=== PATIENT | male | born 1965 ===

== ENCOUNTER 2017-06-14 11:18 | Emergency (ER) | payer MEDICARE, MEDICAID ==
--- NOTE | 2017-06-14 12:38 | C.PDOC ---
History Of Present Illness 52-YEAR-OLD MALE, REFERRED TO THE EMERGENCY DEPARTMENT BY PODIATRY FOR R LEG SWELL. NO TRAUMA/PAIN. NO PE RISK FACTORS. EXAM R LOWER LEG SWELL. NO EDEMA. REMAINDER NEG Time Seen by Provider: 06/14/17 11:57 Chief Complaint (Nursing): Lower Extremity Problem/Injury Past Medical History Reviewed: Historical Data, Nursing Documentation, Vital Signs Vital Signs: Last Vital Signs Temp 98.4 F 06/14/17 11:33 Pulse 82 06/14/17 11:33 Resp 18 06/14/17 11:33 BP 137/78 06/14/17 11:33 Pulse Ox 98 06/14/17 13:00 - Medical History PMH: Anxiety, HTN Surgical History: Pacemaker Family History: States: No Known Family Hx - Social History Hx Alcohol Use: Yes Hx Substance Use: No Review Of Systems Except As Marked, All Systems Reviewed And Found Negative. Constitutional: Negative for: Fever, Chills Respiratory: Negative for: Shortness of Breath Gastrointestinal: Negative for: Vomiting Musculoskeletal: Positive for: Leg Pain Neurological: Negative for: Weakness, Numbness Physical Exam - Physical Exam Appears: Non-toxic, No Acute Distress Skin: Warm, Dry, No Rash Head: Atraumatic, Normacephalic Eye(s): bilateral: Normal Inspection, PERRL Nose: Normal Oral Mucosa: Moist Lips: Normal Appearing Neck: Normal ROM Cardiovascular: Rhythm Regular, No Murmur Respiratory: Normal Breath Sounds, No Accessory Muscle Use Extremity: Normal ROM, No Tenderness, No Deformity, Swelling (RIGHT LOWER LEG. NO EDEMA) Neurological/Psych: Oriented x3, Normal Speech ED Course And Treatment O2 Sat by Pulse Oximetry: 98 (RA) Pulse Ox Interpretation: Normal - Other Rad DOPPLER X-Ray: Read By Radiologist (NEGATIVE PER SHERIFF'S OFFICER REPORT) Reevaluation Time: 13:20 Reassessment Condition: Unchanged (ADVISED FU PODIATRY, POSSIBLE NEED FOR REPEAT DOPPLER IN 1 WEEK IF PERSIST SX) Disposition Counseled Patient/Family Regarding: Studies Performed, Diagnosis, Need For Followup - Disposition Referrals: YOUR,SENIOR BENEFITS ANALYST [Other] Disposition: HOME/ ROUTINE Disposition Time: 13:21 Condition: GOOD Additional Instructions: FOLLOW UP WITH YOUR SENIOR BENEFITS ANALYST. YOU MAY NEED A REPEAT DOPPLER STUDY IF PERSIST SYMPTOMS. RETURN IF WORSENING SYMPTOMS, CHEST PAIN, DIFFICULTY BREATHING, DIZZINESS. Instructions: Leg Edema (ED) Forms: [facility] (Barbadian) - Clinical Impression Clinical Impression: Leg swelling - Scribe Statement The provider has reviewed the documentation as recorded by the Scribe (Aldo Pratt) All medical record entries made by the Scribe were at my direction and personally dictated by me. I have reviewed the chart and agree that the record accurately reflects my personal performance of the history, physical exam, medical decision making, and the department course for this patient. I have also personally directed, reviewed, and agree with the discharge instructions and disposition.
[2017-06-14 13:48] VITALS: BP 120/76; PULSE 79; RESP 20; TEMP 97.7; O2SAT 97
--- NOTE | 2017-06-15 15:20 | VASCLAB ---
PROCEDURE: Right Lower Extremity Venous Duplex Exam. HISTORY: SWELLING PRIORS: None. TECHNIQUE: Right common femoral, femoral, popliteal and posterior tibial, peroneal and great saphenous veins were evaluated. Flow was assessed with color Doppler, compressibility, assessment of phasic flow and augmentation response. Report prepared by VIC Butts, RVT FINDINGS: RIGHT: 1. Common Femoral Vein: 1.1. Compressibility - Fully compressible: Thrombus - None: Flow - Phasic: Augmentation -Normal: Reflux - None. 2. Femoral Vein: 2.1. Compressibility - Fully compressible: Thrombus - None: Flow - Phasic: Augmentation -Normal: Reflux - None. 3. Popliteal Vein: 3.1. Compressibility - Fully compressible: Thrombus - None: Flow - Phasic: Augmentation -Normal: Reflux - None. 4. Posterior Tibial Vein: 4.1. Compressibility - Fully compressible: Thrombus - None: Flow - Phasic: Augmentation -Normal: Reflux - None. 5. Peroneal Vein: 5.1. Compressibility - Fully compressible: Thrombus - None: Flow - Phasic: Augmentation -Normal: Reflux - None. 6. Great Saphenous Vein: 6.1. Compressibility - Fully compressible: Thrombus -None: Flow - Phasic: Augmentation - Normal: Reflux - None. OTHER FINDINGS: IMPRESSION: No evidence of deep or superficial vein thrombosis of the right lower extremity with excellent venous flow. Normal valve function noted of the right side. Normal venous flow noted in the left common femoral vein.
== END 2017-06-14 13:50 | disposition home or self-care (01) ==
LOC: C.ER 11:18
DX: M79.89 Other specified soft tissue disorders (principal); I10 Essential (primary) hypertension

== ENCOUNTER 2017-09-09 10:51 | Emergency (ER) | payer MEDICARE, MEDICAID ==
[2017-09-09 11:01] VITALS: BMI 45.3
[2017-09-09 11:44] VITALS: BP 130/78; PULSE 68; RESP 20; TEMP 98.2; O2SAT 98
[2017-09-09] MEDS ORDERED: Amoxicillin-Clav 875-125 mg Tab PO STA (11:51)
--- NOTE | 2017-09-09 11:53 | C.PDOC ---
History Of Present Illness 52 yo male come in for evaluation of Right earache gradually developed for past few days. Pt reports, today noted some clear discharges from ear. Otherwise, denies high fever, chills, headache, known trauma or injury, vertigo, dizziness , recent illness, sore throat, neck pain, denies nay other active complaints. Ambulate to ED for evaluation, not in any apparent distress. Time Seen by Provider: 09/09/17 11:06 Chief Complaint (Nursing): ENT Problem History Per: Patient Onset/Duration Of Symptoms: Gradual Past Medical History Reviewed: Historical Data, Nursing Documentation, Vital Signs Vital Signs: Last Vital Signs Temp 98.2 F 09/09/17 11:40 Pulse 68 09/09/17 11:40 Resp 20 09/09/17 11:40 BP 130/78 09/09/17 11:40 Pulse Ox 98 09/09/17 11:56 - Medical History PMH: Anxiety, HTN Surgical History: Pacemaker Family History: States: No Known Family Hx - Social History Hx Alcohol Use: Yes Hx Substance Use: No - Immunization History Hx Tetanus Toxoid Vaccination: No Hx Influenza Vaccination: Yes Hx Pneumococcal Vaccination: No Review Of Systems Except As Marked, All Systems Reviewed And Found Negative. Constitutional: Negative for: Fever, Chills ENT: Positive for: Ear Pain, Ear Discharge. Negative for: Nose Discharge, Nose Congestion, Mouth Swelling, Throat Pain, Throat Swelling Respiratory: Negative for: Cough, Shortness of Breath Musculoskeletal: Negative for: Neck Pain Skin: Negative for: Rash Neurological: Negative for: Altered Mental Status, Headache, Dizziness Physical Exam - Physical Exam Appears: Well, Non-toxic, No Acute Distress Skin: Normal Color, Warm, Dry Head: Normacephalic Eye(s): bilateral: PERRL Ear(s): Left: Normal, Right: TM Erythema, Other (mild ear canal edema with scant greenish discharges. No mastoid tenderness.) Nose: No Flaring, No Discharge Oral Mucosa: Moist, No Drooling Tongue: Normal Appearing Lips: Normal Appearing Throat: No Erythema, No Drooling Neck: Trachea Midline, Supple Lymphatic: No Adenopathy (cervical) Extremity: Normal ROM, No Deformity, No Swelling Neurological/Psych: Oriented x3, Normal Speech ED Course And Treatment O2 Sat by Pulse Oximetry: 98 Pulse Ox Interpretation: Normal Progress Note: On re-evaluation, pt is afebrile, hemodynamicaly stable. Non- toxic. PulseOx 98% RA. ENT: exam c/w acute otitis externa, OM to Right ear. NO mastoid tenderness, edema or erythema. Neck: Supple, (-) meningeal sign. Lungs: CTA B/L, BS equal B/L. Neurologicaly intact. Pt advised on course of ds. REf. to f/u with PMD, ENT in 2 days for re-eval. return to ED if any worsening or new changes. Disposition Counseled Patient/Family Regarding: Diagnosis, Need For Followup, Rx Given - Disposition Referrals: Michoacano Jacome MD [Staff Provider] - Disposition: HOME/ ROUTINE Disposition Time: 11:52 Condition: STABLE Additional Instructions: Keep ear clean, dry Avoid water exposure Follow up with PMD, ENT in2 days for re-evaluation. Return to ED if any worsening or new changes. Prescriptions: Amoxicillin/Clavulanate [Augmentin 875 MG-125 MG] 1 tab PO BID #14 tab Ibuprofen [Motrin Tab] 600 mg PO Q6 #20 tab Neomycin/Polymyxin/Hydrocortis [Cortisporin Otic Susp] 6 drop AD TID #1 bottle Instructions: Ear Infections (Otitis Media), Outer Ear Infection Forms: [facility] (Albanian) Print Language: MEXICAN - Clinical Impression Clinical Impression: Otitis externa, Otitis media
[2017-09-09] MEDS ORDERED: Amoxicillin-Clav 875-125 mg Tab PO ONE (12:25)
== END 2017-09-09 12:26 | disposition home or self-care (01) ==
LOC: C.ER 10:51
DX: H60.91 Unspecified otitis externa, right ear (principal); H66.91 Otitis media, unspecified, right ear

== ENCOUNTER 2018-03-02 10:25 | Emergency (ER) | payer MEDICARE, MEDICAID ==
[2018-03-02 10:25] VITALS: BMI 45.3
[2018-03-02 10:39] VITALS: TEMP 99.5
[2018-03-02] MEDS ORDERED: Albuterol 0.083% Inhal Sol (2.5 mg/3 mL) UD INH STA (11:13)
--- NOTE | 2018-03-02 11:13 | C.PDOC ---
History Of Present Illness 52 y/o male presents to the ED complaining of cough, chest congestion, and pleuritic pain for 2 days. Associated with subjective fever. Denies prior history of asthma or smoking. Otherwise patient denies any SOB, MACHUCA, wheezing, palpitations, dizziness, weakness, or other associated symptoms. Time Seen by Provider: 03/02/18 11:10 Chief Complaint (Nursing): Flu-like Symptoms History Per: Patient History/Exam Limitations: no limitations Onset/Duration Of Symptoms: Days (x2) Current Symptoms Are (Timing): Still Present Past Medical History Reviewed: Historical Data, Nursing Documentation, Vital Signs Vital Signs: Last Vital Signs Temp 99.5 F 03/02/18 10:34 Pulse 99 H 03/02/18 10:34 Resp 21 03/02/18 10:34 BP 150/74 03/02/18 10:34 Pulse Ox 100 03/02/18 10:34 - Medical History PMH: Anxiety, HTN, Hypercholesterolemia Surgical History: Back Surgery (3 screws), Pacemaker Family History: States: No Known Family Hx - Social History Hx Tobacco Use: No (former) Hx Alcohol Use: No Hx Substance Use: No - Immunization History Hx Tetanus Toxoid Vaccination: (unk) Hx Influenza Vaccination: Yes (2018) Hx Pneumococcal Vaccination: (unk) Review Of Systems Except As Marked, All Systems Reviewed And Found Negative. Constitutional: Positive for: Fever (subjective). Negative for: Sweats, Other (bodyaches) Eyes: Negative for: Vision Change Cardiovascular: Positive for: Other (Chest congestion). Negative for: Palpitations, Light Headedness Respiratory: Positive for: Cough, Pleuritic Pain. Negative for: Shortness of Breath, SOB with Excertion, Wheezing Gastrointestinal: Negative for: Vomiting, Diarrhea Neurological: Negative for: Weakness, Numbness, Headache, Dizziness Physical Exam - Physical Exam Appears: Non-toxic, No Acute Distress Skin: Normal Color, Warm, Dry Head: Atraumatic, Normacephalic Eye(s): bilateral: Normal Inspection, PERRL, EOMI Ear(s): Bilateral: Normal Nose: Normal, No Discharge Oral Mucosa: Moist Throat: Normal, No Erythema, No Exudate Neck: Normal ROM Chest: Symmetrical, No Tenderness Cardiovascular: Rhythm Regular, No Murmur Respiratory: No Accessory Muscle Use, No Rhonchi, No Wheezing, Other (Occasional bronchial cough, no retractions) Extremity: Bilateral: Atraumatic, Normal Color And Temperature Pulses: Left Radial: Normal, Right Radial: Normal Neurological/Psych: Oriented x3, Normal Speech ED Course And Treatment O2 Sat by Pulse Oximetry: 100 (RA) Pulse Ox Interpretation: Normal - Radiology CXR: Interpreted by Me CXR Interpretation: Yes: No Acute Disease Progress - Data Reviewed Data Reviewed: Diagnostic imaging, Old records Medical Decision Making Medical Decision Making: Initial Impression: 52 y/o M with cough, chest congestion, and pleuritic pain Initial Plan: --Chest x-ray --Tylenol 975 mg PO --Motrin 600 mg PO --Tessalon perles 200 mg PO --Albuterol nebulizer x1 --Reassess and dispo CXR read by me, and is negative. Informed patient regarding results and discharge plan. Patient reports improvement after ED treatment and is stable for d/c home. Prescriptions provided for tessalon perles, antipyretics, and ventolin inhaler. Disposition Counseled Patient/Family Regarding: Studies Performed, Diagnosis, Need For Followup, Rx Given - Disposition Referrals: YOUR,PMD [Other] Disposition: HOME/ ROUTINE Disposition Time: 11:20 Condition: IMPROVED Prescriptions: Acetaminophen [Tylenol Extra Strength] 2 tab PO Q6 #30 tablet Albuterol HFA [Ventolin HFA 90 mcg/actuation (8 g)] 1 puff IH Q4 #1 inhaler Benzonatate [Tessalon Perles] 200 mg PO TID PRN #15 sgl PRN Reason: Cough Ibuprofen [Motrin] 600 mg PO Q6 #30 tab Instructions: Viral Upper Respiratory Infection, Adult (DC) Forms: [employer] (Gambian), Work Excuse Print Language: CYPRIOT - Clinical Impression Clinical Impression: URI (upper respiratory infection) - Scribe Statement The provider has reviewed the documentation as recorded by the Scribe (Rachael Gross) Provider Attestation: All medical record entries made by the Scribe were at my direction and personally dictated by me. I have reviewed the chart and agree that the record accurately reflects my personal performance of the history, physical exam, medical decision making, and the department course for this patient. I have also personally directed, reviewed, and agree with the discharge instructions and disposition.
[2018-03-02] MEDS ORDERED: Albuterol 0.083% Inhal Sol (2.5 mg/3 mL) UD ONE (11:19)
[2018-03-02 11:47] VITALS: BP 130/70; PULSE 82; RESP 20
[2018-03-02 11:58] VITALS: O2SAT 100
--- NOTE | 2018-03-02 14:24 | RAD ---
Date of service: 03/02/2018 HISTORY: COUGH COMPARISON: No prior. TECHNIQUE: Chest PA and lateral FINDINGS: LUNGS: No active pulmonary disease. PLEURA: No significant pleural effusion identified. No pneumothorax apparent. CARDIOVASCULAR: No radiographic findings to suggest acute or significant cardiovascular disease. Position/ configuration of pacemaker device: Satisfactory. OSSEOUS STRUCTURES: No significant abnormalities. VISUALIZED UPPER ABDOMEN: Normal. OTHER FINDINGS: None. IMPRESSION: No active disease. Concordant results with the preliminary interpretation rendered by the emergency department physician procedure.
== END 2018-03-02 12:01 | disposition home or self-care (01) ==
LOC: C.ER 10:25
DX: J06.9 Acute upper respiratory infection, unspecified (principal)

== ENCOUNTER 2018-03-15 22:17 | Inpatient (IN) | payer MEDICARE, MEDICAID ==
[2018-03-15 22:18] VITALS: BMI 45.3
[2018-03-15] MEDS ORDERED: Aspirin 325 mg EC Tablets PO STA (22:38)
[2018-03-15] MEDS ORDERED: Nitroglycerin 2% Ointment Foilpak UD TOP STA (22:38)
[2018-03-15 22:43] LABS: BASO # 0.1 K/uL (0.0-0.2); BASO % 0.5 % (0.0-2.0); EOS # 0.1 K/uL (0.0-0.7); EOS % 1.4 % (0.0-4.0); HEMOGLOBIN 16.2 g/dL (12.0-18.0); LYMPH # 2.6 K/uL (1.0-4.3); LYMPH % 25.1 % (20.0-40.0); MEAN CELL VOLUME 98.8 fL (80.0-94.0); MEAN CORPUSCULAR HEMOGLOBIN 33.5 pg (27.0-31.0); MEAN CORPUSCULAR HGB CONC 33.9 g/dL (33.0-37.0); MEAN PLATELET VOLUME 10.2 fL (7.2-11.7); MONO # 0.6 K/uL (0.0-0.8); MONO % 6.1 % (0.0-10.0); NEUT # 6.9 K/uL (1.8-7.0); NEUT % 66.9 % (50.0-75.0); RBC 4.85 Mil/uL (4.40-5.90); RED CELL DISTRIBUTION WIDTH 13.7 % (11.5-14.5); WHITE BLOOD COUNT 10.4 K/uL (4.8-10.8)
[2018-03-15] MEDS ORDERED: Aspirin 325 mg EC Tablets PO ONE (22:46)
[2018-03-15] MEDS ORDERED: Nitroglycerin 2% Ointment Foilpak UD TOP ONE (22:46)
[2018-03-15 22:51] LABS: INR 1.3; PROTHROMBIN TIME 14.2 SECONDS (9.7-12.2)
[2018-03-15 22:56] LABS: ALB/GLOB RATIO 1.3 (1.0-2.1); ALBUMIN 4.3 g/dL (3.5-5.0); ALT/SGPT 21 U/L (21-72); AST/SGOT 17 U/L (17-59); BLOOD UREA NITROGEN 11 mg/dL (9-20); CALCIUM 9.4 mg/dl (8.6-10.4); GFR NON-AFRICAN AMERICAN > 60
[2018-03-15 23:07] LABS: B-TYPE NATRIURETIC PEPTIDE 211 pg/mL (0-900)
--- NOTE | 2018-03-15 23:11 | C.PDOC ---
History Of Present Illness 53 year old male brought in by family for a complaint of chest pressure/pain radiating to the left arm that began [employer], associated with anxiety. Patient has a Hx of ID with stent x1 seven years ago and Hx of anxiety. He take carvedilol BID but did not take his dose today, he also takes klonopin PRN but did not take it today. Denies fever, chills, nausea, or vomiting. Patient still smokes a half a pack a day, smells like cigarette smoke. Time Seen by Provider: 03/15/18 22:33 Chief Complaint (Nursing): Chest Pain History Per: Patient History/Exam Limitations: no limitations Onset/Duration Of Symptoms: Hrs Current Symptoms Are (Timing): Still Present Quality: Pressure Associated Symptoms: Other (Anxiety). denies: Nausea, Dyspnea, Diaphoresis, Syncope Modifying Factors: None Exacerbating Factors: None Alleviating Factors: None Recent travel outside of the [place]: No Past Medical History Reviewed: Historical Data, Nursing Documentation, Vital Signs Vital Signs: Last Vital Signs Temp 98.6 F 03/15/18 22:24 Pulse 101 H 03/15/18 22:53 Resp 18 03/15/18 22:53 BP 142/87 03/15/18 22:53 Pulse Ox 96 03/15/18 22:53 - Medical History PMH: Anxiety, HTN, Hypercholesterolemia Surgical History: Back Surgery (3 screws), Pacemaker Family History: States: Unknown Family Hx - Social History Hx Tobacco Use: No (former) Hx Alcohol Use: No Hx Substance Use: No - Immunization History Hx Tetanus Toxoid Vaccination: (unk) Hx Influenza Vaccination: Yes (2018) Hx Pneumococcal Vaccination: (unk) Review Of Systems Constitutional: Negative for: Fever, Chills Cardiovascular: Positive for: Chest Pain Respiratory: Negative for: Cough, Shortness of Breath Gastrointestinal: Negative for: Nausea, Vomiting Neurological: Negative for: Weakness, Numbness Psych: Positive for: Anxiety Physical Exam - Physical Exam Appears: Non-toxic, Other (Obese, anxious) Skin: Warm, Dry Head: Atraumatic, Normacephalic Eye(s): bilateral: Normal Inspection Oral Mucosa: Moist Neck: Normal, Supple Chest: No Tenderness, Other (Left upper chest) Cardiovascular: Rhythm Regular Respiratory: Normal Breath Sounds, No Rales, No Rhonchi, No Wheezing Gastrointestinal/Abdominal: Soft, No Tenderness Extremity: Other (1/4 pitting edema lower extremities) Neurological/Psych: Oriented x3, Normal Speech ED Course And Treatment - Laboratory Results Result Diagrams: 03/15/18 22:38 03/15/18 22:38 O2 Sat by Pulse Oximetry: 96 (Room air) Pulse Ox Interpretation: Normal Progress Note: EKG, blood work, and CXR ordered. Coreg, aspirin, klonopin administered; nitro-bid applied. Disposition - Disposition Referrals: Brielle Roque MD [Primary Care Provider] - Forms: [employer] (Uzbek) - Scribe Statement The provider has reviewed the documentation as recorded by the Scribe Kalyan Cavanaugh All medical record entries made by the Scribe were at my direction and personally dictated by me. I have reviewed the chart and agree that the record accurately reflects my personal performance of the history, physical exam, medical decision making, and the department course for this patient. I have also personally directed, reviewed, and agree with the discharge instructions and disposition.
[2018-03-15 23:34] VITALS: O2SAT 94
[2018-03-16] MEDS ORDERED: Albuterol HFA 90 mcg/actuation (8 g) IH SCH
[2018-03-16 00:09] LABS: CK-MB 2.3 ng/mL (0.0-3.38); TROPONIN I 0.013 ng/mL (0.00-0.120)
[2018-03-16 07:57] VITALS: RESP 20; TEMP 97.5
--- NOTE | 2018-03-16 08:00 | RAD ---
Date of service: 03/15/2018 PROCEDURE: CHEST RADIOGRAPH, 1 VIEW HISTORY: SOB COMPARISON: 03/02/2018 FINDINGS: LUNGS: No consolidation. Slightly decreased lung volumes PLEURA: No pneumothorax. CARDIOVASCULAR: Cardiomegaly Position/ configuration of pacemaker Satisfactory.-similar Interval increased pulmonary venous congestion-now mild There is absence of aortic atherosclerotic calcification on x-ray. OSSEOUS STRUCTURES: No significant abnormalities. VISUALIZED UPPER ABDOMEN: Normal. OTHER FINDINGS: None. IMPRESSION: Cardiomegaly Position/ configuration of pacemaker Satisfactory.-similar Interval increased pulmonary venous congestion-now mild
[2018-03-16 09:11] VITALS: BP 116/79; PULSE 83
[2018-03-16] MEDS ORDERED: Enoxaparin 40 mg Syringe SC SCH (10:00)
[2018-03-16] MEDS ORDERED: guaiFENesin DM 100 mg-10 mg/5 ml UD PO PRN (10:01)
[2018-03-16 12:09] LABS: BASO % 0.5 % (0.0-2.0); EOS # 0.2 K/uL (0.0-0.7); EOS % 2.4 % (0.0-4.0); HEMOGLOBIN 15.6 g/dL (12.0-18.0); LYMPH # 2.7 K/uL (1.0-4.3); LYMPH % 32.3 % (20.0-40.0); MEAN CELL VOLUME 99.3 fL (80.0-94.0); MEAN CORPUSCULAR HEMOGLOBIN 33.6 pg (27.0-31.0); MEAN CORPUSCULAR HGB CONC 33.9 g/dL (33.0-37.0); MEAN PLATELET VOLUME 10.6 fL (7.2-11.7); MONO # 0.7 K/uL (0.0-0.8); MONO % 7.7 % (0.0-10.0); NEUT # 4.8 K/uL (1.8-7.0); NEUT % 57.1 % (50.0-75.0); RBC 4.64 Mil/uL (4.40-5.90); RED CELL DISTRIBUTION WIDTH 13.5 % (11.5-14.5); WHITE BLOOD COUNT 8.5 K/uL (4.8-10.8)
--- NOTE | 2018-03-16 12:27 | CP.PCM.CON ---
History of Present Illness - History of Present Illness History of Present Illness: I was asked to evaluate patient by Dr Perez. Patient seen 03/16/18 at 12:20 pm Patient is a 53 year old male with ischemic cardiomyopathy (occluded RCA) s/p AICD HTn, hypercholesterolemia who presents with chest pain. The patient describes left arm pain which began while sitting. He states the pain radiated to his shoulder and then his chest. He presented to [facility] for further management. he denies current chest pain. Of noted stress perfomred in the office last month was negative for ischemia. Review of Systems - Constitutional Constitutional: absent: As Per HPI, Anorexia, Chills, Daytime Sleepiness, Excessive Sweating, Fatigue, Fever, Frequent Falls, Headache, Increased Appetite, Lethargy, Malaise, Night Sweats, Snoring, Sleep Apnea, Weight Gain, Weight Loss, Weakness, Other - EENT Eyes: absent: As Per HPI, Blind Spots, Blurred Vision, Change in Vision, Decreased Night Vision, Diplopia, Discharge, Dry Eye, Exophthalmos, Floaters, Irritation, Itchy Eyes, Loss of Peripheral Vision, Pain, Photophobia, Requires Corrective Lenses, Sees Flashes, Spots in Vision, Tunnel Vision, Other Visual Disturbances, Loss of Vision, Other Ears: absent: As Per HPI, Decreased Hearing, Ear Discharge, Ear Pain, Tinnitus, Abnormal Hearing, Disequilibrium, Dizziness, Other Nose/Mouth/Throat: absent: As Per HPI, Epistaxis, Nasal Congestion, Nasal Discharge, Nasal Obstruction, Nasal Trauma, Nose Pain, Post Nasal Drip, Sinus Pain, Sinus Pressure, Bleeding Gums, Change in Voice, Dental Pain, Dry Mouth, Dysphagia, Halitosis, Hoarsness, Lip Swelling, Mouth Lesions, Mouth Pain, Odynophagia, Sore Throat, Throat Swelling, Tongue Swelling, Facial Pain, Neck Pain, Neck Mass, Other - Cardiovascular Cardiovascular: Chest Pain - Respiratory Respiratory: absent: As Per HPI, Cough, Dyspnea, Hemoptysis, Dyspnea on Exertion, Wheezing, Snoring, Stridor, Pain on Inspiration, Chest Congestion, Excessive Mucous Production, Change in Mucous Color, Pain with Coughing, Other - Gastrointestinal Gastrointestinal: absent: As Per HPI, Abdominal Pain, Belching, Bloating, Change in Bowel Habits, Change in Stool Character, Coffee Ground Emesis, Constipation, Cramping, Diarrhea, Dyspepsia, Dysphagia, Early Satiety, Excessive Flatus, Fecal Incontinence, Heartburn, Hematemesis, Hematochezia, Loose Stools, Melena, Nausea, Odynophagia, Temesmus, Vomiting, Other - Genitourinary Genitourinary: absent: As Per HPI, Change in Urinary Stream, Difficulty Urinating, Dysuria, Flank Pain, Hematuria, Pyuria, Nocturia, Urinary Inco ntinence, Urinary Frequency, Urinary Hesitance, Urinary Urgency, Voiding Freq/Small Amts, Freq UTI, Hx Renal/Bladder Calculi, Hx /Renal Surgery, Bladder Distension, Other - Musculoskeletal Musculoskeletal: absent: As Per HPI, Abnormal Gait, Arthralgias, Atrophy, Back Pain, Deformity, Joint Swelling, Limited Range of Motion, Loss of Height, Muscle Cramps, Muscle Weakness, Myalgias, Neck Pain, Numbness, Radiating Pain into Limb, Stiffness, Tingling, Other - Integumentary Integumentary: absent: As Per HPI, Acne, Alopecia, Bleeding Lesions, Change in Hair, Change in Nails, Change in Pigmentation, Changing Lesions, Dry Skin, Erythema, Furuncle, Hirsutism, Lesions, New Lesions, Non-Healing Lesions, Photosensitivity, Pruritus, Rash, Skin Pain, Skin Ulcer, Sores, Striae, Swelling, Unusual Bruising, Wounds, Jaundice, Other - Neurological Neurological: absent: As Per HPI, Abnormal Gait, Abnormal Hearing, Abnormal Movements, Abnormal Speech, Behavioral Changes, Burning Sensations, Confusion, Convulsions, Disequilibrium, Dizziness, Numbness, Focal Weakness, Frequent Falls, Headaches, Lack of Coordination, Loss of Vision, Memory Loss, Paresthesias, Radicular Pain, Restless Legs, Sensory Deficit, Syncope, Tingling, Tremor, Vertigo, Weakness, Other Visual Disturbances, Other - Psychiatric Psychiatric: absent: As Per HPI, Abnormal Sleep Pattern, Anhedonia, Anxiety, Auditory Hallucinations, Behavioral Changes, Change in Appetite, Change in Libido, Confusion, Depression, Difficulty Concentrating, Hallucinations, Homicidal Ideation, Hopelessness, Irritability, Memory Loss, Mood Swings, Panic Attacks, Paranoia, Suicidal Ideation, Visual Hallucinations, Tactile Hallucinations, Other - Endocrine Endocrine: absent: As Per HPI, Change in Body Appearance, Change in Libido, Cold Intolorance, Deepening of Voice, Excessive Sweating, Fatigue, Flushing, Heat Intolorance, Increase in Ring/Shoe/Hat Size, Palpitations, Polydipsia, Polyphagia, Polyuria, Other - Hematologic/Lymphatic Hematologic: absent: As Per HPI, Easy Bleeding, Easy Bruising, Lymphadenopathy, Other Past Patient History - Infectious Disease Hx of Infectious Diseases: None - Past Social History Smoking Status: Light Smoker < 10 Cigarettes Daily - CARDIAC Hx Hypercholesterolemia: Yes Hx Hypertension: Yes Hx Pacemaker: Yes - PULMONARY Hx Respiratory Disorders: No - NEUROLOGICAL Hx Neurological Disorder: No - HEENT Hx HEENT Problems: No - RENAL Hx Chronic Kidney Disease: No - ENDOCRINE/METABOLIC Hx Endocrine Disorders: No - HEMATOLOGICAL/ONCOLOGICAL Hx Blood Disorders: No - INTEGUMENTARY Hx Dermatological Problems: No - MUSCULOSKELETAL/RHEUMATOLOGICAL Hx Musculoskeletal Disorders: No Hx Falls: No - GASTROINTESTINAL Hx Gastrointestinal Disorders: No - GENITOURINARY/GYNECOLOGICAL Hx Genitourinary Disorders: No - PSYCHIATRIC Hx Anxiety: Yes Hx Substance Use: No - SURGICAL HISTORY Hx Surgeries: Yes Hx Coronary Stent: Yes Other/Comment: Pacemaker insertion - ANESTHESIA Hx Anesthesia: Yes Hx Anesthesia Reactions: No Hx Malignant Hyperthermia: No Meds Allergies/Adverse Reactions: Allergies Allergy/AdvReac Type Severity Reaction Status Date / Time No Known Allergies Allergy Verified 03/15/18 22:19 - Medications Medications: Current Medications Albuterol (Ventolin Hfa 90 Mcg/Actuation (8 G)) 1 puff IH RQ4 [facility] Last Admin: 03/16/18 07:47 Dose: Not Given Aspirin (Ecotrin) 81 mg PO DAILY [facility] Last Admin: 03/16/18 09:47 Dose: 81 mg Carvedilol (Coreg) 12.5 mg PO BID [facility] Last Admin: 03/16/18 09:11 Dose: 12.5 mg Clonazepam (Klonopin) 0.5 mg PO DAILY [facility] Last Admin: 03/16/18 09:11 Dose: 0.5 mg Enoxaparin Sodium (Lovenox) 40 mg SC DAILY [facility] Last Admin: 03/16/18 09:12 Dose: 40 mg Fluoxetine HCl (Prozac) 20 mg PO DAILY [facility] Last Admin: 03/16/18 09:12 Dose: 20 mg Guaifenesin/Dextromethorphan (Robitussin Dm) 5 ml PO Q4H PRN PRN Reason: Cough Last Admin: 03/16/18 11:20 Dose: 5 ml Home Med (Acetaminophen [Tylenol Extra Strength]) 2 tab PO Q6 [facility] Rosuvastatin Calcium (Crestor) 20 mg PO HS [facility] Physical Exam - Constitutional Appears: Non-toxic - Head Exam Head Exam: NORMAL INSPECTION - Eye Exam Eye Exam: Normal appearance - ENT Exam ENT Exam: Mucous Membranes Moist - Neck Exam Neck exam: Positive for: Full Rom - Respiratory Exam Respiratory Exam: NORMAL BREATHING PATTERN - Cardiovascular Exam Cardiovascular Exam: REGULAR RHYTHM - GI/Abdominal Exam GI & Abdominal Exam: Normal Bowel Sounds - Rectal Exam Rectal Exam: Deferred - Extremities Exam Extremities exam: Negative for: pedal edema - Back Exam Back exam: NORMAL INSPECTION - Neurological Exam Neurological exam: Alert, Oriented x3 - Psychiatric Exam Psychiatric exam: Normal Affect - Skin Skin Exam: Normal Color Results - Vital Signs Recent Vital Signs: Last Vital Signs Temp 97.5 F L 03/16/18 07:56 Pulse 83 03/16/18 09:10 Resp 20 03/16/18 07:56 BP 116/79 03/16/18 09:11 Pulse Ox 94 L 03/16/18 07:56 - Labs Result Diagrams: 03/16/18 11:59 03/15/18 22:38 Labs: Laboratory Results - last 24 hr 03/15/18 03/15/18 03/15/18 22:38 22:38 22:38 WBC 10.4 RBC 4.85 Hgb 16.2 Hct 47.9 MCV 98.8 H MCH 33.5 H MCHC 33.9 RDW 13.7 Plt Count 152 MPV 10.2 Neut % (Auto) 66.9 Lymph % (Auto) 25.1 [place] % (Auto) 6.1 Eos % (Auto) 1.4 Baso % (Auto) 0.5 Neut # (Auto) 6.9 Lymph # (Auto) 2.6 [place] # (Auto) 0.6 Eos # (Auto) 0.1 Baso # (Auto) 0.1 PT 14.2 H INR 1.3 APTT 38 H Sodium 142 Potassium 3.9 Chloride 103 Carbon Dioxide 28 Anion Gap 15 BUN 11 Creatinine 1.1 Est GFR ( Amer) > 60 Est GFR (Non-Af Amer) > 60 POC Glucose (mg/dL) Random Glucose 146 H Calcium 9.4 Total Bilirubin 0.9 AST 17 ALT 21 Alkaline Phosphatase 72 Total Creatine Kinase CK-MB (Mass) Troponin I 0.0160 NT-Pro-B Natriuret Pep 211 Total Protein 7.5 Albumin 4.3 Globulin 3.2 Albumin/Globulin Ratio 1.3 Triglycerides Cholesterol LDL Cholesterol Direct HDL Cholesterol 03/15/18 03/16/18 03/16/18 23:48 06:11 11:59 WBC 8.5 RBC 4.64 Hgb 15.6 Hct 46.1 MCV 99.3 H MCH 33.6 H MCHC 33.9 RDW 13.5 Plt Count 137 MPV 10.6 Neut % (Auto) 57.1 Lymph % (Auto) 32.3 [place] % (Auto) 7.7 Eos % (Auto) 2.4 Baso % (Auto) 0.5 Neut # (Auto) 4.8 Lymph # (Auto) 2.7 [place] # (Auto) 0.7 Eos # (Auto) 0.2 Baso # (Auto) 0.0 PT INR APTT Sodium Potassium Chloride Carbon Dioxide Anion Gap BUN Creatinine Est GFR ( Amer) Est GFR (Non-Af Amer) POC Glucose (mg/dL) 101 Random Glucose Calcium Total Bilirubin AST ALT Alkaline Phosphatase Total Creatine Kinase 193 H CK-MB (Mass) 2.30 Troponin I 0.0130 NT-Pro-B Natriuret Pep Total Protein Albumin Globulin Albumin/Globulin Ratio Triglycerides 182 H Cholesterol 229 H LDL Cholesterol Direct 171 H HDL Cholesterol 37 - EKG Data EKG Interpreted by: Myself EKG shows normal: Sinus rhythm Assessment & Plan (1) CAD (coronary artery disease) Assessment and Plan: patient has known occluded RCA stent. He has no current chest pain. will opt for medical therapy. continue antiplatelet therapy.. can add Ranexa for relief of angina. outpatient follow up Status: Acute (2) Ischemic cardiomyopathy Assessment and Plan: s/p AICD Status: Acute (3) HTN (hypertension) Assessment and Plan: blood pressure control Status: Acute (4) Hypercholesteremia Assessment and Plan: DLD ismarkedly elevated. He is on maximum tolerated statin therapy. Recommend Repatha. discussed with patient. outpatient follow up Status: Acute
[2018-03-16 12:34] LABS: CK-MB 1.92 ng/mL (0.0-3.38)
[2018-03-16 12:37] LABS: ALB/GLOB RATIO 1.2 (1.0-2.1); ALBUMIN 3.8 g/dL (3.5-5.0); ALT/SGPT 21 U/L (21-72); AST/SGOT 16 U/L (17-59); BLOOD UREA NITROGEN 16 mg/dL (9-20); CALCIUM 9.3 mg/dl (8.6-10.4); GFR NON-AFRICAN AMERICAN > 60
--- NOTE | 2018-03-16 14:49 | CP.PCM.PN ---
Subjective - Date & Time of Evaluation Date of Evaluation: 03/16/18 Time of Evaluation: 14:49 - Subjective Subjective: PATIENT SEEN AND EXAMINED AT THE BEDSIDE Objective - Vital Signs/Intake and Output Vital Signs (last 24 hours): Temp Pulse Resp BP Pulse Ox 97.5 F L 83 20 116/79 94 L 03/16/18 07:56 03/16/18 09:10 03/16/18 07:56 03/16/18 09:11 03/16/18 07:56 Intake and Output: 03/16/18 03/16/18 06:59 18:59 Intake Total 400 Balance 400 - Medications Medications: Current Medications Acetaminophen (Tylenol 325mg Tab) 650 mg PO Q6H PRN PRN Reason: Pain, Mild to Moderate (1-7) Albuterol (Ventolin Hfa 90 Mcg/Actuation (8 G)) 1 puff IH RQ4 [facility] Last Admin: 03/16/18 07:47 Dose: Not Given Aspirin (Ecotrin) 81 mg PO DAILY [facility] Last Admin: 03/16/18 09:47 Dose: 81 mg Carvedilol (Coreg) 12.5 mg PO BID [facility] Last Admin: 03/16/18 09:11 Dose: 12.5 mg Clonazepam (Klonopin) 0.5 mg PO DAILY [facility] Last Admin: 03/16/18 09:11 Dose: 0.5 mg Enoxaparin Sodium (Lovenox) 40 mg SC DAILY [facility] Last Admin: 03/16/18 09:12 Dose: 40 mg Fluoxetine HCl (Prozac) 20 mg PO DAILY [facility] Last Admin: 03/16/18 09:12 Dose: 20 mg Guaifenesin/Dextromethorphan (Robitussin Dm) 5 ml PO Q4H PRN PRN Reason: Cough Last Admin: 03/16/18 11:20 Dose: 5 ml Rosuvastatin Calcium (Crestor) 20 mg PO HS [facility] - Labs Labs: 03/16/18 11:59 03/16/18 11:59 PT 14.2 SECONDS (9.7-12.2) H 03/15/18 22:38 INR 1.3 03/15/18 22:38 APTT 38 SECONDS (21-34) H 03/15/18 22:38 Assessment and Plan - Assessment and Plan (Free Text) Assessment: FOLLOW UP WITH DR TORIBIO IN HIS OFFICE ---CALL FOR APPOINTMENT FOLLOW UP WITH DR CAMPOS IN HIS OFFICE ---CALL FOR APPOINTMENT CONTINUE HOME MEDICATION NEW PRESCRIPTION GIVEN PRAVACHOL 80 MG PO DAILY [facility] CALL DR TORIBIO OR GO TO THE EMERGENCY ROOM IF SYMPTOMS RETURN OR WORSENING
--- NOTE | 2018-03-16 15:05 | CARD ---
APPROVED REPORT Date of service: 03/16/2018 EXAM: Two-dimensional and M-mode echocardiogram with Doppler and color Doppler. Other Information Quality : GoodRhythm : INDICATION Chest Pain 2D DIMENSIONS IVSd1.3 (0.7-1.1cm)LVDd4.8 (3.9-5.9cm) PWd1.4 (0.7-1.1cm)LA [id number] (18-58mL) LVDs3.8 (2.5-4.0cm)FS (%) 20.7 % LVEF (%)45.0 (>50%)LVEF (Aviles's)30.46 % M-Mode DIMENSIONS Left Atrium (MM)3.89 (2.5-4.0cm)IVSd1.05 (0.7-1.1cm) Aortic Root3.24 (2.2-3.7cm)LVDd5.67 (4.0-5.6cm) Aortic Cusp Exc.2.34 (1.5-2.0cm)PWd1.05 (0.7-1.1cm) FS (%) 27 %LVDs4.11 (2.0-3.8cm) LVEF (%)53 (>50%) Mitral Valve MV E Unqjsina83.0cm/sMV A Cgcvrnbn22.3cm/sE/A ratio0.7 TDI Lateral E' Peak V4.09cm/sMedial E' Peak V5.25cm/sE/Lateral E'15.9 E/Medial E'12.4 Tricuspid Valve TR Peak [id number]/sTR Peak [id number] LEFT VENTRICLE The left ventricle is normal size. There is mild concentric left ventricular hypertrophy. The systolic function is mildly impaired. The Ejection Fraction is 40-45%. There is global hypokinesis of the left ventricle.. Transmitral Doppler flow pattern is Grade I-abnormal relaxation pattern..LV filling pressures are mildly elevated No left ventricle thrombus noted on this study. There is no ventricular septal defect visualized. There is no left ventricular aneurysm. There is no mass noted in the left ventricle. RIGHT VENTRICLE The right ventricle is normal size. There is normal right ventricular wall thickness. The right ventricular systolic function is normal. ATRIA The left atrium size is normal. The right atrium size is normal. The interatrial septum is intact with no evidence for an atrial septal defect. AORTIC VALVE The aortic valve is normal in structure and function. No aortic regurgitation is present. There is no aortic valvular stenosis. There is no aortic valvular vegetation. MITRAL VALVE The mitral valve is normal in structure and function. There is no evidence of mitral valve prolapse. There is no mitral valve stenosis. There is no mitral valve regurgitation noted. TRICUSPID VALVE The tricuspid valve is normal in structure and function. There is mild tricuspid regurgitation. Right ventricular systolic pressure is estimated at less than 30 mmHg. There is no tricuspid valve prolapse or vegetation. There is no tricuspid valve stenosis. PULMONIC VALVE The pulmonary valve is normal in structure and function. There is no pulmonic valvular regurgitation. There is no pulmonic valvular stenosis. GREAT VESSELS The aortic root is normal in size. The ascending aorta is normal in size. The pulmonary artery is normal. The IVC is normal in size and collapses >50% with inspiration. PERICARDIAL EFFUSION The pericardium appears normal. There is no pleural effusion. <Conclusion> The systolic function is mildly impaired. The Ejection Fraction is 40-45%. There is global hypokinesis of the left ventricle.. Transmitral Doppler flow pattern is Grade I-abnormal relaxation pattern..LV filling pressures are mildly elevated
[2018-03-16] MEDS ORDERED: Rosuvastatin Calcium 2.5 mg Tab PO SCH (22:00)
--- NOTE | 2018-03-16 22:36 | CP.PCM.HP ---
Past Patient History - Infectious Disease Hx of Infectious Diseases: None - Past Social History Smoking Status: Light Smoker < 10 Cigarettes Daily - CARDIAC Hx Hypercholesterolemia: Yes Hx Hypertension: Yes Hx Pacemaker: Yes - PULMONARY Hx Respiratory Disorders: No - NEUROLOGICAL Hx Neurological Disorder: No - HEENT Hx HEENT Problems: No - RENAL Hx Chronic Kidney Disease: No - ENDOCRINE/METABOLIC Hx Endocrine Disorders: No - HEMATOLOGICAL/ONCOLOGICAL Hx Blood Disorders: No - INTEGUMENTARY Hx Dermatological Problems: No - MUSCULOSKELETAL/RHEUMATOLOGICAL Hx Musculoskeletal Disorders: No Hx Falls: No - GASTROINTESTINAL Hx Gastrointestinal Disorders: No - GENITOURINARY/GYNECOLOGICAL Hx Genitourinary Disorders: No - PSYCHIATRIC Hx Anxiety: Yes Hx Substance Use: No - SURGICAL HISTORY Hx Surgeries: Yes Hx Coronary Stent: Yes Other/Comment: Pacemaker insertion - ANESTHESIA Hx Anesthesia: Yes Hx Anesthesia Reactions: No Hx Malignant Hyperthermia: No Meds Home Medications: Home Medication List Medication Instructions Recorded Confirmed Type Pravastatin Sodium [Pravachol] 80 mg PO DAILY 30 Days tab 03/16/18 Rx Allergies/Adverse Reactions: Allergies Allergy/AdvReac Type Severity Reaction Status Date / Time No Known Allergies Allergy Verified 03/15/18 22:19 Results - Vital Signs Recent Vital Signs: Last Vital Signs Temp 97.5 F L 03/16/18 07:56 Pulse 83 03/16/18 09:10 Resp 20 03/16/18 07:56 BP 116/79 03/16/18 09:11 Pulse Ox 94 L 03/16/18 07:56 - Labs Result Diagrams: 03/16/18 11:59 03/16/18 11:59 Labs: Laboratory Results - last 24 hr 03/15/18 03/15/18 03/15/18 22:38 22:38 22:38 WBC 10.4 RBC 4.85 Hgb 16.2 Hct 47.9 MCV 98.8 H MCH 33.5 H MCHC 33.9 RDW 13.7 Plt Count 152 MPV 10.2 Neut % (Auto) 66.9 Lymph % (Auto) 25.1 [place] % (Auto) 6.1 Eos % (Auto) 1.4 Baso % (Auto) 0.5 Neut # (Auto) 6.9 Lymph # (Auto) 2.6 [place] # (Auto) 0.6 Eos # (Auto) 0.1 Baso # (Auto) 0.1 PT 14.2 H INR 1.3 APTT 38 H Sodium 142 Potassium 3.9 Chloride 103 Carbon Dioxide 28 Anion Gap 15 BUN 11 Creatinine 1.1 Est GFR ( Amer) > 60 Est GFR (Non-Af Amer) > 60 POC Glucose (mg/dL) Random Glucose 146 H Calcium 9.4 Total Bilirubin 0.9 AST 17 ALT 21 Alkaline Phosphatase 72 Total Creatine Kinase CK-MB (Mass) Troponin I 0.0160 NT-Pro-B Natriuret Pep 211 Total Protein 7.5 Albumin 4.3 Globulin 3.2 Albumin/Globulin Ratio 1.3 Triglycerides Cholesterol LDL Cholesterol Direct HDL Cholesterol 03/15/18 03/16/18 03/16/18 23:48 06:11 11:59 WBC RBC Hgb Hct MCV MCH MCHC RDW Plt Count MPV Neut % (Auto) Lymph % (Auto) [place] % (Auto) Eos % (Auto) Baso % (Auto) Neut # (Auto) Lymph # (Auto) [place] # (Auto) Eos # (Auto) Baso # (Auto) PT INR APTT Sodium 141 Potassium 3.6 Chloride 101 Carbon Dioxide 29 Anion Gap 14 BUN 16 Creatinine 1.1 Est GFR ( Amer) > 60 Est GFR (Non-Af Amer) > 60 POC Glucose (mg/dL) 101 Random Glucose 132 H Calcium 9.3 Total Bilirubin 0.6 AST 16 L ALT 21 Alkaline Phosphatase 54 Total Creatine Kinase 193 H 174 H CK-MB (Mass) 2.30 1.92 Troponin I 0.0130 < 0.0120 NT-Pro-B Natriuret Pep Total Protein 6.9 Albumin 3.8 Globulin 3.1 Albumin/Globulin Ratio 1.2 Triglycerides 182 H Cholesterol 229 H LDL Cholesterol Direct 171 H HDL Cholesterol 37 03/16/18 11:59 WBC 8.5 RBC 4.64 Hgb 15.6 Hct 46.1 MCV 99.3 H MCH 33.6 H MCHC 33.9 RDW 13.5 Plt Count 137 MPV 10.6 Neut % (Auto) 57.1 Lymph % (Auto) 32.3 [place] % (Auto) 7.7 Eos % (Auto) 2.4 Baso % (Auto) 0.5 Neut # (Auto) 4.8 Lymph # (Auto) 2.7 [place] # (Auto) 0.7 Eos # (Auto) 0.2 Baso # (Auto) 0.0 PT INR APTT Sodium Potassium Chloride Carbon Dioxide Anion Gap BUN Creatinine Est GFR ( Amer) Est GFR (Non-Af Amer) POC Glucose (mg/dL) Random Glucose Calcium Total Bilirubin AST ALT Alkaline Phosphatase Total Creatine Kinase CK-MB (Mass) Troponin I NT-Pro-B Natriuret Pep Total Protein Albumin Globulin Albumin/Globulin Ratio Triglycerides Cholesterol LDL Cholesterol Direct HDL Cholesterol
--- NOTE | 2018-03-17 08:18 | HP ---
CHIEF COMPLAINT: Chest pain. HISTORY OF PRESENT ILLNESS: This is a 53-year-old male with history of morbid obesity, ischemic cardiomyopathy, occluded right coronary artery disease, status post AICD, hypertension, hyperlipidemia, came in because of left-sided chest pain radiating to the left arm in the form of tingling. According to the patient, it first radiated from the arm to his shoulder and then to his chest. He came to the emergency room. By the time, he came to the emergency room, he stopped having chest pain. He denies any fevers, chills, rigors. He denies any cough, sore throat, runny nose. He denies any nausea or vomiting. He has decreased appetite . He has night sweats, and he snores heavily. The patient has weight gain. The patient feels sleepy during daytime. The patient denies any sneezing, itchy eyes, itchy nose. He denies any dyspepsia. He denies any history of hemostasis, melena, or hematochezia. He denies any abdominal pain, belching, bloating, change in the bowel habits, change in stool character or coffee ground emesis, constipation, cramping, diarrhea, dyspepsia, dysphagia, early satiety. He denies any history of change in urinary stream, difficulty urinating, dysuria, frequency. He denies any joint pain, hip pain. He denies any history of hirsutism. He denied any skin disease. He denied any seizures, disequilibrium. PAST MEDICAL HISTORY: Coronary artery disease, hypertension, hyperlipidemia. SOCIAL HISTORY: He smokes less than 10 cigarettes a day. He drinks social alcohol. CURRENT MEDICATIONS: At home are albuterol HFA, Tylenol, Prozac, clonazepam, Coreg, Toprol XL, Pravachol. Past medical history as above. PHYSICAL EXAMINATION: GENERAL: Middle-aged male, in no acute distress. Denies chest pain. VITAL SIGNS: Blood pressure 128/83, pulse 77, respiratory rate 20, temperature 97.5. SKIN: The patient has tattoos. No rashes. No bruits. No purpura. No petechiae. HEENT: Atraumatic, normocephalic. Negative pallor. Negative jaundice. Extraocular movements are intact. NECK: Supple. No JVD. No lymph node. No thyromegaly. No carotid bruits. CHEST WALL: Bilateral symmetrical expansion. LUNGS: Bilaterally clear. No rales. No rhonchi. CARDIOVASCULAR SYSTEM: PMI not localized. S1 and S2, regular. No heave. No thrill. ABDOMEN: Soft, nontender. Bowel sounds are positive. RECTAL: No masses. No bleed. EXTREMITIES: No clubbing, cyanosis, or edema. CENTRAL NERVOUS SYSTEM: Awake, alert, and oriented x3. ASSESSMENT: 1. Chest pain, rule out myocardial infarction. 2. Hypertension. 3. Coronary artery disease with ischemic cardiomyopathy. PLAN: Cardiac enzymes x2 negative. As per Dr. Roque, the patient had a recent stress test which is negative, and the patient is cleared for discharged. The patient is being discharged for outpatient followup. Rosas Perez MD
--- NOTE | 2018-03-17 11:31 | CARD ---
APPROVED REPORT Date of service: 03/15/2018 EKG Measurement Heart [id number] <Conclusion> Atrial-sensed ventricular-paced rhythm Abnormal ECG
--- NOTE | 2018-03-17 11:31 | CARD ---
APPROVED REPORT Date of service: 03/16/2018 EKG Measurement Heart [id number] <Conclusion> Atrial-sensed ventricular-paced rhythm Abnormal ECG
== END 2018-03-16 15:53 | disposition home or self-care (01) | DRG 303 ==
LOC: SUPCPDRO 22:17 → C.ER 22:17 → C.5S 23:21
PROVIDERS: ADMIT Internal Medicine; ATTEND Internal Medicine
DX: I25.119 Atherosclerotic heart disease of native coronary artery with unspecified angina pectoris (principal); I25.5 Ischemic cardiomyopathy; F41.9 Anxiety disorder, unspecified; I10 Essential (primary) hypertension; E78.5 Hyperlipidemia, unspecified; E78.00 Pure hypercholesterolemia, unspecified; F17.210 Nicotine dependence, cigarettes, uncomplicated; E66.01 Morbid (severe) obesity due to excess calories; Z68.42 Body mass index [BMI] 45.0-49.9, adult; Z95.810 Presence of automatic (implantable) cardiac defibrillator; Z95.5 Presence of coronary angioplasty implant and graft; I25.2 Old myocardial infarction

== ENCOUNTER 2018-05-21 13:14 | Emergency (ER) | payer MEDICARE, MEDICAID ==
[2018-05-21 13:24] VITALS: BMI 44.2
[2018-05-21] MEDS ORDERED: Sodium Chloride 0.9% 1,000 ML IV ONE (13:49)
[2018-05-21 14:12] LABS: BASO # 0.1 K/uL (0.0-0.2); BASO % 0.9 % (0.0-2.0); EOS # 0.1 K/uL (0.0-0.7); EOS % 1.1 % (0.0-4.0); HEMOGLOBIN 15.2 g/dL (12.0-18.0); LYMPH # 0.7 K/uL (1.0-4.3); LYMPH % 11.2 % (20.0-40.0); MEAN CELL VOLUME 100.5 fL (80.0-94.0); MEAN CORPUSCULAR HEMOGLOBIN 34.9 pg (27.0-31.0); MEAN CORPUSCULAR HGB CONC 34.8 g/dL (33.0-37.0); MEAN PLATELET VOLUME 9.8 fL (7.2-11.7); MONO # 0.8 K/uL (0.0-0.8); MONO % 12.9 % (0.0-10.0); NEUT # 4.7 K/uL (1.8-7.0); NEUT % 73.9 % (50.0-75.0); RBC 4.35 Mil/uL (4.40-5.90); RED CELL DISTRIBUTION WIDTH 14.7 % (11.5-14.5); WHITE BLOOD COUNT 6.4 K/uL (4.8-10.8)
[2018-05-21 14:19] LABS: INR 1.2; PROTHROMBIN TIME 12.9 SECONDS (9.7-12.2)
--- NOTE | 2018-05-21 14:22 | C.PDOC ---
History Of Present Illness 53 y/o male presents to the ED complaining of fever, bodyaches, chest pain, headache, and cough since this morning. No SOB. Patient states (+) sick contacts, his at home has similar symptoms. He denies any nausea, vomiting, diaphoresis, diarrhea, abdominal pain, or dark or bloody stool. Time Seen by Provider: 05/21/18 13:40 Chief Complaint (Nursing): Chest Pain History Per: Patient History/Exam Limitations: no limitations Onset/Duration Of Symptoms: Hrs Current Symptoms Are (Timing): Still Present Past Medical History Reviewed: Historical Data, Nursing Documentation, Vital Signs Vital Signs: Last Vital Signs Temp 101 F H 05/21/18 13:32 Pulse 104 H 05/21/18 13:32 Resp 24 05/21/18 13:32 BP 135/78 05/21/18 13:32 Pulse Ox 95 05/21/18 13:32 - Medical History PMH: Anxiety, HTN, Hypercholesterolemia Denies: Chronic Kidney Disease Surgical History: Back Surgery (3 screws), Coronary Stent, Pacemaker Family History: States: Unknown Family Hx - Social History Hx Tobacco Use: No (former) Hx Alcohol Use: No Hx Substance Use: No - Immunization History Hx Tetanus Toxoid Vaccination: (unk) Hx Influenza Vaccination: Yes (2018) Hx Pneumococcal Vaccination: (unk) Review Of Systems Constitutional: Positive for: Fever, Other (Bodyaches). Negative for: Sweats Cardiovascular: Positive for: Chest Pain. Negative for: Palpitations Respiratory: Positive for: Cough. Negative for: Shortness of Breath, SOB with Excertion Gastrointestinal: Negative for: Nausea, Vomiting, Abdominal Pain, Diarrhea, Melena, Hematochezia Neurological: Positive for: Headache. Negative for: Weakness, Numbness, Incoordination, Dizziness Physical Exam - Physical Exam Appears: Non-toxic, In Acute Distress (painful distress, clutching his right diaphragm, complaining of muscle cramp) Skin: Warm, Dry Head: Atraumatic, Normacephalic Eye(s): bilateral: Normal Inspection, PERRL, EOMI Oral Mucosa: Moist Neck: Normal ROM Chest: Symmetrical, No Tenderness (no chest wall tenderness) Cardiovascular: Rhythm Regular (but tachycardic) Respiratory: No Rales, No Rhonchi, No Wheezing, Other (Lungs clear to ausc ultation) Gastrointestinal/Abdominal: Soft, Tenderness (Mild diffuse abdominal tenderness), No Distention, No Guarding Back: No CVA Tenderness, No Vertebral Tenderness Extremity: Bilateral: Atraumatic, Normal Color And Temperature Pulses: Left Dorsalis Pedis: Normal, Right Dorsalis Pedis: Normal Neurological/Psych: Oriented x3 ED Course And Treatment - Laboratory Results Result Diagrams: 05/21/18 14:07 05/21/18 14:07 O2 Sat by Pulse Oximetry: 95 (RA) Pulse Ox Interpretation: Normal - Other Rad CXR X-Ray: Read By Radiologist Interpretation: Accession No. : [id number]. Patient Name / ID : KELLY ELI / [id number]. Exam Date : 05/21/2018 14:00:24 ( Approved ). Study Comment : Sex / Age : M / 53Y. Creator : Radha Castillo MD. Dictator : Radha Castillo MD. Puff Ironer : Supervisor Claims : Radha Castillo MD. Approver2 : Report Date : 05/21/2018 14:30:03. My Comment : . Date of service: 05/21/2018. HISTORY: Sepsis Patient. COMPARISON: 03/15/2018. FINDINGS: LUNGS: The lungs are well inflated and clear. PLEURA: No pleural effusions or pneumothorax. CARDIOVASCULAR: There is mild cardiomegaly. There is stable position of left-sided permanent pacing device with no aortic atherosclerotic calcification present. OSSEOUS STRUCTURES: Within normal limits for the patient's age. VISUALIZED UPPER ABDOMEN: Normal. OTHER FINDINGS: None. IMPRESSION: No active pulmonary disease. Medical Decision Making Medical Decision Making: Impression: Flu-like symptoms, Chest pain, r/o ACS Plan: --VBG --EKG --Blood work with cardiac enzymes --Chest x-ray --Flu swab --Blood cultures --Urine cultures --Urinalysis --IV fluids --60 mg IM Toradol --Reeval 13:22 EKG: atrial sense ventricular-paced rhythm, at 107 bpm, normal intervals, no ectopy, no ST elevation Labs reviewed, flu negative. Trop negative. 1653- Patient re-evaluated s/p 2L NS bolus, toradol, tylenol. Temp now 98.9, HR 86. Patient appears comfortable, reports pain has improved. Results discussed. Flu swab negative however will prescribe tamiflu as patient has flu like symptoms that developed less than 24hrs ago. Disposition - Disposition Disposition: HOME/ ROUTINE Disposition Time: 16:54 Condition: STABLE Additional Instructions: SREEDHAR MENDOZA, thank you for letting us take care of you today. Your provider was Delilah Gomez MD and you were treated for CHEST PAIN/SOB. The emergency medical care you received today was directed at your acute symptoms. If you were prescribed any medication, please fill it and take as directed. It may take several days for your symptoms to resolve. Return to the Emergency Department if your symptoms worsen, do not improve, or if you have any other problems. Please contact your doctor or call one of the physicians/clinics you have been referred to that are listed on the Patient Visit Information form that is included in your discharge packet. Bring any paperwork you were given at discharge with you along with any medications you are taking to your follow up visit. Our treatment cannot replace ongoing medical care by a primary care provider outside of the emergency department. Thank you for allowing the [facility] team to be part of your care today. If you had an X-Ray or CT scan: A Radiologist will review the ED reading if any change in treatment is needed we will contact you. If you had a blood, urine, or wound culture: It will take several days for the results, if any change in treatment is needed we will contact you. If you had an STI test: It will take 48 hours for the results. Please call after 1 week if you have not heard back. Prescriptions: Oseltamivir Phosphate [Tamiflu] 75 mg PO BID 5 Days capsule Instructions: Viral Syndrome (DC) Forms: [employer] (Liberian) - Clinical Impression Clinical Impression: Influenza-like illness - Scribe Statement The provider has reviewed the documentation as recorded by the Jose Gross Provider Attestation: All medical record entries made by the Jose were at my direction and pers onally dictated by me. I have reviewed the chart and agree that the record accurately reflects my personal performance of the history, physical exam, medical decision making, and the department course for this patient. I have also personally directed, reviewed, and agree with the discharge instructions and disposition.
[2018-05-21 14:24] LABS: ALB/GLOB RATIO 1.4 (1.0-2.1); ALBUMIN 4.1 g/dL (3.5-5.0); ALT/SGPT 38 U/L (21-72); AST/SGOT 29 U/L (17-59); BLOOD UREA NITROGEN 11 mg/dL (9-20); CALCIUM 8.6 mg/dl (8.6-10.4); GFR NON-AFRICAN AMERICAN > 60
[2018-05-21 14:24] LABS: VENOUS BLOOD GAS BASE EXCESS 2.5 mmol/L (0.0-2.0); VENOUS BLOOD GAS PCO2 48 mmHg (40-60); VENOUS BLOOD GAS PO2 28 mm/Hg (30-55); VENOUS BLOOD PH 7.38 (7.32-7.43)
--- NOTE | 2018-05-21 14:33 | RAD ---
Date of service: 05/21/2018 HISTORY: Sepsis Patient COMPARISON: 03/15/2018. FINDINGS: LUNGS: The lungs are well inflated and clear. PLEURA: No pleural effusions or pneumothorax. CARDIOVASCULAR: There is mild cardiomegaly. There is stable position of left-sided permanent pacing device with no aortic atherosclerotic calcification present. OSSEOUS STRUCTURES: Within normal limits for the patient's age. VISUALIZED UPPER ABDOMEN: Normal. OTHER FINDINGS: None. IMPRESSION: No active pulmonary disease.
[2018-05-21 15:26] VITALS: PULSE 96
[2018-05-21 16:18] VITALS: O2SAT 95
[2018-05-21 17:36] VITALS: BP 154/93; RESP 16; TEMP 98.2
--- NOTE | 2018-05-24 13:05 | CARD ---
APPROVED REPORT Date of service: 05/21/2018 EKG Measurement Heart [id number] <Conclusion> Sinus tachycardia Atrial-sensed ventricular-paced rhythm Abnormal ECG
== END 2018-05-21 17:36 | disposition home or self-care (01) ==
LOC: C.ER 13:14
DX: J11.1 Influenza due to unidentified influenza virus with other respiratory manifestations (principal); E78.00 Pure hypercholesterolemia, unspecified; I10 Essential (primary) hypertension
CPT/HCPCS: 71045; 80053; 82803; 83735; 84100; 84484; 85025; 85610; 85730; 87040; 87804; 93005; 96372; 99285; J1885; J7030

== ENCOUNTER 2018-07-21 22:02 | Emergency (ER) | payer MEDICARE, MEDICAID ==
[2018-07-21 22:02] VITALS: BMI 44.2
--- NOTE | 2018-07-21 22:38 | C.PDOC ---
History Of Present Illness 53 year old male with Hx of pace maker and hyperlipidemia presents with chest pain, SOB, and subjective fever since last night associated with dry cough and rash around neck and left shoulder. reports sharp pain to left chest, worse with coughing Denies other complaints at this time. Patient is a poor historian. Time Seen by Provider: 07/21/18 22:22 Chief Complaint (Nursing): Chest Pain History Per: Patient History/Exam Limitations: no limitations Onset/Duration Of Symptoms: Days Current Symptoms Are (Timing): Still Present Associated Symptoms: Other (SOB, subjective fever, dry cough, rash) Modifying Factors: None Exacerbating Factors: None Alleviating Factors: None Recent travel outside of the [place]: No Past Medical History Reviewed: Historical Data, Nursing Documentation, Vital Signs Vital Signs: Last Vital Signs Temp 100.2 F H 07/21/18 22:15 Pulse 113 H 07/21/18 22:15 Resp 14 07/21/18 22:35 BP 152/101 H 07/21/18 22:15 Pulse Ox 96 07/21/18 22:35 - Medical History PMH: Anxiety, Depression, HTN, Hypercholesterolemia Denies: Chronic Kidney Disease Surgical History: Back Surgery (3 screws), Coronary Stent, Pacemaker Family History: States: Unknown Family Hx - Social History Hx Tobacco Use: No (former) Hx Alcohol Use: No Hx Substance Use: No - Immunization History Hx Tetanus Toxoid Vaccination: (unk) Hx Influenza Vaccination: Yes (2018) Hx Pneumococcal Vaccination: (unk) Review Of Systems Constitutional: Positive for: Fever (Subjective). Negative for: Chills Cardiovascular: Positive for: Chest Pain Respiratory: Positive for: Cough, Shortness of Breath Gastrointestinal: Negative for: Nausea, Vomiting, Diarrhea Skin: Positive for: Rash Neurological: Negative for: Weakness, Numbness Physical Exam - Physical Exam Appears: Non-toxic Skin: Warm, Dry, Rash (vesicular to left neck) Head: Atraumatic, Normacephalic Eye(s): bilateral: Normal Inspection Oral Mucosa: Moist Neck: Normal, Supple Chest: Tenderness ((+)left sided point ttp) Cardiovascular: Rhythm Regular Respiratory: Normal Breath Sounds, No Rales, No Rhonchi, No Wheezing Gastrointestinal/Abdominal: Soft, No Tenderness Neurological/Psych: Oriented x3, Normal Speech ED Course And Treatment - Laboratory Results Result Diagrams: 07/21/18 22:47 07/21/18 22:47 ECG: Interpreted By Me, Viewed By Me ECG Rhythm: V Paced ECG Interpretation: No Acute Changes Rate From EC O2 Sat by Pulse Oximetry: 96 (Room air) Pulse Ox Interpretation: Normal Medical Decision Making Medical Decision Making: atypical cp ro acs- also with shingles exam consistent with specific msk pain. as he has point ttp with reproduces exact pain he describes. also with shinglges. recnet neg sttress test. troponin neg. EKG, blood work, CXR, flu swab, and urinalysis ordered. Tylenol and acyclovir administered. Disposition - Disposition Referrals: Leonard Roque MD [Staff Provider] - [facility] [Outside] [facility] [Outside] Disposition: HOME/ ROUTINE Disposition Time: 23:24 Condition: STABLE Additional Instructions: return to er with worsening symptoms or concerns. please see your doctor/clinic. Prescriptions: Acyclovir [Zovirax] 800 mg PO 5XD #35 tab Instructions: Shingles, Chest Pain Forms: [employer] (Singaporean) - Clinical Impression Clinical Impression: Chest pain, Shingles, Viral syndrome - Scribe Statement The provider has reviewed the documentation as recorded by the Scribe Kalyan Cavanaugh All medical record entries made by the Scribe were at my direction and personally dictated by me. I have reviewed the chart and agree that the record accurately reflects my personal performance of the history, physical exam, medical decision making, and the department course for this patient. I have also personally directed, reviewed, and agree with the discharge instructions and di sposition.
[2018-07-21 22:51] LABS: BASO % 0.7 % (0.0-2.0); EOS % 0.2 % (0.0-4.0); HEMOGLOBIN 16.6 g/dL (12.0-18.0); LYMPH # 0.9 K/uL (1.0-4.3); LYMPH % 14.6 % (20.0-40.0); MEAN CELL VOLUME 101.2 fL (80.0-94.0); MEAN CORPUSCULAR HGB CONC 33.6 g/dL (33.0-37.0); MEAN PLATELET VOLUME 9.7 fL (7.2-11.7); MONO # 0.6 K/uL (0.0-0.8); MONO % 9.5 % (0.0-10.0); NEUT # 4.6 K/uL (1.8-7.0); NRBC % 0.1 % (0.0-2.0); RBC 4.87 Mil/uL (4.40-5.90); RED CELL DISTRIBUTION WIDTH 14.4 % (11.5-14.5); WHITE BLOOD COUNT 6.2 K/uL (4.8-10.8)
[2018-07-21 23:02] LABS: ALB/GLOB RATIO 1.5 (1.0-2.1); ALBUMIN 4.5 g/dL (3.5-5.0); ALT/SGPT 41 U/L (21-72); AST/SGOT 28 U/L (17-59); BLOOD UREA NITROGEN 13 mg/dL (9-20); CALCIUM 8.8 mg/dl (8.6-10.4); GFR NON-AFRICAN AMERICAN 58; INR 1.3; PROTHROMBIN TIME 14.6 SECONDS (9.7-12.2)
[2018-07-21 23:15] LABS: B-TYPE NATRIURETIC PEPTIDE 933 pg/mL (0-900)
[2018-07-21 23:19] LABS: URINE BACTERIA RARE (<OCC); URINE BILIRUBIN NEGATIVE (NEGATIVE); URINE BLOOD 2+ (NEGATIVE); URINE CLARITY Clear (Clear); URINE COLOR Amber (YELLOW); URINE GLUCOSE (UA) NORMAL (Normal); URINE LEUKOCYTE ESTERASE NEG Leu/uL (Negative); URINE PROTEIN 1+ mg/dL (NEGATIVE)
[2018-07-22 01:29] VITALS: BP 115/73; PULSE 91; RESP 16; TEMP 98.4
[2018-07-22 02:02] VITALS: O2SAT 96
--- NOTE | 2018-07-22 07:02 | RAD ---
Date of service: 07/21/2018 PROCEDURE: CHEST RADIOGRAPH, 1 VIEW HISTORY: chest pain COMPARISON: 05/21/2017 FINDINGS: LUNGS: Clear. PLEURA: No pneumothorax or pleural fluid seen. CARDIOVASCULAR: No aortic atherosclerotic calcification present. Heart size probably top-normal. Pacemaker AICD device in place-as before. Position satisfactory; gross integrity apparent OSSEOUS STRUCTURES: No significant abnormalities. VISUALIZED UPPER ABDOMEN: Normal. OTHER FINDINGS: None. IMPRESSION: No active disease.No interval pathology noted.
== END 2018-07-22 01:30 | disposition home or self-care (01) ==
LOC: C.ER 22:02
DX: R07.9 Chest pain, unspecified (principal); B02.9 Zoster without complications; B34.9 Viral infection, unspecified
CPT/HCPCS: 71045; 80053; 81001; 83880; 84484; 85025; 85610; 85730; 87804; 96374; 99285; J1885

== ENCOUNTER 2018-09-11 15:02 | Inpatient (IN) | payer MEDICARE, MEDICAID ==
[2018-09-11 15:03] VITALS: BMI 44.2
[2018-09-11 15:50] LABS: BASO % 0.3 % (0.0-2.0); EOS % 0.7 % (0.0-4.0); HEMOGLOBIN 15.9 g/dL (12.0-18.0); LYMPH # 0.9 K/uL (1.0-4.3); LYMPH % 15.3 % (20.0-40.0); MEAN CELL VOLUME 101.3 fL (80.0-94.0); MEAN CORPUSCULAR HEMOGLOBIN 34.5 pg (27.0-31.0); MEAN CORPUSCULAR HGB CONC 34.1 g/dL (33.0-37.0); MEAN PLATELET VOLUME 10.4 fL (7.2-11.7); MONO # 0.4 K/uL (0.0-0.8); NEUT # 4.4 K/uL (1.8-7.0); NEUT % 76.7 % (50.0-75.0); NRBC % 0.1 % (0.0-2.0); RBC 4.59 Mil/uL (4.40-5.90); RED CELL DISTRIBUTION WIDTH 14.5 % (11.5-14.5); WHITE BLOOD COUNT 5.8 K/uL (4.8-10.8)
--- NOTE | 2018-09-11 15:57 | RAD ---
Date of service: 09/11/2018 HISTORY: sob COMPARISON: 07/21/2018 TECHNIQUE: 1 view obtained. FINDINGS: LUNGS: Extensive right basilar opacity. Suspicious for pneumonia. This represents interval change from the prior examination. PLEURA: No significant pleural effusion identified, no pneumothorax apparent. CARDIOVASCULAR: No aortic atherosclerotic calcification present. Mild cardiomegaly. AICD.. No pulmonary vascular congestion. OSSEOUS STRUCTURES: No significant abnormalities. VISUALIZED UPPER ABDOMEN: Normal. OTHER FINDINGS: None. IMPRESSION: Right basilar opacity. Suspicious for pneumonia.
[2018-09-11 16:03] LABS: ALB/GLOB RATIO 1.2 (1.0-2.1); ALBUMIN 3.8 g/dL (3.5-5.0); ALT/SGPT 63 U/L (21-72); AST/SGOT 131 U/L (17-59); BLOOD UREA NITROGEN 19 mg/dL (9-20); CALCIUM 8.6 mg/dl (8.6-10.4); GFR NON-AFRICAN AMERICAN > 60
[2018-09-11] MEDS ORDERED: Sodium Chloride 0.9% 1,000 ML IV STA (16:12)
[2018-09-11 16:14] LABS: CK-MB 2.54 ng/mL (0.0-3.38)
--- NOTE | 2018-09-11 16:16 | C.PDOC ---
History Of Present Illness 53 y/o M p/w fever and cough x 4 days. Taking azithromycin for 3 days without improvement. Feeling sweaty, with chest pain when coughing. Denies recent travel. No relieving or exacerbating symptoms. PMD [place] Time Seen by Provider: 09/11/18 16:08 Chief Complaint (Nursing): Flu-like Symptoms History Per: Patient History/Exam Limitations: no limitations Onset/Duration Of Symptoms: Days (x4) Current Symptoms Are (Timing): Still Present Recent travel outside of the [place]: No Past Medical History Vital Signs: Last Vital Signs Temp 100.8 F H 09/11/18 16:09 Pulse 100 H 09/11/18 15:07 Resp 22 09/11/18 15:07 BP 100/63 09/11/18 15:07 Pulse Ox 92 L 09/11/18 15:07 - Medical History PMH: Anxiety, Depression, HTN, Hypercholesterolemia Denies: Chronic Kidney Disease Surgical History: Back Surgery (3 screws), Coronary Stent, Pacemaker Family History: States: Unknown Family Hx - Social History Hx Tobacco Use: No (former) Hx Alcohol Use: No Hx Substance Use: No - Immunization History Hx Tetanus Toxoid Vaccination: (unk) Hx Influenza Vaccination: Yes (2018) Hx Pneumococcal Vaccination: (unk) Review Of Systems Except As Marked, All Systems Reviewed And Found Negative. Gastrointestinal: Negative for: Vomiting Genitourinary: Negative for: Dysuria Physical Exam - Physical Exam Additional Physical Exam Comments: gen coughing intermittent head nc/at eyes perrl ent mmm neck supple cv borderline tachycardic lungs cta b/l abd soft, nt back no cva tenderness skin no rash extremities no edema neuro alert ED Course And Treatment - Laboratory Results Result Diagrams: 09/11/18 15:45 09/11/18 15:45 Lab Results: Total Bilirubin 0.7 mg/dL (0.2-1.3) 09/11/18 15:45 AST 131 U/L (17-59) H D 09/11/18 15:45 ALT 63 U/L (21-72) 09/11/18 15:45 Alkaline Phosphatase 54 U/L (38-126) 09/11/18 15:45 Total Protein 7.0 g/dL (6.3-8.3) 09/11/18 15:45 Albumin 3.8 g/dL (3.5-5.0) 09/11/18 15:45 Globulin 3.1 gm/dL (2.2-3.9) 09/11/18 15:45 Albumin/Globulin Ratio 1.2 (1.0-2.1) 09/11/18 15:45 O2 Sat by Pulse Oximetry: 92 Pulse Ox Interpretation: Abnormal Medical Decision Making Medical Decision Making: Initial plan: -Blood sent. -CXR -Rocephin -Toradol -Tylenol -Blood culture Results: LUNGS: Extensive right basilar opacity. Suspicious for pneumonia. This represents interval change from the prior examination. PLEURA: No significant pleural effusion identified, no pneumothorax apparent. CARDIOVASCULAR: No aortic atherosclerotic calcification present. Mild cardiomegaly. AICD.. No pulmonary vascular congestion. OSSEOUS STRUCTURES: No significant abnormalities. VISUALIZED UPPER ABDOMEN: Normal. OTHER FINDINGS: None. IMPRESSION: Right basilar opacity. Suspicious for pneumonia. Failed outpatient therapy. Requires inpatient IV antibiotics. Also with CK 2000, requires IVF, risk of acute kidney failure. Disposition - Disposition Disposition: HOSPITALIZED Disposition Time: 16:47 Condition: GUARDED Forms: [employer] (Kazakh) - POA Core Measure Indicators: Pneumonia - Clinical Impression Clinical Impression: Pneumonia, Rhabdomyolysis, Failure of outpatient treatment
[2018-09-11 16:27] LABS: VENOUS BLOOD GAS BASE EXCESS 2.9 mmol/L (0.0-2.0); VENOUS BLOOD GAS PCO2 43 mmHg (40-60); VENOUS BLOOD GAS PO2 26 mm/Hg (30-55); VENOUS BLOOD PH 7.42 (7.32-7.43)
[2018-09-11] MEDS ORDERED: Sodium Chloride 0.9% 1,000 ML ONE (16:36)
[2018-09-11] MEDS ORDERED: Sodium Chloride 0.9% 1,000 ML IV ONE (16:58)
[2018-09-11 17:37] VITALS: RESP 20
[2018-09-11] MEDS: Sodium Chloride 0.9% 1,000 ML IV SCH (18:30)
--- NOTE | 2018-09-11 20:20 | CP.PCM.HP ---
History of Present Illness - History of Present Illness History of Present Illness: 53-year-old male with a history of anxiety depression hypertension hypercholesterolemia came in because of shortness of breath and cough did not get better Patient is been having a cough and feeling sweaty and chest pain with the yello wish phlegm for last 4 to 5 days although patient took azithromycin as an outpatient so patient decided to come to the emergency room patient's received and IV fluid IV antibiotic in the emergency room patient had a chest x-ray revealed right-sided basilar opacity suggestive of pneumonia Temperature in the emergency room was 100.8 respiratory was 22 blood pressure was 100/63 eventually decided to admit the patient's patient denies nausea vomiting denies diarrhea denies any abdominal discomfort patient claims that he was not hospitalized in the past for the pneumonia PMH: Anxiety, Depression, HTN, Hypercholesterolemia Denies: Chronic Kidney Disease Surgical History: Back Surgery (3 screws), Coronary Stent, Pacemaker Family History: States: Unknown Family Hx - Social History Hx Tobacco Use: No (former) Hx Alcohol Use: No Hx Substance Use: No - Immunization History Hx Tetanus Toxoid Vaccination: (unk) Hx Influenza Vaccination: Yes (2018) Hx Pneumococcal Vaccination: (unk) Review Of Systems Except As Marked, All Systems Reviewed And Found Negative. Gastrointestinal: Negative for: Vomiting Genitourinary: Negative for: Dysuria Present on Admission - Present on Admission Any Indicators Present on Admission: No Past Patient History - Infectious Disease Hx of Infectious Diseases: None - Past Social History Smoking Status: Heavy Smoker > 10 Cigarettes Daily - CARDIAC Hx Hypercholesterolemia: Yes Hx Hypertension: Yes Hx Pacemaker: Yes - PULMONARY Hx Respiratory Disorders: No - NEUROLOGICAL Hx Neurological Disorder: No - HEENT Hx HEENT Problems: No - RENAL Hx Chronic Kidney Disease: No - ENDOCRINE/METABOLIC Hx Endocrine Disorders: No - HEMATOLOGICAL/ONCOLOGICAL Hx Blood Disorders: No - INTEGUMENTARY Hx Dermatological Problems: No - MUSCULOSKELETAL/RHEUMATOLOGICAL Hx Musculoskeletal Disorders: No Hx Falls: No - GASTROINTESTINAL Hx Gastrointestinal Disorders: No - GENITOURINARY/GYNECOLOGICAL Hx Genitourinary Disorders: No - PSYCHIATRIC Hx Anxiety: Yes Hx Depression: Yes Hx Substance Use: No - SURGICAL HISTORY Hx Coronary Stent: Yes - ANESTHESIA Hx Anesthesia: Yes Hx Anesthesia Reactions: No Hx Malignant Hyperthermia: No Meds Allergies/Adverse Reactions: Allergies Allergy/AdvReac Type Severity Reaction Status Date / Time No Known Allergies Allergy Verified 09/11/18 15:11 Physical Exam - Constitutional Appears: Well - Head Exam Head Exam: ATRAUMATIC, NORMAL INSPECTION, NORMOCEPHALIC - Eye Exam Eye Exam: EOMI, Normal appearance, PERRL Pupil Exam: NORMAL ACCOMODATION, PERRL - ENT Exam ENT Exam: Mucous Membranes Moist, Normal Exam - Neck Exam Neck exam: Positive for: Normal Inspection - Respiratory Exam Respiratory Exam: Decreased Breath Sounds, Rales - Cardiovascular Exam Cardiovascular Exam: REGULAR RHYTHM, +S1, +S2 - GI/Abdominal Exam GI & Abdominal Exam: Diminished Bowel Sounds, Soft - Rectal Exam Rectal Exam: Deferred - Neurological Exam Neurological exam: Oriented x3 Results - Vital Signs Recent Vital Signs: Last Vital Signs Temp 99.4 F 09/11/18 17:36 Pulse 84 09/11/18 17:36 Resp 20 09/11/18 17:36 BP 105/58 L 09/11/18 17:36 Pulse Ox 97 09/11/18 17:36 - Labs Result Diagrams: 09/12/18 07:35 09/12/18 07:35 Labs: Laboratory Results - last 24 hr 09/11/18 09/11/18 09/11/18 15:45 15:45 16:23 WBC 5.8 RBC 4.59 Hgb 15.9 Hct 46.5 MCV 101.3 H MCH 34.5 H MCHC 34.1 RDW 14.5 Plt Count 121 L MPV 10.4 Neut % (Auto) 76.7 H Lymph % (Auto) 15.3 L [place] % (Auto) 7.0 Eos % (Auto) 0.7 Baso % (Auto) 0.3 Neut # (Auto) 4.4 Lymph # (Auto) 0.9 L [place] # (Auto) 0.4 Eos # (Auto) 0.0 Baso # (Auto) 0.0 pO2 26 L VBG pH 7.42 VBG pCO2 43 VBG HCO3 25.9 VBG Total CO2 29.2 H VBG O2 Sat (Calc) 53.9 VBG Base Excess 2.9 H VBG Potassium 3.7 Glucose 92 Lactate 1.3 Sodium 132 131.0 L Potassium 4.1 Chloride 95 L 98.0 Carbon Dioxide 29 Anion Gap 12 BUN 19 Creatinine 1.2 Est GFR ( Amer) > 60 Est GFR (Non-Af Amer) > 60 Random Glucose 98 Calcium 8.6 Total Bilirubin 0.7 AST 131 H D ALT 63 Alkaline Phosphatase 54 Total Creatine Kinase 2220 H CK-MB (Mass) 2.54 Troponin I 0.0270 Total Protein 7.0 Albumin 3.8 Globulin 3.1 Albumin/Globulin Ratio 1.2 Venous Blood Potassium 3.7 Assessment & Plan (1) COPD exacerbation Status: Acute (2) Failure of outpatient treatment Status: Acute (3) HERI (obstructive sleep apnea) Status: Acute (4) Pneumonia Status: Acute (5) Rhabdomyolysis Status: Acute (6) CAD (coronary artery disease) Status: Acute (7) Chest discomfort Status: Acute (8) Chest pain Status: Acute (9) HTN (hypertension) Status: Acute (10) Hypercholesteremia Status: Acute (11) Influenza-like illness Status: Acute (12) Ischemic cardiomyopathy Status: Acute (13) Leg swelling Status: Acute (14) Otitis externa Status: Acute (15) Otitis media Status: Acute (16) Shingles Status: Acute (17) URI (upper respiratory infection) Status: Acute (18) Viral syndrome Status: Acute - Assessment and Plan (Free Text) Plan: Plan CBC CMP Pulse ox 92% IV Rocephin IV Zithromax Toradol as needed Septic work-up Sputum for Gram stain Pulmonary consult Patient CPK was 10 to be high so started on IV fluid patient CPK to be repeated tomorrow along with the CBC CMP CPK was 2000 WBC was 5.8 hemoglobin hematocrit 15 and 46 Platelets 06/18/2020 Chloride 95 Potassium 4.1 Sodium 132 Patient to be seen by pulmonary tomorrow Continue same
[2018-09-11] MEDS ORDERED: guaiFENesin DM 200 mg-20 mg/10 ml UD PO PRN (21:58)
[2018-09-11] MEDS ORDERED: guaiFENesin DM 200 mg-20 mg/10 ml UD PO STA (22:03)
[2018-09-12] MEDS: Sodium Chloride 0.9% 1,000 ML IV SCH ×2 (04:28→08:01)
[2018-09-12 08:08] LABS: ALB/GLOB RATIO 1.1 (1.0-2.1); ALBUMIN 3.1 g/dL (3.5-5.0); ALT/SGPT 79 U/L (21-72); AST/SGOT 134 U/L (17-59); BLOOD UREA NITROGEN 22 mg/dL (9-20); CALCIUM 8.1 mg/dl (8.6-10.4); GFR NON-AFRICAN AMERICAN > 60
[2018-09-12 08:10] LABS: BASO % 0.3 % (0.0-2.0); EOS # 0.1 K/uL (0.0-0.7); HEMOGLOBIN 14.6 g/dL (12.0-18.0); LYMPH # 0.9 K/uL (1.0-4.3); LYMPH % 17.9 % (20.0-40.0); MEAN CELL VOLUME 101.6 fL (80.0-94.0); MEAN CORPUSCULAR HEMOGLOBIN 34.8 pg (27.0-31.0); MEAN CORPUSCULAR HGB CONC 34.3 g/dL (33.0-37.0); MEAN PLATELET VOLUME 10.5 fL (7.2-11.7); MONO # 0.4 K/uL (0.0-0.8); MONO % 8.6 % (0.0-10.0); NEUT # 3.4 K/uL (1.8-7.0); NEUT % 70.2 % (50.0-75.0); NRBC % 0.1 % (0.0-2.0); RBC 4.19 Mil/uL (4.40-5.90); RED CELL DISTRIBUTION WIDTH 14.4 % (11.5-14.5); WHITE BLOOD COUNT 4.8 K/uL (4.8-10.8)
[2018-09-12] MEDS: Azithromycin 500 MG in Sodium Chloride 0.9% 250 ML IVPB SCH (09:30)
[2018-09-12] MEDS: Pantoprazole 40 mg EC Tab PO SCH (09:30)
[2018-09-12] MEDS: Enoxaparin 40 mg Syringe SC SCH (09:30)
[2018-09-12] MEDS ORDERED: guaiFENesin DM 200 mg-20 mg/10 ml UD PO SCH (10:00)
--- NOTE | 2018-09-12 11:34 | CP.PCM.CON ---
History of Present Illness - History of Present Illness History of Present Illness: CHART REVIEWED, PT SEEN AND EXAMINED 53 YO HISP MALE WITH A HX CAD, S/P ID +PPM, HTN, HYPERLIPIDEMIA, OBESITY, HERI, ADM WITH INCREASING MOD SOB WITH MIN EXERTION X 1WK +COUGH +BROWN SPUTUM., NO HEMOPTYSIS, +FEVER +CHILLS, NO N/V NO DIARRHEA. NO CP, OCC LEG EDEMA. NO INHALERS, NO HOME NEB ., NO HX PNA. STILL SMOKING. DOES NOT HAVE CPAP. Review of Systems - Review of Systems All systems: reviewed and no additional remarkable complaints except - Constitutional Constitutional: Chills, Fever - EENT Eyes: absent: Change in Vision Nose/Mouth/Throat: absent: Nasal Congestion - Cardiovascular Cardiovascular: absent: Chest Pain - Respiratory Respiratory: Cough, Dyspnea on Exertion, Wheezing, Excessive Mucous Production, Change in Mucous Color. absent: Hemoptysis - Gastrointestinal Gastrointestinal: absent: Nausea, Vomiting - Genitourinary Genitourinary: absent: Dysuria - Musculoskeletal Musculoskeletal: Back Pain - Integumentary Integumentary: absent: Rash - Neurological Neurological: absent: Confusion, Focal Weakness, Syncope - Psychiatric Psychiatric: absent: Confusion - Endocrine Endocrine: absent: Change in Body Appearance - Hematologic/Lymphatic Hematologic: absent: Lymphadenopathy Past Patient History - Infectious Disease Hx of Infectious Diseases: None - Past Medical History & Family History Past Medical History?: Yes Pertinent Family History: +HTN - Past Social History Smoking Status: Heavy Smoker > 10 Cigarettes Daily - CARDIAC Hx Hypercholesterolemia: Yes Hx Hypertension: Yes Hx Pacemaker: Yes - PULMONARY Hx Respiratory Disorders: Yes Hx Sleep Apnea: Yes - NEUROLOGICAL Hx Neurological Disorder: No - HEENT Hx HEENT Problems: No - RENAL Hx Chronic Kidney Disease: No - ENDOCRINE/METABOLIC Hx Endocrine Disorders: No - HEMATOLOGICAL/ONCOLOGICAL Hx Blood Disorders: No - INTEGUMENTARY Hx Dermatological Problems: No - MUSCULOSKELETAL/RHEUMATOLOGICAL Hx Musculoskeletal Disorders: No Hx Back Pain: Yes Hx Falls: No - GASTROINTESTINAL Hx Gastrointestinal Disorders: No - GENITOURINARY/GYNECOLOGICAL Hx Genitourinary Disorders: No - PSYCHIATRIC Hx Anxiety: Yes Hx Depression: Yes Hx Substance Use: No - SURGICAL HISTORY Hx Surgeries: Yes Hx Coronary Stent: Yes Hx Orthopedic Surgery: Yes (LUMBAR) - ANESTHESIA Hx Anesthesia: Yes Hx Anesthesia Reactions: No Hx Malignant Hyperthermia: No Meds Allergies/Adverse Reactions: Allergies Allergy/AdvReac Type Severity Reaction Status Date / Time No Known Allergies Allergy Verified 09/11/18 15:11 - Medications Medications: Current Medications Enoxaparin Sodium (Lovenox) 40 mg SC DAILY [facility] Last Admin: 09/12/18 09:30 Dose: 40 mg Guaifenesin/Dextromethorphan (Robitussin Dm) 10 ml PO TID PRN PRN Reason: Cough and congestion Last Admin: 09/12/18 04:27 Dose: 10 ml Azithromycin 500 mg/ Sodium (Chloride) 250 mls @ 250 mls/hr IVPB DAILY [facility]; Protocol Last Admin: 09/12/18 09:30 Dose: 250 mls/hr Ceftriaxone Sodium 1 gm/ (Sodium Chloride) 100 mls @ 100 mls/hr IVPB DAILY [facility]; Protocol Last Admin: 09/12/18 09:30 Dose: 100 mls/hr Sodium Chloride (Sodium Chloride 0.9%) 1,000 mls @ 75 mls/hr IV .[id number] [facility] Last Admin: 09/12/18 08:01 Dose: Not Given Pantoprazole Sodium (Protonix Ec Tab) 40 mg PO DAILY [facility] Last Admin: 09/12/18 09:30 Dose: 40 mg Physical Exam - Constitutional Appears: No Acute Distress - Head Exam Head Exam: ATRAUMATIC, NORMOCEPHALIC - Eye Exam Eye Exam: EOMI, Normal appearance - ENT Exam ENT Exam: Mucous Membranes Moist - Neck Exam Neck exam: Positive for: Normal Inspection - Respiratory Exam Respiratory Exam: Decreased Breath Sounds, Prolonged Expiratory Phase, Rhonchi. absent: Accessory Muscle Use, Wheezes - Cardiovascular Exam Cardiovascular Exam: RRR, +S1, +S2 - GI/Abdominal Exam GI & Abdominal Exam: Soft. absent: Tenderness Additional comments: OBESE - Rectal Exam Rectal Exam: Deferred - Extremities Exam Extremities exam: Positive for: pedal edema. Negative for: calf tenderness - Back Exam Back exam: absent: CVA tenderness (L), CVA tenderness (R) - Neurological Exam Neurological exam: Alert, Oriented x3 - Psychiatric Exam Psychiatric exam: Normal Mood Results - Vital Signs Recent Vital Signs: Last Vital Signs Temp 98.5 F 09/12/18 08:00 Pulse 85 09/12/18 08:00 Resp 20 09/12/18 08:00 BP 129/90 09/12/18 08:00 Pulse Ox 94 L 09/12/18 08:00 - Labs Result Diagrams: 09/12/18 07:35 09/12/18 07:35 Labs: Laboratory Results - last 24 hr 09/11/18 09/11/18 09/11/18 15:45 15:45 16:23 WBC 5.8 RBC 4.59 Hgb 15.9 Hct 46.5 MCV 101.3 H MCH 34.5 H MCHC 34.1 RDW 14.5 Plt Count 121 L MPV 10.4 Neut % (Auto) 76.7 H Lymph % (Auto) 15.3 L Morrill % (Auto) 7.0 Eos % (Auto) 0.7 Baso % (Auto) 0.3 Neut # (Auto) 4.4 Lymph # (Auto) 0.9 L Morrill # (Auto) 0.4 Eos # (Auto) 0.0 Baso # (Auto) 0.0 pO2 26 L VBG pH 7.42 VBG pCO2 43 VBG HCO3 25.9 VBG Total CO2 29.2 H VBG O2 Sat (Calc) 53.9 VBG Base Excess 2.9 H VBG Potassium 3.7 Glucose 92 Lactate 1.3 Sodium 132 131.0 L Potassium 4.1 Chloride 95 L 98.0 Carbon Dioxide 29 Anion Gap 12 BUN 19 Creatinine 1.2 Est GFR ( Amer) > 60 Est GFR (Non-Af Amer) > 60 Random Glucose 98 Calcium 8.6 Total Bilirubin 0.7 AST 131 H D ALT 63 Alkaline Phosphatase 54 Total Creatine Kinase 2220 H CK-MB (Mass) 2.54 Troponin I 0.0270 Total Protein 7.0 Albumin 3.8 Globulin 3.1 Albumin/Globulin Ratio 1.2 Venous Blood Potassium 3.7 09/12/18 09/12/18 07:35 07:35 WBC 4.8 RBC 4.19 L Hgb 14.6 Hct 42.5 MCV 101.6 H MCH 34.8 H MCHC 34.3 RDW 14.4 Plt Count 116 L MPV 10.5 Neut % (Auto) 70.2 Lymph % (Auto) 17.9 L Morrill % (Auto) 8.6 Eos % (Auto) 3.0 Baso % (Auto) 0.3 Neut # (Auto) 3.4 Lymph # (Auto) 0.9 L Morrill # (Auto) 0.4 Eos # (Auto) 0.1 Baso # (Auto) 0.0 pO2 VBG pH VBG pCO2 VBG HCO3 VBG Total CO2 VBG O2 Sat (Calc) VBG Base Excess VBG Potassium Glucose Lactate Sodium 138 Potassium 4.1 Chloride 104 Carbon Dioxide 27 Anion Gap 12 BUN 22 H Creatinine 1.0 Est GFR ( Amer) > 60 Est GFR (Non-Af Amer) > 60 Random Glucose 101 Calcium 8.1 L Total Bilirubin 0.4 AST 134 H ALT 79 H D Alkaline Phosphatase 49 Total Creatine Kinase 1206 H CK-MB (Mass) Troponin I Total Protein 5.8 L Albumin 3.1 L Globulin 2.8 Albumin/Globulin Ratio 1.1 Venous Blood Potassium Assessment & Plan (1) COPD exacerbation Status: Acute (2) HERI (obstructive sleep apnea) Status: Acute (3) Pneumonia Status: Acute (4) Rhabdomyolysis Status: Acute (5) CAD (coronary artery disease) Status: Acute (6) HTN (hypertension) Status: Acute (7) Hypercholesteremia Status: Acute - Assessment and Plan (Free Text) Assessment: 53 YO MALE WITH A HX MULT MED PROBS ADM WITH RLL PNA, PROB COPD EXAC, CONT EMPIRIC AB PENDING CULT. CONT NEB BD. MONITOR O2 SAT. CXR REVIEWED. PFT'S WHEN STABLE. SMOKING CESSATION., DVT PROPHYLAXIS. CPAP QHS. PSG OUTPT. DISCUSSED WITH STAFF AT LENGTH.
[2018-09-12] MEDS: Promethazine/Cod 6.25mg-10mg/5ml Syr UD PO PRN (18:18)
--- NOTE | 2018-09-12 19:29 | CP.PCM.PN ---
Subjective - Date & Time of Evaluation Date of Evaluation: 09/12/18 Time of Evaluation: 09:25 - Subjective Subjective: No nausea no vomiting No fever Blood pressure is 112/72 Watching TV sitting in the bed Objective - Vital Signs/Intake and Output Vital Signs (last 24 hours): Temp Pulse Resp BP Pulse Ox 98.8 F 94 H 20 112/72 94 L 09/12/18 16:00 09/12/18 16:00 09/12/18 16:00 09/12/18 16:00 09/12/18 16:00 - Medications Medications: Current Medications Albuterol/Ipratropium (Duoneb 3 Mg/0.5 Mg (3 Ml) Ud) 3 ml INH RQ6 [facility] Aripiprazole (Abilify) 20 mg PO DAILY [facility] Aspirin (Ecotrin) 81 mg PO DAILY [facility] Carvedilol (Coreg) 12.5 mg PO DAILY [facility] Clonazepam (Klonopin) 0.5 mg PO DAILY PRN PRN Reason: depression Enoxaparin Sodium (Lovenox) 40 mg SC DAILY [facility] Last Admin: 09/12/18 09:30 Dose: 40 mg Fluoxetine HCl (Prozac) 20 mg PO DAILY [facility] Azithromycin 500 mg/ Sodium (Chloride) 250 mls @ 250 mls/hr IVPB DAILY [facility]; Protocol Last Admin: 09/12/18 09:30 Dose: 250 mls/hr Ceftriaxone Sodium 1 gm/ (Sodium Chloride) 100 mls @ 100 mls/hr IVPB DAILY [facility]; Protocol Last Admin: 09/12/18 09:30 Dose: 100 mls/hr Sodium Chloride (Sodium Chloride 0.9%) 1,000 mls @ 75 mls/hr IV .[id number] [facility] Last Admin: 09/12/18 08:01 Dose: Not Given Losartan Potassium (Cozaar) 25 mg PO DAILY [facility] Pantoprazole Sodium (Protonix Ec Tab) 40 mg PO DAILY [facility] Last Admin: 09/12/18 09:30 Dose: 40 mg Promethazine HCl/Codeine (Phenergan/Codeine Oral Syrup) 10 ml PO Q8 PRN PRN Reason: Cough Last Admin: 09/12/18 18:18 Dose: 10 ml Rosuvastatin Calcium (Crestor) 10 mg PO HS [facility] Zolpidem Tartrate (Ambien) 5 mg PO HS PRN PRN Reason: Insomnia - Labs Labs: 04/28/19 07:35 09/12/18 07:35 - Constitutional Appears: Well - Head Exam Head Exam: ATRAUMATIC, NORMAL INSPECTION, NORMOCEPHALIC - Eye Exam Eye Exam: EOMI, Normal appearance, PERRL Pupil Exam: NORMAL ACCOMODATION, PERRL - ENT Exam ENT Exam: Mucous Membranes Moist, Normal Exam - Neck Exam Neck Exam: Full ROM, Normal Inspection. absent: Lymphadenopathy - Respiratory Exam Respiratory Exam: Decreased Breath Sounds - Cardiovascular Exam Cardiovascular Exam: REGULAR RHYTHM, +S1, +S2 - GI/Abdominal Exam GI & Abdominal Exam: Soft, Diminished Bowel Sounds - Rectal Exam Rectal Exam: Deferred - Neurological Exam Neurological Exam: Oriented x3 Assessment and Plan (1) COPD exacerbation Status: Acute (2) Failure of outpatient treatment Status: Acute (3) HERI (obstructive sleep apnea) Status: Acute (4) Pneumonia Status: Acute (5) Rhabdomyolysis Status: Acute (6) CAD (coronary artery disease) Status: Acute (7) Chest discomfort Status: Acute (8) Chest pain Status: Acute (9) HTN (hypertension) Status: Acute (10) Hypercholesteremia Status: Acute (11) Influenza-like illness Status: Acute (12) Ischemic cardiomyopathy Status: Acute (13) Leg swelling Status: Acute (14) Otitis externa Status: Acute (15) Otitis media Status: Acute (16) Shingles Status: Acute (17) URI (upper respiratory infection) Status: Acute (18) Viral syndrome Status: Acute - Assessment and Plan (Free Text) Plan: abilif ambien azithromycin ceftriaxone sodium coreg cozaar crestorduoneb ecotrin klonopin lovenox phengergan/codeine oral syruo protonix ec tab prozac sodium chloride moderate complexity of care plan discussed with patient Status post pulmonary consult Seen by Dr. Villalobos Continue IV antibiotic Sputum for Gram stain Blood cultures so far negative Status post pulmonary Continue IV antibiotic Smoking seizures and advised CPAP nightly Pulmonary toilet Mom monitor oxygen saturations Chest x-ray reviewed
[2018-09-12] MEDS: Albuterol-Ipratrop 3 mg / 0.5 (3 ml) UD INH SCH (19:50)
[2018-09-13] MEDS: Albuterol-Ipratrop 3 mg / 0.5 (3 ml) UD INH SCH ×4 (02:11→19:53)
[2018-09-13] MEDS: Promethazine/Cod 6.25mg-10mg/5ml Syr UD PO PRN ×2 (02:19→12:16)
[2018-09-13] MEDS: Pantoprazole 40 mg EC Tab PO SCH (10:14)
[2018-09-13] MEDS: Enoxaparin 40 mg Syringe SC SCH (10:16)
[2018-09-13] MEDS: Sodium Chloride 0.9% 1,000 ML IV SCH ×2 (10:43→23:20)
[2018-09-13] MEDS: Azithromycin 500 MG in Sodium Chloride 0.9% 250 ML IVPB SCH (10:47)
[2018-09-13 13:24] LABS: CK-MB 3.57 ng/mL (0.0-3.38)
[2018-09-13] MEDS ORDERED: Aluminum Hydroxide/Magnesium Hydroxide Susp (30 mL) PO ONE (14:00)
--- NOTE | 2018-09-13 18:43 | CP.PCM.PN ---
Subjective - Date & Time of Evaluation Date of Evaluation: 09/13/18 - Subjective Subjective: patient examined today coough present mild sob not mfeeling much ebtter no nausea no vomiting no diarrhea no dizziness no fever no sob Objective - Vital Signs/Intake and Output Vital Signs (last 24 hours): Temp Pulse Resp BP Pulse Ox 98.1 F 87 20 110/77 100 09/13/18 16:36 09/13/18 16:36 09/13/18 16:36 09/13/18 16:36 09/13/18 16:36 Intake and Output: 09/13/18 09/13/18 06:59 18:59 Intake Total 1740 Output Total 400 Balance 1340 - Medications Medications: Current Medications Albuterol/Ipratropium (Duoneb 3 Mg/0.5 Mg (3 Ml) Ud) 3 ml INH RQ6 [facility] Last Admin: 09/13/18 14:48 Dose: Not Given Aripiprazole (Abilify) 20 mg PO DAILY [facility] Last Admin: 09/13/18 10:53 Dose: 20 mg Aspirin (Ecotrin) 81 mg PO DAILY [facility] Last Admin: 09/13/18 10:14 Dose: 81 mg Carvedilol (Coreg) 12.5 mg PO DAILY [facility] Last Admin: 09/13/18 10:42 Dose: 12.5 mg Clonazepam (Klonopin) 0.5 mg PO DAILY PRN PRN Reason: depression Last Admin: 09/13/18 13:04 Dose: 0.5 mg Enoxaparin Sodium (Lovenox) 40 mg SC DAILY [facility] Last Admin: 09/13/18 10:16 Dose: 40 mg Fluoxetine HCl (Prozac) 20 mg PO DAILY [facility] Last Admin: 09/13/18 10:53 Dose: 20 mg Azithromycin 500 mg/ Sodium (Chloride) 250 mls @ 250 mls/hr IVPB DAILY [facility]; Protocol Last Admin: 09/13/18 10:47 Dose: 250 mls/hr Ceftriaxone Sodium 1 gm/ (Sodium Chloride) 100 mls @ 100 mls/hr IVPB DAILY [facility]; Protocol Last Admin: 09/13/18 10:16 Dose: 100 mls/hr Sodium Chloride (Sodium Chloride 0.9%) 1,000 mls @ 75 mls/hr IV .[id number] [facility] Last Admin: 09/13/18 10:43 Dose: 75 mls/hr Losartan Potassium (Cozaar) 25 mg PO DAILY [facility] Last Admin: 09/13/18 10:16 Dose: 25 mg Pantoprazole Sodium (Protonix Ec Tab) 40 mg PO DAILY [facility] Last Admin: 09/13/18 10:14 Dose: 40 mg Promethazine HCl/Codeine (Phenergan/Codeine Oral Syrup) 10 ml PO Q8 PRN PRN Reason: Cough Last Admin: 09/13/18 12:16 Dose: 10 ml Rosuvastatin Calcium (Crestor) 10 mg PO HS [facility] Last Admin: 09/12/18 22:17 Dose: 10 mg Zolpidem Tartrate (Ambien) 5 mg PO HS PRN PRN Reason: Insomnia Last Admin: 09/13/18 02:19 Dose: 5 mg - Labs Labs: 09/12/18 07:35 09/12/18 07:35 - Constitutional Appears: Well - Head Exam Head Exam: ATRAUMATIC, NORMAL INSPECTION, NORMOCEPHALIC - Eye Exam Eye Exam: EOMI, Normal appearance, PERRL Pupil Exam: NORMAL ACCOMODATION, PERRL - ENT Exam ENT Exam: Mucous Membranes Moist, Normal Exam - Neck Exam Neck Exam: Full ROM, Normal Inspection. absent: Lymphadenopathy - Respiratory Exam Respiratory Exam: Decreased Breath Sounds - Cardiovascular Exam Cardiovascular Exam: REGULAR RHYTHM, +S1, +S2 - GI/Abdominal Exam GI & Abdominal Exam: Soft, Diminished Bowel Sounds - Rectal Exam Rectal Exam: Deferred - Neurological Exam Neurological Exam: Oriented x3 Assessment and Plan (1) COPD exacerbation Status: Acute (2) Failure of outpatient treatment Status: Acute (3) HERI (obstructive sleep apnea) Status: Acute (4) Pneumonia Status: Acute (5) Rhabdomyolysis Status: Acute (6) CAD (coronary artery disease) Status: Acute (7) Chest discomfort Status: Acute (8) Chest pain Status: Acute (9) HTN (hypertension) Status: Acute (10) Hypercholesteremia Status: Acute (11) Influenza-like illness Status: Acute (12) Ischemic cardiomyopathy Status: Acute (13) Leg swelling Status: Acute (14) Otitis externa Status: Acute (15) Otitis media Status: Acute (16) Shingles Status: Acute (17) URI (upper respiratory infection) Status: Acute (18) Viral syndrome Status: Acute
--- NOTE | 2018-09-13 20:09 | CP.PCM.PN ---
Subjective - Date & Time of Evaluation Date of Evaluation: 09/13/18 Time of Evaluation: 20:06 - Subjective Subjective: PT ALERT, +COUGH., +CP THIS AM, BETTER NOW. ROS; OTHERWISE NEG Objective - Vital Signs/Intake and Output Vital Signs (last 24 hours): Temp Pulse Resp BP Pulse Ox 98.1 F 87 20 110/77 100 09/13/18 16:36 09/13/18 16:36 09/13/18 16:36 09/13/18 16:36 09/13/18 16:36 - Medications Medications: Current Medications Albuterol/Ipratropium (Duoneb 3 Mg/0.5 Mg (3 Ml) Ud) 3 ml INH RQ6 [facility] Last Admin: 09/13/18 19:53 Dose: 3 ml Aripiprazole (Abilify) 20 mg PO DAILY [facility] Last Admin: 09/13/18 10:53 Dose: 20 mg Aspirin (Ecotrin) 81 mg PO DAILY [facility] Last Admin: 09/13/18 10:14 Dose: 81 mg Carvedilol (Coreg) 12.5 mg PO DAILY [facility] Last Admin: 09/13/18 10:42 Dose: 12.5 mg Clonazepam (Klonopin) 0.5 mg PO DAILY PRN PRN Reason: depression Last Admin: 09/13/18 13:04 Dose: 0.5 mg Enoxaparin Sodium (Lovenox) 40 mg SC DAILY [facility] Last Admin: 09/13/18 10:16 Dose: 40 mg Fluoxetine HCl (Prozac) 20 mg PO DAILY [facility] Last Admin: 09/13/18 10:53 Dose: 20 mg Azithromycin 500 mg/ Sodium (Chloride) 250 mls @ 250 mls/hr IVPB DAILY [facility]; Protocol Last Admin: 09/13/18 10:47 Dose: 250 mls/hr Ceftriaxone Sodium 1 gm/ (Sodium Chloride) 100 mls @ 100 mls/hr IVPB DAILY [facility]; Protocol Last Admin: 09/13/18 10:16 Dose: 100 mls/hr Sodium Chloride (Sodium Chloride 0.9%) 1,000 mls @ 75 mls/hr IV .[id number] [facility] Last Admin: 09/13/18 10:43 Dose: 75 mls/hr Losartan Potassium (Cozaar) 25 mg PO DAILY [facility] Last Admin: 09/13/18 10:16 Dose: 25 mg Pantoprazole Sodium (Protonix Ec Tab) 40 mg PO DAILY [facility] Last Admin: 09/13/18 10:14 Dose: 40 mg Promethazine HCl/Codeine (Phenergan/Codeine Oral Syrup) 10 ml PO Q8 PRN PRN Reason: Cough Last Admin: 09/13/18 12:16 Dose: 10 ml Rosuvastatin Calcium (Crestor) 10 mg PO HS [facility] Last Admin: 09/12/18 22:17 Dose: 10 mg Zolpidem Tartrate (Ambien) 5 mg PO HS PRN PRN Reason: Insomnia Last Admin: 09/13/18 02:19 Dose: 5 mg - Labs Labs: 09/12/18 07:35 09/12/18 07:35 - Constitutional Appears: No Acute Distress - Head Exam Head Exam: ATRAUMATIC, NORMOCEPHALIC - Eye Exam Eye Exam: EOMI, Normal appearance - ENT Exam ENT Exam: Mucous Membranes Moist - Respiratory Exam Respiratory Exam: Decreased Breath Sounds, Prolonged Expiratory Phase, Rhonchi. absent: Accessory Muscle Use, Respiratory Distress - Cardiovascular Exam Cardiovascular Exam: RRR, +S1, +S2 - GI/Abdominal Exam GI & Abdominal Exam: Soft. absent: Tenderness Additional comments: OBESE - Rectal Exam Rectal Exam: Deferred - Extremities Exam Extremities Exam: absent: Calf Tenderness, Pedal Edema - Back Exam Back Exam: absent: CVA tenderness (L), CVA tenderness (R) - Neurological Exam Neurological Exam: Alert, Awake, CN II-XII Intact, Oriented x3 - Psychiatric Exam Psychiatric exam: Normal Mood - Skin Skin Exam: absent: Rash Assessment and Plan (1) COPD exacerbation Status: Acute (2) HERI (obstructive sleep apnea) Status: Acute (3) Pneumonia Status: Acute (4) Rhabdomyolysis Status: Acute (5) CAD (coronary artery disease) Status: Acute (6) HTN (hypertension) Status: Acute (7) Hypercholesteremia Status: Acute - Assessment and Plan (Free Text) Assessment: RESP STATUS NO SIG CHANGE. CONT NEB BD., MONITOR O2 SAT. AFEBRILE ON AB. CXR REVIEWED . CARDIO EVAL IN PROGRESS. CONT CPAP QHS. DISCUSSED WITH STAFF AND RT AT LENGTH.
[2018-09-14] MEDS: Promethazine/Cod 6.25mg-10mg/5ml Syr UD PO PRN ×3 (01:50→22:32)
[2018-09-14] MEDS: Albuterol-Ipratrop 3 mg / 0.5 (3 ml) UD INH SCH ×3 (02:45→20:06)
[2018-09-14] MEDS: Sodium Chloride 0.9% 1,000 ML IV SCH ×2 (03:00→12:55)
--- NOTE | 2018-09-14 08:01 | CP.PCM.CON ---
History of Present Illness - History of Present Illness History of Present Illness: I was asked to see patient by Dr Christofer Mohan Patient seen 09/14/18 7:30 am Patient is a 53 year old male with HTn, hypercholesterolemia, CAD cardiomyopathy s/p AICD who presents with pneumonia. He has had cough for the last few days, and is now on antibiotic therapy. He developed chest pain yesterday. Review of Systems - Constitutional Constitutional: absent: As Per HPI, Anorexia, Chills, Daytime Sleepiness, Excessive Sweating, Fatigue, Fever, Frequent Falls, Headache, Increased Appetite, Lethargy, Malaise, Night Sweats, Snoring, Sleep Apnea, Weight Gain, Weight Loss, Weakness, Other - EENT Eyes: absent: As Per HPI, Blind Spots, Blurred Vision, Change in Vision, Decreased Night Vision, Diplopia, Discharge, Dry Eye, Exophthalmos, Floaters, Irritation, Itchy Eyes, Loss of Peripheral Vision, Pain, Photophobia, Requires Corrective Lenses, Sees Flashes, Spots in Vision, Tunnel Vision, Other Visual Disturbances, Loss of Vision, Other Ears: absent: As Per HPI, Decreased Hearing, Ear Discharge, Ear Pain, Tinnitus, Abnormal Hearing, Disequilibrium, Dizziness, Other - Cardiovascular Cardiovascular: Chest Pain - Respiratory Respiratory: absent: As Per HPI, Cough, Dyspnea, Hemoptysis, Dyspnea on Exertion, Wheezing, Snoring, Stridor, Pain on Inspiration, Chest Congestion, Excessive Mucous Production, Change in Mucous Color, Pain with Coughing, Other - Gastrointestinal Gastrointestinal: absent: As Per HPI, Abdominal Pain, Belching, Bloating, Change in Bowel Habits, Change in Stool Character, Coffee Ground Emesis, Constipation, Cramping, Diarrhea, Dyspepsia, Dysphagia, Early Satiety, Excessive Flatus, Fecal Incontinence, Heartburn, Hematemesis, Hematochezia, Loose Stools, Melena, Nausea, Odynophagia, Temesmus, Vomiting, Other - Genitourinary Genitourinary: absent: As Per HPI, Change in Urinary Stream, Difficulty Urinating, Dysuria, Flank Pain, Hematuria, Pyuria, Nocturia, Urinary Incontinence, Urinary Frequency, Urinary Hesitance, Urinary Urgency, Voiding Freq/Small Amts, Freq UTI, Hx Renal/Bladder Calculi, Hx /Renal Surgery, B ladder Distension, Other - Musculoskeletal Musculoskeletal: absent: As Per HPI, Abnormal Gait, Arthralgias, Atrophy, Back Pain, Deformity, Joint Swelling, Limited Range of Motion, Loss of Height, Muscle Cramps, Muscle Weakness, Myalgias, Neck Pain, Numbness, Radiating Pain into Limb, Stiffness, Tingling, Other - Integumentary Integumentary: absent: As Per HPI, Acne, Alopecia, Bleeding Lesions, Change in Hair, Change in Nails, Change in Pigmentation, Changing Lesions, Dry Skin, Erythema, Furuncle, Hirsutism, Lesions, New Lesions, Non-Healing Lesions, Photosensitivity, Pruritus, Rash, Skin Pain, Skin Ulcer, Sores, Striae, Swelling, Unusual Bruising, Wounds, Jaundice, Other - Neurological Neurological: absent: As Per HPI, Abnormal Gait, Abnormal Hearing, Abnormal Movements, Abnormal Speech, Behavioral Changes, Burning Sensations, Confusion, Convulsions, Disequilibrium, Dizziness, Numbness, Focal Weakness, Frequent Falls, Headaches, Lack of Coordination, Loss of Vision, Memory Loss, Paresthesias, Radicular Pain, Restless Legs, Sensory Deficit, Syncope, Tingling, Tremor, Vertigo, Weakness, Other Visual Disturbances, Other - Psychiatric Psychiatric: absent: As Per HPI, Abnormal Sleep Pattern, Anhedonia, Anxiety, Auditory Hallucinations, Behavioral Changes, Change in Appetite, Change in Libido, Confusion, Depression, Difficulty Concentrating, Hallucinations, Homicidal Ideation, Hopelessness, Irritability, Memory Loss, Mood Swings, Panic Attacks, Paranoia, Suicidal Ideation, Visual Hallucinations, Tactile Hallucinations, Other - Endocrine Endocrine: absent: As Per HPI, Change in Body Appearance, Change in Libido, Cold Intolorance, Deepening of Voice, Excessive Sweating, Fatigue, Flushing, Heat Intolorance, Increase in Ring/Shoe/Hat Size, Palpitations, Polydipsia, Polyphagia, Polyuria, Other - Hematologic/Lymphatic Hematologic: absent: As Per HPI, Easy Bleeding, Easy Bruising, Lymphadenopathy, Other Past Patient History - Infectious Disease Hx of Infectious Diseases: None - Past Medical History & Family History Past Medical History?: Yes - Past Social History Smoking Status: Heavy Smoker > 10 Cigarettes Daily - CARDIAC Hx Hypercholesterolemia: Yes Hx Hypertension: Yes Hx Pacemaker: Yes - PULMONARY Hx Respiratory Disorders: No - NEUROLOGICAL Hx Neurological Disorder: No - HEENT Hx HEENT Problems: No - RENAL Hx Chronic Kidney Disease: No - ENDOCRINE/METABOLIC Hx Endocrine Disorders: No - HEMATOLOGICAL/ONCOLOGICAL Hx Blood Disorders: No - INTEGUMENTARY Hx Dermatological Problems: No - MUSCULOSKELETAL/RHEUMATOLOGICAL Hx Musculoskeletal Disorders: No Hx Falls: No - GASTROINTESTINAL Hx Gastrointestinal Disorders: No - GENITOURINARY/GYNECOLOGICAL Hx Genitourinary Disorders: No - PSYCHIATRIC Hx Anxiety: Yes Hx Depression: Yes Hx Substance Use: No - SURGICAL HISTORY Hx Coronary Stent: Yes - ANESTHESIA Hx Anesthesia: Yes Hx Anesthesia Reactions: No Hx Malignant Hyperthermia: No Meds Allergies/Adverse Reactions: Allergies Allergy/AdvReac Type Severity Reaction Status Date / Time No Known Allergies Allergy Verified 09/11/18 15:11 - Medications Medications: Current Medications Albuterol/Ipratropium (Duoneb 3 Mg/0.5 Mg (3 Ml) Ud) 3 ml INH RQ6 [facility] Last Admin: 09/14/18 07:36 Dose: 3 ml Aripiprazole (Abilify) 20 mg PO DAILY [facility] Last Admin: 09/13/18 10:53 Dose: 20 mg Aspirin (Ecotrin) 81 mg PO DAILY [facility] Last Admin: 09/13/18 10:14 Dose: 81 mg Carvedilol (Coreg) 12.5 mg PO DAILY [facility] Last Admin: 09/13/18 10:42 Dose: 12.5 mg Clonazepam (Klonopin) 0.5 mg PO DAILY PRN PRN Reason: depression Last Admin: 09/13/18 13:04 Dose: 0.5 mg Enoxaparin Sodium (Lovenox) 40 mg SC DAILY [facility] Last Admin: 09/13/18 10:16 Dose: 40 mg Fluoxetine HCl (Prozac) 20 mg PO DAILY [facility] Last Admin: 09/13/18 10:53 Dose: 20 mg Azithromycin 500 mg/ Sodium (Chloride) 250 mls @ 250 mls/hr IVPB DAILY [facility]; Protocol Last Admin: 09/13/18 10:47 Dose: 250 mls/hr Ceftriaxone Sodium 1 gm/ (Sodium Chloride) 100 mls @ 100 mls/hr IVPB DAILY [facility]; Protocol Last Admin: 09/13/18 10:16 Dose: 100 mls/hr Sodium Chloride (Sodium Chloride 0.9%) 1,000 mls @ 75 mls/hr IV .[id number] [facility] Last Admin: 09/14/18 03:00 Dose: 75 mls/hr Losartan Potassium (Cozaar) 25 mg PO DAILY [facility] Last Admin: 09/13/18 10:16 Dose: 25 mg Pantoprazole Sodium (Protonix Ec Tab) 40 mg PO DAILY [facility] Last Admin: 09/13/18 10:14 Dose: 40 mg Promethazine HCl/Codeine (Phenergan/Codeine Oral Syrup) 10 ml PO Q8 PRN PRN Reason: Cough Last Admin: 09/14/18 01:50 Dose: 10 ml Rosuvastatin Calcium (Crestor) 10 mg PO HS [facility] Last Admin: 09/12/18 22:17 Dose: 10 mg Zolpidem Tartrate (Ambien) 5 mg PO HS PRN PRN Reason: Insomnia Last Admin: 09/13/18 02:19 Dose: 5 mg Physical Exam - Constitutional Appears: Non-toxic - Head Exam Head Exam: NORMAL INSPECTION - Eye Exam Eye Exam: Normal appearance - ENT Exam ENT Exam: Mucous Membranes Moist - Neck Exam Neck exam: Positive for: Full Rom - Respiratory Exam Respiratory Exam: NORMAL BREATHING PATTERN - Cardiovascular Exam Cardiovascular Exam: REGULAR RHYTHM - GI/Abdominal Exam GI & Abdominal Exam: Normal Bowel Sounds - Rectal Exam Rectal Exam: Deferred - Extremities Exam Extremities exam: Negative for: pedal edema - Back Exam Back exam: NORMAL INSPECTION - Neurological Exam Neurological exam: Alert, Oriented x3 - Psychiatric Exam Psychiatric exam: Normal Affect - Skin Skin Exam: Normal Color Results - Vital Signs Recent Vital Signs: Last Vital Signs Temp 97.9 F 09/14/18 00:00 Pulse 94 H 09/14/18 06:00 Resp 20 09/14/18 06:00 BP 142/88 09/14/18 06:00 Pulse Ox 97 09/14/18 06:00 - Labs Result Diagrams: 09/12/18 07:35 09/12/18 07:35 Labs: Laboratory Results - last 24 hr 09/13/18 09/13/18 12:42 12:56 POC Glucose (mg/dL) 120 H Total Creatine Kinase 756 H CK-MB (Mass) 3.57 H Troponin I < 0.0120 - EKG Data EKG Interpreted by: Myself EKG shows normal: Sinus rhythm Assessment & Plan (1) CAD (coronary artery disease) Assessment and Plan: patient has history of coronary stenting. Symptoms seem atypical for angina. recommend continued medical therapy, antiplatelet therapy Status: Acute (2) Ischemic cardiomyopathy Assessment and Plan: s/p AICD. no evidence of heart failure Status: Acute (3) HTN (hypertension) Assessment and Plan: blood pressure control Status: Acute (4) Hypercholesteremia Assessment and Plan: statin therapy, goal LDL<70 Status: Acute (5) Pneumonia Assessment and Plan: antibiotic therapy Status: Acute
[2018-09-14 08:06] LABS: ALB/GLOB RATIO 1.2 (1.0-2.1); ALBUMIN 3.4 g/dL (3.5-5.0); ALT/SGPT 121 U/L (21-72); AST/SGOT 113 U/L (17-59); BLOOD UREA NITROGEN 13 mg/dL (9-20); CALCIUM 8.3 mg/dl (8.6-10.4); GFR NON-AFRICAN AMERICAN > 60
--- NOTE | 2018-09-14 09:34 | CP.PCM.PN ---
Subjective - Date & Time of Evaluation Date of Evaluation: 09/14/18 Time of Evaluation: 09:29 - Subjective Subjective: PT ALERT, +MILD HEMOPTYSIS THIS AM., +CP LAST NIGHT AND SOB. ROS; OTHERWISE NEG. Objective - Vital Signs/Intake and Output Vital Signs (last 24 hours): Temp Pulse Resp BP Pulse Ox 97.9 F 96 H 20 156/90 H 96 09/14/18 08:18 09/14/18 08:18 09/14/18 08:18 09/14/18 08:43 09/14/18 08:18 Intake and Output: 09/14/18 09/14/18 06:59 18:59 Intake Total 1750 Balance 1750 - Medications Medications: Current Medications Albuterol/Ipratropium (Duoneb 3 Mg/0.5 Mg (3 Ml) Ud) 3 ml INH RQ6 [facility] Last Admin: 09/14/18 07:36 Dose: 3 ml Aripiprazole (Abilify) 20 mg PO DAILY [facility] Last Admin: 09/13/18 10:53 Dose: 20 mg Aspirin (Ecotrin) 81 mg PO DAILY [facility] Last Admin: 09/14/18 08:43 Dose: 81 mg Carvedilol (Coreg) 12.5 mg PO DAILY [facility] Last Admin: 09/14/18 08:43 Dose: 12.5 mg Clonazepam (Klonopin) 0.5 mg PO DAILY PRN PRN Reason: depression Last Admin: 09/13/18 13:04 Dose: 0.5 mg Enoxaparin Sodium (Lovenox) 40 mg SC DAILY [facility] Last Admin: 09/13/18 10:16 Dose: 40 mg Fluoxetine HCl (Prozac) 20 mg PO DAILY [facility] Last Admin: 09/13/18 10:53 Dose: 20 mg Azithromycin 500 mg/ Sodium (Chloride) 250 mls @ 250 mls/hr IVPB DAILY [facility]; Protocol Last Admin: 09/13/18 10:47 Dose: 250 mls/hr Ceftriaxone Sodium 1 gm/ (Sodium Chloride) 100 mls @ 100 mls/hr IVPB DAILY [facility]; Protocol Last Admin: 09/13/18 10:16 Dose: 100 mls/hr Sodium Chloride (Sodium Chloride 0.9%) 1,000 mls @ 75 mls/hr IV .[id number] [facility] Last Admin: 09/14/18 03:00 Dose: 75 mls/hr Losartan Potassium (Cozaar) 25 mg PO DAILY [facility] Last Admin: 09/14/18 08:43 Dose: 25 mg Pantoprazole Sodium (Protonix Ec Tab) 40 mg PO DAILY [facility] Last Admin: 09/13/18 10:14 Dose: 40 mg Promethazine HCl/Codeine (Phenergan/Codeine Oral Syrup) 10 ml PO Q8 PRN PRN Reason: Cough Last Admin: 09/14/18 01:50 Dose: 10 ml Rosuvastatin Calcium (Crestor) 10 mg PO HS [facility] Last Admin: 09/12/18 22:17 Dose: 10 mg Zolpidem Tartrate (Ambien) 5 mg PO HS PRN PRN Reason: Insomnia Last Admin: 09/13/18 02:19 Dose: 5 mg - Labs Labs: 09/12/18 07:35 09/14/18 07:45 - Constitutional Appears: No Acute Distress - Head Exam Head Exam: ATRAUMATIC, NORMOCEPHALIC - Eye Exam Eye Exam: EOMI, Normal appearance - ENT Exam ENT Exam: Mucous Membranes Moist - Neck Exam Neck Exam: Normal Inspection. absent: Tenderness - Respiratory Exam Respiratory Exam: Decreased Breath Sounds, Rhonchi - Cardiovascular Exam Cardiovascular Exam: RRR, +S1, +S2 - GI/Abdominal Exam GI & Abdominal Exam: Soft. absent: Tenderness Additional comments: OBESE - Rectal Exam Rectal Exam: Deferred - Extremities Exam Extremities Exam: absent: Calf Tenderness, Pedal Edema - Back Exam Back Exam: absent: CVA tenderness (L), CVA tenderness (R) - Neurological Exam Neurological Exam: Alert, Awake, CN II-XII Intact, Oriented x3 - Psychiatric Exam Psychiatric exam: Normal Mood - Skin Skin Exam: absent: Rash Assessment and Plan (1) COPD exacerbation Status: Acute (2) HERI (obstructive sleep apnea) Status: Acute (3) Pneumonia Status: Acute (4) Rhabdomyolysis Status: Acute (5) CAD (coronary artery disease) Status: Acute (6) HTN (hypertension) Status: Acute (7) Hypercholesteremia Status: Acute - Assessment and Plan (Free Text) Assessment: RESP STATUS NO SIG CHANGE., MILD HEMOPTYSIS TODAY WITH CP LAST NIGHT AND SOB., CHECK CTA, R/O PE. CARDIO EVAL NOTED. CONT EMPIRIC AB. CXR REVIEWED. MONITOR O2 SAT. NEB BD., PULM TOILET. DISCUSSED WITH STAFF AT LENGTH.
[2018-09-14] MEDS: Pantoprazole 40 mg EC Tab PO SCH (09:36)
[2018-09-14] MEDS: Enoxaparin 40 mg Syringe SC SCH (09:36)
--- NOTE | 2018-09-14 10:15 | CP.PCM.PN ---
Subjective - Date & Time of Evaluation Date of Evaluation: 09/14/18 - Subjective Subjective: patient examined today no nausea+MILD HEMOPTYSIS THIS AM., +CP LAST NIGHT AND SOB. no vomitting no fever copough present Objective - Vital Signs/Intake and Output Vital Signs (last 24 hours): Temp Pulse Resp BP Pulse Ox 97.9 F 96 H 20 156/90 H 96 09/14/18 08:18 09/14/18 08:18 09/14/18 08:18 09/14/18 08:43 09/14/18 08:18 Intake and Output: 09/14/18 09/14/18 06:59 18:59 Intake Total 1750 Balance 1750 - Medications Medications: Current Medications Albuterol/Ipratropium (Duoneb 3 Mg/0.5 Mg (3 Ml) Ud) 3 ml INH RQ6 [facility] Last Admin: 09/14/18 07:36 Dose: 3 ml Aripiprazole (Abilify) 20 mg PO DAILY [facility] Last Admin: 09/14/18 09:36 Dose: 20 mg Aspirin (Ecotrin) 81 mg PO DAILY [facility] Last Admin: 09/14/18 09:38 Dose: Not Given Carvedilol (Coreg) 12.5 mg PO DAILY [facility] Last Admin: 09/14/18 08:43 Dose: 12.5 mg Clonazepam (Klonopin) 0.5 mg PO DAILY PRN PRN Reason: depression Last Admin: 09/13/18 13:04 Dose: 0.5 mg Enoxaparin Sodium (Lovenox) 40 mg SC DAILY [facility] Last Admin: 09/14/18 09:36 Dose: 40 mg Fluoxetine HCl (Prozac) 20 mg PO DAILY [facility] Last Admin: 09/14/18 09:36 Dose: 20 mg Azithromycin 500 mg/ Sodium (Chloride) 250 mls @ 250 mls/hr IVPB DAILY [facility]; Protocol Last Admin: 09/13/18 10:47 Dose: 250 mls/hr Ceftriaxone Sodium 1 gm/ (Sodium Chloride) 100 mls @ 100 mls/hr IVPB DAILY [facility]; Protocol Last Admin: 09/14/18 09:38 Dose: 100 mls/hr Sodium Chloride (Sodium Chloride 0.9%) 1,000 mls @ 75 mls/hr IV .[id number] [facility] Last Admin: 09/14/18 03:00 Dose: 75 mls/hr Losartan Potassium (Cozaar) 25 mg PO DAILY [facility] Last Admin: 09/14/18 09:38 Dose: Not Given Pantoprazole Sodium (Protonix Ec Tab) 40 mg PO DAILY [facility] Last Admin: 09/14/18 09:36 Dose: 40 mg Promethazine HCl/Codeine (Phenergan/Codeine Oral Syrup) 10 ml PO Q8 PRN PRN Reason: Cough Last Admin: 09/14/18 09:42 Dose: 10 ml Rosuvastatin Calcium (Crestor) 10 mg PO HS [facility] Last Admin: 09/12/18 22:17 Dose: 10 mg Zolpidem Tartrate (Ambien) 5 mg PO HS PRN PRN Reason: Insomnia Last Admin: 09/13/18 02:19 Dose: 5 mg - Labs Labs: 09/12/18 07:35 09/14/18 07:45 - Constitutional Appears: Well - Head Exam Head Exam: ATRAUMATIC, NORMAL INSPECTION, NORMOCEPHALIC - Eye Exam Eye Exam: EOMI, Normal appearance, PERRL Pupil Exam: NORMAL ACCOMODATION, PERRL - ENT Exam ENT Exam: Mucous Membranes Moist, Normal Exam - Neck Exam Neck Exam: Full ROM, Normal Inspection. absent: Lymphadenopathy - Respiratory Exam Respiratory Exam: Decreased Breath Sounds - Cardiovascular Exam Cardiovascular Exam: REGULAR RHYTHM, +S1, +S2 - GI/Abdominal Exam GI & Abdominal Exam: Soft, Diminished Bowel Sounds - Rectal Exam Rectal Exam: Deferred - Neurological Exam Neurological Exam: Oriented x3 Assessment and Plan (1) COPD exacerbation Status: Acute (2) Failure of outpatient treatment Status: Acute (3) EHRI (obstructive sleep apnea) Status: Acute (4) Pneumonia Status: Acute (5) Rhabdomyolysis Status: Acute (6) CAD (coronary artery disease) Status: Acute (7) Chest discomfort Status: Acute (8) Chest pain Status: Acute (9) HTN (hypertension) Status: Acute (10) Hypercholesteremia Status: Acute (11) Influenza-like illness Status: Acute (12) Ischemic cardiomyopathy Status: Acute (13) Leg swelling Status: Acute (14) Otitis externa Status: Acute (15) Otitis media Status: Acute (16) Shingles Status: Acute (17) URI (upper respiratory infection) Status: Acute (18) Viral syndrome Status: Acute - Assessment and Plan (Free Text) Plan: abilif ambien azithromycin ceftriaxone sodium coreg cozaar crestorduoneb ecotrin klonopin lovenox phengergan/codeine oral syrup protonix ec tab prozac sodium chloride moderate complexity of care plan discussed with patient
[2018-09-14] MEDS: Azithromycin 500 MG in Sodium Chloride 0.9% 250 ML IVPB SCH (10:17)
[2018-09-14] MEDS ORDERED: Iodixanol 320 MG/ML 100 ML BOTTLE IV ONE (10:40)
--- NOTE | 2018-09-14 11:12 | CT ---
Date of service: 09/14/2018 CTA chest PE protocol Indication: Technique: Contiguous axial images were obtained through the chest with intravenous contrast enhancement. Sagittal and coronal reconstructions were generated and reviewed. This CT exam was performed using 1 or more of the following dose reduction techniques: Automated exposure control, adjustment of the MAA and/or kV according to patient size, and/or use of iterative reconstruction technique. IV contrast: Radiation dose (DLP): 672.34 MGy-cm. Comparison: Chest x-ray performed 09/11/18 Findings: Visualized portions of the inferior thyroid gland appear unremarkable. The mediastinal and hilar vascular structures appear within normal limits. Left-sided AICD. Cardiomegaly with reflux of contrast identified into the hepatic veins may be seen in the setting of elevated right heart pressures. Prevascular and mediastinal adenopathy measuring up to approximately 1.8 cm in short axis (right paratracheal). Dense coronary artery calcifications. No large central or segmental pulmonary embolus evident. Patchy, nodular, and ground-glass airspace opacities throughout the right hemithorax with mid to lower lobe predominance. No pleural effusion. No pneumothorax. Limited visualized portions of the upper abdomen appear grossly unremarkable. No acute osseous abnormality is detected. Impression: Left-sided AICD. Cardiomegaly with reflux of contrast identified into the hepatic veins may be seen in the setting of elevated right heart pressures. Prevascular and mediastinal adenopathy measuring up to approximately 1.8 cm in short axis (right paratracheal). Dense coronary artery calcifications. No large central or segmental pulmonary embolus evident. Patchy, nodular, and ground-glass airspace opacities throughout the right hemithorax with mid to lower lobe predominance. Appearance consistent with pneumonia. Correlate clinically. Recommend chest CT follow-up upon completion of therapy to demonstrate resolution of nodular pattern.
--- NOTE | 2018-09-14 12:41 | CARD ---
APPROVED REPORT Date of service: 09/13/2018 EKG Measurement Heart [id number] QT0T0 QTc0 <Conclusion> No QRS complexes found, no ECG analysis possible
[2018-09-14] MEDS ORDERED: Aluminum Hydroxide/Magnesium Hydroxide Susp (30 mL) PO ONE (20:05)
[2018-09-15] MEDS: Albuterol-Ipratrop 3 mg / 0.5 (3 ml) UD INH SCH ×5 (01:37→20:40)
[2018-09-15] MEDS: Sodium Chloride 0.9% 1,000 ML IV SCH ×2 (02:00→05:48)
[2018-09-15] MEDS: Promethazine/Cod 6.25mg-10mg/5ml Syr UD PO PRN (06:08)
[2018-09-15 07:44] LABS: BASO # 0.1 K/uL (0.0-0.2); BASO % 0.8 % (0.0-2.0); EOS # 0.2 K/uL (0.0-0.7); EOS % 2.4 % (0.0-4.0); HEMOGLOBIN 14.5 g/dL (12.0-18.0); LYMPH # 1.5 K/uL (1.0-4.3); LYMPH % 23.9 % (20.0-40.0); MEAN CORPUSCULAR HEMOGLOBIN 35.1 pg (27.0-31.0); MEAN CORPUSCULAR HGB CONC 34.4 g/dL (33.0-37.0); MEAN PLATELET VOLUME 10.9 fL (7.2-11.7); MONO # 0.7 K/uL (0.0-0.8); MONO % 11.2 % (0.0-10.0); NEUT # 3.9 K/uL (1.8-7.0); NEUT % 61.7 % (50.0-75.0); NRBC % 0.1 % (0.0-2.0); RBC 4.13 Mil/uL (4.40-5.90); RED CELL DISTRIBUTION WIDTH 14.2 % (11.5-14.5); WHITE BLOOD COUNT 6.4 K/uL (4.8-10.8)
[2018-09-15 08:13] LABS: ALB/GLOB RATIO 1.1 (1.0-2.1); ALBUMIN 3.3 g/dL (3.5-5.0); ALT/SGPT 180 U/L (21-72); AST/SGOT 139 U/L (17-59); BLOOD UREA NITROGEN 11 mg/dL (9-20); CALCIUM 8.5 mg/dl (8.6-10.4); GFR NON-AFRICAN AMERICAN > 60
--- NOTE | 2018-09-15 09:27 | CP.PCM.CON ---
<Elyse Joaquin - Last Filed: 09/15/18 09:41> History of Present Illness - History of Present Illness History of Present Illness: GI Fellow PGY 5 Consult Note This is a 53yM with pmhx of ischemic cardiomyopathy (occluded RCA) s/p AICD HTN, hypercholesterolemia presenting with complaints of fevers and cough on azithromycin po with no benefit. Pt was admitted and found to have PNA and started on Abx IV Rocephin and Azithromycin. Pt was also being seeing by cardiology who do not believe pt is in CHF and has atypical chest pain likely from PNA. Pt started complaining of epigastric abdominal pain, associated with GERD and reports that this comes and goes and worses by certain food intake. He reports chronic heart burn but not on any mediations. Reports diffuse abdominal discomfort and bloating and constipation. Also reports taking NSAIDs at home for pain 2-3 times a week. No prior EGD or Colonoscopy. Denies any liver disease, known dx of HCV, IVDA, jaundice, cirrhosis. Pt had a CT AP without any contrast which negtaive for any acute GI pathology. ROS: A 12pt ROS was negative except as above PmHx: As stated above PsHx: Denies FHx: Denies malignancy SH: Denies etoh, drugs, tobacco Past Patient History - Infectious Disease Hx of Infectious Diseases: None - Past Medical History & Family History Past Medical History?: Yes - Past Social History Smoking Status: Heavy Smoker > 10 Cigarettes Daily - CARDIAC Hx Hypercholesterolemia: Yes Hx Hypertension: Yes Hx Pacemaker: Yes - PULMONARY Hx Respiratory Disorders: No - NEUROLOGICAL Hx Neurological Disorder: No - HEENT Hx HEENT Problems: No - RENAL Hx Chronic Kidney Disease: No - ENDOCRINE/METABOLIC Hx Endocrine Disorders: No - HEMATOLOGICAL/ONCOLOGICAL Hx Blood Disorders: No - INTEGUMENTARY Hx Dermatological Problems: No - MUSCULOSKELETAL/RHEUMATOLOGICAL Hx Musculoskeletal Disorders: No Hx Falls: No - GASTROINTESTINAL Hx Gastrointestinal Disorders: No - GENITOURINARY/GYNECOLOGICAL Hx Genitourinary Disorders: No - PSYCHIATRIC Hx Anxiety: Yes Hx Depression: Yes Hx Substance Use: No - SURGICAL HISTORY Hx Coronary Stent: Yes - ANESTHESIA Hx Anesthesia: Yes Hx Anesthesia Reactions: No Hx Malignant Hyperthermia: No Meds Allergies/Adverse Reactions: Allergies Allergy/AdvReac Type Severity Reaction Status Date / Time No Known Allergies Allergy Verified 09/11/18 15:11 - Medications Medications: Current Medications Al Hydrox/Mg Hydrox/Simethicone (Maalox 30 Ml) 30 ml PO Q6 PRN PRN Reason: Indigestion / Heartburn Albuterol/Ipratropium (Duoneb 3 Mg/0.5 Mg (3 Ml) Ud) 3 ml INH RQ6 [facility] Last Admin: 09/15/18 08:16 Dose: 3 ml Aripiprazole (Abilify) 20 mg PO DAILY [facility] Last Admin: 09/14/18 09:36 Dose: 20 mg Aspirin (Ecotrin) 81 mg PO DAILY [facility] Last Admin: 09/14/18 09:38 Dose: Not Given Carvedilol (Coreg) 12.5 mg PO DAILY [facility] Last Admin: 09/14/18 10:17 Dose: Not Given Clonazepam (Klonopin) 0.5 mg PO DAILY PRN PRN Reason: depression Last Admin: 09/14/18 16:07 Dose: 0.5 mg Enoxaparin Sodium (Lovenox) 40 mg SC DAILY [facility] Last Admin: 09/14/18 09:36 Dose: 40 mg Famotidine (Pepcid) 20 mg PO BID [facility] Fluoxetine HCl (Prozac) 20 mg PO DAILY [facility] Last Admin: 09/14/18 09:36 Dose: 20 mg Azithromycin 500 mg/ Sodium (Chloride) 250 mls @ 250 mls/hr IVPB DAILY [facility]; Protocol Last Admin: 09/14/18 10:17 Dose: 250 mls/hr Ceftriaxone Sodium 1 gm/ (Sodium Chloride) 100 mls @ 100 mls/hr IVPB DAILY [facility]; Protocol Last Admin: 09/14/18 09:38 Dose: 100 mls/hr Sodium Chloride (Sodium Chloride 0.9%) 1,000 mls @ 75 mls/hr IV .[id number] [facility] Last Admin: 09/15/18 05:48 Dose: 75 mls/hr Losartan Potassium (Cozaar) 25 mg PO DAILY [facility] Last Admin: 09/14/18 09:38 Dose: Not Given Pantoprazole Sodium (Protonix Ec Tab) 40 mg PO DAILY [facility] Last Admin: 09/14/18 09:36 Dose: 40 mg Polyethylene Glycol (Miralax) 17 gm PO DAILY [facility] Promethazine HCl/Codeine (Phenergan/Codeine Oral Syrup) 10 ml PO Q8 PRN PRN Reason: Cough Last Admin: 09/15/18 06:08 Dose: 10 ml Rosuvastatin Calcium (Crestor) 10 mg PO HS [facility] Last Admin: 09/12/18 22:17 Dose: 10 mg Zolpidem Tartrate (Ambien) 5 mg PO HS PRN PRN Reason: Insomnia Last Admin: 09/15/18 00:37 Dose: 5 mg Physical Exam - Constitutional Appears: Non-toxic, No Acute Distress - Head Exam Head Exam: ATRAUMATIC, NORMAL INSPECTION, NORMOCEPHALIC - Eye Exam Eye Exam: EOMI, Normal appearance, PERRL - ENT Exam ENT Exam: Mucous Membranes Moist, Normal Exam - Neck Exam Neck exam: Positive for: Normal Inspection - Respiratory Exam Respiratory Exam: Rhonchi, NORMAL BREATHING PATTERN - Cardiovascular Exam Cardiovascular Exam: REGULAR RHYTHM, RRR, +S1, +S2 - GI/Abdominal Exam GI & Abdominal Exam: Distended, Firm, Normal Bowel Sounds. absent: Guarding, Organomegaly, Tenderness - Rectal Exam Rectal Exam: Deferred - Extremities Exam Extremities exam: Positive for: full ROM, normal inspection - Back Exam Back exam: NORMAL INSPECTION - Neurological Exam Neurological exam: Alert, Oriented x3 - Psychiatric Exam Psychiatric exam: Normal Affect, Normal Mood - Skin Skin Exam: Dry, Intact, Normal Color, Warm Results - Vital Signs Recent Vital Signs: Last Vital Signs Temp 98.0 F 09/15/18 08:21 Pulse 100 H 09/15/18 08:21 Resp 20 09/15/18 08:21 BP 139/94 H 09/15/18 08:21 Pulse Ox 95 09/15/18 08:21 - Labs Result Diagrams: 09/15/18 07:26 09/15/18 07:23 Labs: Laboratory Results - last 24 hr 09/15/18 09/15/18 07:23 07:26 WBC 6.4 RBC 4.13 L Hgb 14.5 Hct 42.1 MCV 102.0 H MCH 35.1 H MCHC 34.4 RDW 14.2 Plt Count 201 MPV 10.9 Neut % (Auto) 61.7 Lymph % (Auto) 23.9 [place] % (Auto) 11.2 H Eos % (Auto) 2.4 Baso % (Auto) 0.8 Neut # (Auto) 3.9 Lymph # (Auto) 1.5 [place] # (Auto) 0.7 Eos # (Auto) 0.2 Baso # (Auto) 0.1 Sodium 139 Potassium 4.3 Chloride 104 Carbon Dioxide 26 Anion Gap 14 BUN 11 Creatinine 0.9 Est GFR ( Amer) > 60 Est GFR (Non-Af Amer) > 60 Random Glucose 100 Calcium 8.5 L Total Bilirubin 0.7 AST 139 H D ALT 180 H D Alkaline Phosphatase 95 Total Protein 6.4 Albumin 3.3 L Globulin 3.0 Albumin/Globulin Ratio 1.1 Assessment & Plan - Assessment and Plan (Free Text) Assessment: 1. Abdominal pain 2. GERD 3. Hx of NASID use 4. Constipaiton 5. Elevated LFTs 6. CAP Plan: -Pt with GERD and NSAID use ddx PUD, gastritis, esophagitis -Recommend PPI daily and H2 santos -Avoid NSAIDs -Pt will benefit from EGD as an outpatient once CAP improved -Mirax daily for constipation -Pt with elevated LFTs from this admission, CK elevated possible rhabdo vs medication induced with azithromycin, need to r/o hepatitis panel, order abd US to r/o PV thrombus, cirrhosis, mass lesion, order autoimmune -Avoid hepatotoxic agents -Will continue to follow closely <Emmett Stanford - Last Filed: 09/15/18 18:21> Meds - Medications Medications: Current Medications Al Hydrox/Mg Hydrox/Simethicone (Maalox 30 Ml) 30 ml PO Q6 PRN PRN Reason: Indigestion / Heartburn Last Admin: 09/15/18 11:27 Dose: 30 ml Albuterol/Ipratropium (Duoneb 3 Mg/0.5 Mg (3 Ml) Ud) 3 ml INH RQ6 [facility] Last Admin: 09/15/18 08:16 Dose: 3 ml Aripiprazole (Abilify) 20 mg PO DAILY [facility] Last Admin: 09/15/18 09:40 Dose: 20 mg Aspirin (Ecotrin) 81 mg PO DAILY [facility] Last Admin: 09/15/18 09:40 Dose: 81 mg Carvedilol (Coreg) 12.5 mg PO DAILY [facility] Last Admin: 09/15/18 09:40 Dose: 12.5 mg Clonazepam (Klonopin) 0.5 mg PO DAILY PRN PRN Reason: depression Last Admin: 09/15/18 11:26 Dose: 0.5 mg Enoxaparin Sodium (Lovenox) 40 mg SC DAILY [facility] Last Admin: 09/15/18 09:40 Dose: 40 mg Famotidine (Pepcid) 20 mg PO BID [facility] Last Admin: 09/15/18 17:50 Dose: 20 mg Fluoxetine HCl (Prozac) 20 mg PO DAILY [facility] Last Admin: 09/15/18 09:40 Dose: 20 mg Azithromycin 500 mg/ Sodium (Chloride) 250 mls @ 250 mls/hr IVPB DAILY [facility]; Protocol Last Admin: 09/15/18 11:00 Dose: 250 mls/hr Ceftriaxone Sodium 1 gm/ (Sodium Chloride) 100 mls @ 100 mls/hr IVPB DAILY [facility]; Protocol Last Admin: 09/15/18 10:00 Dose: 100 mls/hr Sodium Chloride (Sodium Chloride 0.9%) 1,000 mls @ 75 mls/hr IV .[id number] [facility] Last Admin: 09/15/18 05:48 Dose: 75 mls/hr Losartan Potassium (Cozaar) 25 mg PO DAILY [facility] Last Admin: 09/15/18 09:40 Dose: 25 mg Pantoprazole Sodium (Protonix Ec Tab) 40 mg PO DAILY [facility] Last Admin: 09/15/18 09:39 Dose: 40 mg Polyethylene Glycol (Miralax) 17 gm PO DAILY [facility] Last Admin: 09/15/18 09:41 Dose: 17 gm Promethazine HCl/Codeine (Phenergan/Codeine Oral Syrup) 10 ml PO Q8 PRN PRN Reason: Cough Last Admin: 09/15/18 06:08 Dose: 10 ml Rosuvastatin Calcium (Crestor) 10 mg PO HS [facility] Last Admin: 09/12/18 22:17 Dose: 10 mg Zolpidem Tartrate (Ambien) 5 mg PO HS PRN PRN Reason: Insomnia Last Admin: 09/15/18 00:37 Dose: 5 mg Results - Vital Signs Recent Vital Signs: Last Vital Signs Temp 98.1 F 09/15/18 15:00 Pulse 86 09/15/18 15:00 Resp 20 09/15/18 15:00 BP 132/93 H 09/15/18 15:00 Pulse Ox 95 09/15/18 15:00 - Labs Result Diagrams: 09/15/18 07:26 09/15/18 07:23 Labs: Laboratory Results - last 24 hr 09/15/18 09/15/1819 07:23 07:26 09:57 WBC 6.4 RBC 4.13 L Hgb 14.5 Hct 42.1 MCV 102.0 H MCH 35.1 H MCHC 34.4 RDW 14.2 Plt Count 201 MPV 10.9 Neut % (Auto) 61.7 Lymph % (Auto) 23.9 [place] % (Auto) 11.2 H Eos % (Auto) 2.4 Baso % (Auto) 0.8 Neut # (Auto) 3.9 Lymph # (Auto) 1.5 [place] # (Auto) 0.7 Eos # (Auto) 0.2 Baso # (Auto) 0.1 Sodium 139 Potassium 4.3 Chloride 104 Carbon Dioxide 26 Anion Gap 14 BUN 11 Creatinine 0.9 Est GFR ( Amer) > 60 Est GFR (Non-Af Amer) > 60 Random Glucose 100 Calcium 8.5 L Total Bilirubin 0.7 AST 139 H D ALT 180 H D Alkaline Phosphatase 95 Total Protein 6.4 Albumin 3.3 L Globulin 3.0 Albumin/Globulin Ratio 1.1 Urine Opiates Screen Urine Methadone Screen Ur Barbiturates Screen Ur Phencyclidine Scrn Ur Amphetamines Screen U Benzodiazepines Scrn U Oth Cocaine Metabols U Cannabinoids Screen Hepatitis A IgM Ab Negative Hep Bs Antigen Negative Hep B Core IgM Ab Negative Hepatitis C Antibody Negative 09/15/18 13:36 WBC RBC Hgb Hct MCV MCH MCHC RDW Plt Count MPV Neut % (Auto) Lymph % (Auto) [place] % (Auto) Eos % (Auto) Baso % (Auto) Neut # (Auto) Lymph # (Auto) [place] # (Auto) Eos # (Auto) Baso # (Auto) Sodium Potassium Chloride Carbon Dioxide Anion Gap BUN Creatinine Est GFR ( Amer) Est GFR (Non-Af Amer) Random Glucose Calcium Total Bilirubin AST ALT Alkaline Phosphatase Total Protein Albumin Globulin Albumin/Globulin Ratio Urine Opiates Screen Positive H Urine Methadone Screen Negative Ur Barbiturates Screen Negative Ur Phencyclidine Scrn Negative Ur Amphetamines Screen Negative U Benzodiazepines Scrn Negative U Oth Cocaine Metabols Negative U Cannabinoids Screen Negative Hepatitis A IgM Ab Hep Bs Antigen Hep B Core IgM Ab Hepatitis C Antibody Attending/Attestation - Attestation I have personally seen and examined this patient.: Yes I have fully participated in the care of the patient.: Yes I have reviewed all pertinent clinical information: Yes Notes (Text): 09/15/18 18:15 I have seen and examined patient with GI fellow. Agree with above documentation with the following additions. In brief, this is a 53 year old male with history of cardiomyopathy s/p ICD, HTN, hyperlipidemia who presents to hospital with complaint of progressive cough and fever for the past one week. He was initially started on oral antibiotic therapy as outpatient without significant improvement and came to hospital for further treatment. GI called for evaluation of abdominal discomfort and heartburn. He endorses chronic substernal burning along with associated epigastric pain that is worse after meal consumption. He denies nausea, vomiting, fever/chills, weight loss, rectal bleeding, or change in bowel habits. He does admit to regular NSAID use at home for relief of joint pain. He has not tried any medication to alleviate symptoms, no prior endoscopic evaluation. Obesity (BMI 44) Cardiomyopathy s/p ICD HTN Hyperlipidemia Cough, fever - pneumonia Abdominal pain Transaminitis - Diet as tolerated - Continue with antibiotic therapy as per medical team - Continue with PPI therapy - Continue to monitor LFTs, avoid hepatotoxic therapies - Obtain viral hepatitis and autoimmune panels - Patient would benefit from elective outpatient EGD/colonoscopy for chronic heartburn evaluation and age appropriate screening colonoscopy following resolution of acute respiratory infection - Will continue to monitor patient clinical course
[2018-09-15] MEDS: Pantoprazole 40 mg EC Tab PO SCH (09:39)
[2018-09-15] MEDS: Enoxaparin 40 mg Syringe SC SCH (09:40)
[2018-09-15] MEDS: POLYETHYLENE GLYCOL 3350 17 GM/Dose PACKET PO SCH (09:41)
[2018-09-15] MEDS: Azithromycin 500 MG in Sodium Chloride 0.9% 250 ML IVPB SCH (11:00)
[2018-09-15 11:09] LABS: HEPATITIS B SURFACE AG Negative (NEGATIVE)
[2018-09-15 11:14] LABS: HEPATITIS A IGM NEGATIVE (NEGATIVE); HEPATITIS B CORE AB NEGATIVE (NEGATIVE)
[2018-09-15 11:26] LABS: HEPATITIS C ANTIBODY NEGATIVE (NEGATIVE)
[2018-09-15] MEDS: Aluminum Hydroxide/Magnesium Hydroxide Susp (30 mL) PO PRN ×2 (11:27→19:57)
--- NOTE | 2018-09-15 12:25 | CP.PCM.PN ---
Subjective - Date & Time of Evaluation Date of Evaluation: 09/15/18 Time of Evaluation: 12:23 - Subjective Subjective: see dictated notes small iliac artery aneurysms 1.8.-2.2 no intervention required at this time need for careful follow up also discussed contact info given Objective - Vital Signs/Intake and Output Vital Signs (last 24 hours): Temp Pulse Resp BP Pulse Ox 98.0 F 100 H 20 139/94 H 95 09/15/18 08:21 09/15/18 08:21 09/15/18 08:21 09/15/18 09:40 09/15/18 08:21 Intake and Output: 09/15/18 09/15/18 06:59 18:59 Intake Total 950 840 Balance 950 840 - Medications Medications: Current Medications Al Hydrox/Mg Hydrox/Simethicone (Maalox 30 Ml) 30 ml PO Q6 PRN PRN Reason: Indigestion / Heartburn Last Admin: 09/15/18 11:27 Dose: 30 ml Albuterol/Ipratropium (Duoneb 3 Mg/0.5 Mg (3 Ml) Ud) 3 ml INH RQ6 [facility] Last Admin: 09/15/18 08:16 Dose: 3 ml Aripiprazole (Abilify) 20 mg PO DAILY [facility] Last Admin: 09/15/18 09:40 Dose: 20 mg Aspirin (Ecotrin) 81 mg PO DAILY [facility] Last Admin: 09/15/18 09:40 Dose: 81 mg Carvedilol (Coreg) 12.5 mg PO DAILY [facility] Last Admin: 09/15/18 09:40 Dose: 12.5 mg Clonazepam (Klonopin) 0.5 mg PO DAILY PRN PRN Reason: depression Last Admin: 09/15/18 11:26 Dose: 0.5 mg Enoxaparin Sodium (Lovenox) 40 mg SC DAILY [facility] Last Admin: 09/15/18 09:40 Dose: 40 mg Famotidine (Pepcid) 20 mg PO BID [facility] Last Admin: 09/15/18 09:39 Dose: 20 mg Fluoxetine HCl (Prozac) 20 mg PO DAILY [facility] Last Admin: 09/15/18 09:40 Dose: 20 mg Azithromycin 500 mg/ Sodium (Chloride) 250 mls @ 250 mls/hr IVPB DAILY [facility]; Protocol Last Admin: 09/15/18 11:00 Dose: 250 mls/hr Ceftriaxone Sodium 1 gm/ (Sodium Chloride) 100 mls @ 100 mls/hr IVPB DAILY [facility]; Protocol Last Admin: 09/15/18 10:00 Dose: 100 mls/hr Sodium Chloride (Sodium Chloride 0.9%) 1,000 mls @ 75 mls/hr IV .[id number] [facility] Last Admin: 09/15/18 05:48 Dose: 75 mls/hr Losartan Potassium (Cozaar) 25 mg PO DAILY [facility] Last Admin: 09/15/18 09:40 Dose: 25 mg Pantoprazole Sodium (Protonix Ec Tab) 40 mg PO DAILY [facility] Last Admin: 09/15/18 09:39 Dose: 40 mg Polyethylene Glycol (Miralax) 17 gm PO DAILY [facility] Last Admin: 09/15/18 09:41 Dose: 17 gm Promethazine HCl/Codeine (Phenergan/Codeine Oral Syrup) 10 ml PO Q8 PRN PRN Reason: Cough Last Admin: 09/15/18 06:08 Dose: 10 ml Rosuvastatin Calcium (Crestor) 10 mg PO HS [facility] Last Admin: 09/12/18 22:17 Dose: 10 mg Zolpidem Tartrate (Ambien) 5 mg PO HS PRN PRN Reason: Insomnia Last Admin: 09/15/18 00:37 Dose: 5 mg - Labs Labs: 09/15/18 07:26 09/15/18 07:23
--- NOTE | 2018-09-15 13:50 | CP.PCM.CON ---
History of Present Illness - History of Present Illness History of Present Illness: Vascular surgery consult note for Dr. Min De Los Santos, PGY-2 Pt seen/examined at bedside with surgical team 53M w/PMH sig for CAD as below consulted for b/l iliiac dilitation. Pt reports B/l groin pain, severe, non radiating, constant. No alleviating or aggravating factors. Pt reports ability to walk 2 blocks without pain onset. Admits to numbness and weakness b/l in LE, chills, urinary hestiancy. Denies N & V, F, bleeding. PMH: anxiety, depression, HLD, HTN, hx CA (2004) due to RCA occlusion, BPH PSH: Pacemaker, Back surgery (3 screws) All: NKDA SH: hx of tobacco use, denies ETOH use or illicit drug use FH: Non contributory Review of Systems - Review of Systems All systems: reviewed and no additional remarkable complaints except - Constitutional Constitutional: absent: Chills, Fever - EENT Ears: absent: Dizziness Nose/Mouth/Throat: absent: Sore Throat - Cardiovascular Cardiovascular: absent: Chest Pain - Gastrointestinal Gastrointestinal: absent: Abdominal Pain, Nausea, Vomiting - Genitourinary Genitourinary: Urinary Hesitance - Musculoskeletal Musculoskeletal: absent: Back Pain - Integumentary Integumentary: absent: Rash - Neurological Neurological: Numbness (le), Tingling (le), Weakness - Endocrine Endocrine: absent: Fatigue Past Patient History - Infectious Disease Hx of Infectious Diseases: None - Past Medical History & Family History Past Medical History?: Yes - Past Social History Smoking Status: Heavy Smoker > 10 Cigarettes Daily - CARDIAC Hx Hypercholesterolemia: Yes Hx Hypertension: Yes Hx Pacemaker: Yes - PULMONARY Hx Respiratory Disorders: No - NEUROLOGICAL Hx Neurological Disorder: No - HEENT Hx HEENT Problems: No - RENAL Hx Chronic Kidney Disease: No - ENDOCRINE/METABOLIC Hx Endocrine Disorders: No - HEMATOLOGICAL/ONCOLOGICAL Hx Blood Disorders: No - INTEGUMENTARY Hx Dermatological Problems: No - MUSCULOSKELETAL/RHEUMATOLOGICAL Hx Musculoskeletal Disorders: No Hx Falls: No - GASTROINTESTINAL Hx Gastrointestinal Disorders: No - GENITOURINARY/GYNECOLOGICAL Hx Genitourinary Disorders: No - PSYCHIATRIC Hx Anxiety: Yes Hx Depression: Yes Hx Substance Use: No - SURGICAL HISTORY Hx Coronary Stent: Yes - ANESTHESIA Hx Anesthesia: Yes Hx Anesthesia Reactions: No Hx Malignant Hyperthermia: No Meds Allergies/Adverse Reactions: Allergies Allergy/AdvReac Type Severity Reaction Status Date / Time No Known Allergies Allergy Verified 09/11/18 15:11 - Medications Medications: Current Medications Al Hydrox/Mg Hydrox/Simethicone (Maalox 30 Ml) 30 ml PO Q6 PRN PRN Reason: Indigestion / Heartburn Last Admin: 09/15/18 11:27 Dose: 30 ml Albuterol/Ipratropium (Duoneb 3 Mg/0.5 Mg (3 Ml) Ud) 3 ml INH RQ6 [facility] Last Admin: 09/15/18 08:16 Dose: 3 ml Aripiprazole (Abilify) 20 mg PO DAILY [facility] Last Admin: 09/15/18 09:40 Dose: 20 mg Aspirin (Ecotrin) 81 mg PO DAILY [facility] Last Admin: 09/15/18 09:40 Dose: 81 mg Carvedilol (Coreg) 12.5 mg PO DAILY [facility] Last Admin: 09/15/18 09:40 Dose: 12.5 mg Clonazepam (Klonopin) 0.5 mg PO DAILY PRN PRN Reason: depression Last Admin: 09/15/18 11:26 Dose: 0.5 mg Enoxaparin Sodium (Lovenox) 40 mg SC DAILY [facility] Last Admin: 09/15/18 09:40 Dose: 40 mg Famotidine (Pepcid) 20 mg PO BID [facility] Last Admin: 09/15/18 09:39 Dose: 20 mg Fluoxetine HCl (Prozac) 20 mg PO DAILY [facility] Last Admin: 09/15/18 09:40 Dose: 20 mg Azithromycin 500 mg/ Sodium (Chloride) 250 mls @ 250 mls/hr IVPB DAILY [facility]; Protocol Last Admin: 09/15/18 11:00 Dose: 250 mls/hr Ceftriaxone Sodium 1 gm/ (Sodium Chloride) 100 mls @ 100 mls/hr IVPB DAILY [facility]; Protocol Last Admin: 09/15/18 10:00 Dose: 100 mls/hr Sodium Chloride (Sodium Chloride 0.9%) 1,000 mls @ 75 mls/hr IV .[id number] [facility] Last Admin: 09/15/18 05:48 Dose: 75 mls/hr Losartan Potassium (Cozaar) 25 mg PO DAILY [facility] Last Admin: 09/15/18 09:40 Dose: 25 mg Pantoprazole Sodium (Protonix Ec Tab) 40 mg PO DAILY [facility] Last Admin: 09/15/18 09:39 Dose: 40 mg Polyethylene Glycol (Miralax) 17 gm PO DAILY [facility] Last Admin: 09/15/18 09:41 Dose: 17 gm Promethazine HCl/Codeine (Phenergan/Codeine Oral Syrup) 10 ml PO Q8 PRN PRN Reason: Cough Last Admin: 09/15/18 06:08 Dose: 10 ml Rosuvastatin Calcium (Crestor) 10 mg PO HS [facility] Last Admin: 09/12/18 22:17 Dose: 10 mg Zolpidem Tartrate (Ambien) 5 mg PO HS PRN PRN Reason: Insomnia Last Admin: 09/15/18 00:37 Dose: 5 mg Physical Exam - Constitutional Appears: Non-toxic, No Acute Distress - Head Exam Head Exam: ATRAUMATIC, NORMAL INSPECTION, NORMOCEPHALIC - Eye Exam Eye Exam: EOMI, Normal appearance - ENT Exam ENT Exam: Mucous Membranes Moist, Normal Exam - Neck Exam Neck exam: Positive for: Full Rom, Normal Inspection - Respiratory Exam Respiratory Exam: NORMAL BREATHING PATTERN - Cardiovascular Exam Cardiovascular Exam: REGULAR RHYTHM, +S1, +S2 - GI/Abdominal Exam GI & Abdominal Exam: Soft, Tenderness (R groin). absent: Distended (obese), Guarding, Hernia - Extremities Exam Extremities exam: Positive for: normal inspection, pedal pulses present - Neurological Exam Neurological exam: Alert, CN II-XII Intact, Oriented x3 - Psychiatric Exam Psychiatric exam: Normal Affect, Normal Mood - Skin Skin Exam: Dry, Intact, Normal Color, Warm Results - Vital Signs Recent Vital Signs: Last Vital Signs Temp 98.0 F 09/15/18 08:21 Pulse 100 H 09/15/18 08:21 Resp 20 09/15/18 08:21 BP 139/94 H 09/15/18 09:40 Pulse Ox 95 09/15/18 08:21 - Labs Result Diagrams: 09/15/18 07:26 09/15/18 07:23 Labs: Laboratory Results - last 24 hr 09/15/18 09/15/18 09/15/18 07:23 07:26 09:57 WBC 6.4 RBC 4.13 L Hgb 14.5 Hct 42.1 MCV 102.0 H MCH 35.1 H MCHC 34.4 RDW 14.2 Plt Count 201 MPV 10.9 Neut % (Auto) 61.7 Lymph % (Auto) 23.9 [place] % (Auto) 11.2 H Eos % (Auto) 2.4 Baso % (Auto) 0.8 Neut # (Auto) 3.9 Lymph # (Auto) 1.5 [place] # (Auto) 0.7 Eos # (Auto) 0.2 Baso # (Auto) 0.1 Sodium 139 Potassium 4.3 Chloride 104 Carbon Dioxide 26 Anion Gap 14 BUN 11 Creatinine 0.9 Est GFR ( Amer) > 60 Est GFR (Non-Af Amer) > 60 Random Glucose 100 Calcium 8.5 L Total Bilirubin 0.7 AST 139 H D ALT 180 H D Alkaline Phosphatase 95 Total Protein 6.4 Albumin 3.3 L Globulin 3.0 Albumin/Globulin Ratio 1.1 Hepatitis A IgM Ab Negative Hep Bs Antigen Negative Hep B Core IgM Ab Negative Hepatitis C Antibody Negative Assessment & Plan - Assessment and Plan (Free Text) Assessment: 53M w/PMH sig for b/l iliac dilitation and LE pain Plan: Imaging reviewed by Dr. Johnson- small iliac artery aneurysm No vascular surgery indicated at this time Pt to to followed up outpatient for monitoring DW Dr. Alex De Los Santos, PGY-2 - Date & Time Date: 09/15/18 Time: 13:48
[2018-09-15 14:07] LABS: BARBITURATES, UR NEGATIVE (NEGATIVE); BENZODIAZEPINES, UR NEGATIVE (NEGATIVE); PHENCYCLIDINE, UR NEGATIVE (NEGATIVE)
--- NOTE | 2018-09-15 14:10 | CT ---
PROCEDURE: CT Abdomen and Pelvis without Oral or IV contrast. HISTORY: abdominal pain/reflux COMPARISON: CTA chest PE protocol performed 09/14/18 TECHNIQUE: Contiguous axial images of the abdomen and pelvis. No oral or IV contrast administered. Coronal and Sagittal reformats generated and reviewed. Radiation dose: Total exam DLP = 1223.21 mGy-cm. This CT exam was performed using one or more of the following dose reduction techniques: Automated exposure control, adjustment of the mA and/or kV according to patient size, and/or use of iterative reconstruction technique. FINDINGS: There is limited evaluation of the solid organs without the administration of IV contrast. LOWER THORAX: Partially imaged right lower lobe patchy and confluent airspace consolidations consistent with pneumonia. No visible pleural effusion or pneumothorax. Partially imaged AICD leads. Small hiatal hernia/distal esophageal wall thickening. LIVER: Unremarkable unenhanced appearance. GALLBLADDER AND BILE DUCTS: Evidence of vicarious excretion of contrast patient of contrast into the gallbladder presumably from CTA of the chest performed earlier the same day. PANCREAS: Fatty atrophy of the pancreas. SPLEEN: Unremarkable unenhanced appearance. ADRENALS: Unremarkable unenhanced appearance. KIDNEYS AND URETERS: No hydronephrosis or obstructing renal calculus. BLADDER: The urinary bladder appears unremarkable. REPRODUCTIVE: Unremarkable. APPENDIX: The appendix appears within normal limits of caliber. No secondary signs of acute appendicitis. BOWEL: The stomach is nondistended. Lack of oral contrast limits evaluation for bowel pathology. The bowel loops appear within normal limits of caliber without evidence of intestinal obstruction. PERITONEUM: No significant free fluid. No definite free air. LYMPH NODES: No bulky lymphadenopathy identified. VASCULATURE: Atherosclerotic calcifications of the aorta and branches. Aortic ectasia. Aneurysmal dilatation of the bilateral common iliac arteries measuring approximately 2.2 cm on the right and 1.8 cm on the left. BONES: Degenerative changes. Intervertebral disc space narrowing at L5-S1. OTHER FINDINGS: Bilateral fat containing inguinal hernias. IMPRESSION: Partially imaged right lower lobe patchy and confluent airspace consolidations consistent with pneumonia. Aortic ectasia. Aneurysmal dilatation of bilateral common iliac arteries measuring approximately 2.2 cm on the right 1.8 cm on the left. Small hiatal hernia/distal esophageal wall thickening. Additional incidental findings as above. Preliminary impression was provided by [email or web address]
[2018-09-15 14:25] LABS: OPIATES, UR POSITIVE (NEGATIVE)
--- NOTE | 2018-09-15 14:57 | PCM.PSYCH ---
Initial Psychiatric Evaluation - Initial Psychiatric Evaluation Type of Admission: Voluntary Legal Status: Capacity Chief Complaint (in patient's own words): I've been having panic attacks History of Present Illness and Precipitating Events: Psych consult note: Patient is a 53 year old male with pmhx of anxiety, depression, HTN, HLD, CAD admitted for treatment of pneumonia; psych consulted for evaluation of self reported panic attacks. He is unemployed on disability 2/2 chronic back pain requiring surgery. Patient lives alone and has no children. Patient reports he has a history of diagnosed anxiety and depression, and follows with psychiatrist outpatient, but in not currently under treatment as he has to find a new doctor. He states he takes medication, but cannot recall which ones. Patient reports episodes of panic attacks during hospitalizations, 2 yesterday and 1 this morning. He reports that when he is attempting to get into bed, he begins to experience discomfort in his upper abdomen and lower chest; he reports the discomfort as tightening. Patient denies palpitations, SOB, racing thoughts. He states episodes come on suddenly, and then resolve after several minutes. Patient denies previous episodes like this in the past. Patient denies previous inpatient psych hospitalizations, SI/HI, drug/alcohol use. PsychHx: anxiety, depression PMHx: HTN, HLD, CAD Current Medications: Active Medications Generic Name Dose Route Start Last Admin Trade Name Freq PRN Reason Stop Dose Admin Al Hydrox/Mg Hydrox/Simethicone 30 ml 09/14/18 20:42 09/15/18 11:27 Maalox 30 Ml PO 30 ml Q6 PRN Administration Indigestion / Heartburn Albuterol/Ipratropium 3 ml 09/12/18 14:00 09/15/18 08:16 Duoneb 3 Mg/0.5 Mg (3 Ml) Ud INH 3 ml RQ6 [facility] Administration Aripiprazole 20 mg 09/13/18 10:00 09/15/18 09:40 Abilify PO 20 mg DAILY [facility]JIT Administration Aspirin 81 mg 09/13/18 10:00 09/15/18 09:40 Ecotrin PO 81 mg DAILY HARJIT Administration Carvedilol 12.5 mg 09/13/18 10:00 09/15/18 09:40 Coreg PO 12.5 mg DAILY HARJIT Administration Clonazepam 0.5 mg 09/12/18 17:32 09/15/18 11:26 Klonopin PO 0.5 mg DAILY PRN Administration depression Enoxaparin Sodium 40 mg 09/12/18 10:00 09/15/18 09:40 Lovenox SC 40 mg DAILY [facility]JIT Administration Famotidine 20 mg 09/15/18 10:00 09/15/18 09:39 Pepcid PO 20 mg BID HARJIT Administration Fluoxetine HCl 20 mg 09/13/18 10:00 09/15/18 09:40 Prozac PO 20 mg DAILY [facility]JIT Administration Azithromycin 500 mg/ Sodium 250 mls @ 250 mls/hr 09/12/18 10:00 09/15/18 11:00 Chloride IVPB 250 mls/hr DAILY [facility]JIT Administration Protocol Ceftriaxone Sodium 1 gm/ 100 mls @ 100 mls/hr 09/12/18 10:00 09/15/18 10:00 Sodium Chloride IVPB 100 mls/hr DAILY [facility]JIT Administration Protocol Sodium Chloride 1,000 mls @ 75 mls/hr 09/11/18 18:00 09/15/18 05:48 Sodium Chloride 0.9% IV 75 mls/hr .[id number] [facility]JIT Administration Losartan Potassium 25 mg 09/13/18 10:00 09/15/18 09:40 Cozaar PO 25 mg DAILY [facility]JIT Administration Pantoprazole Sodium 40 mg 09/12/18 10:00 09/15/18 09:39 Protonix Ec Tab PO 40 mg DAILY [facility]JIT Administration Polyethylene Glycol 17 gm 09/15/18 10:00 09/15/18 09:41 Miralax PO 17 gm DAILY [facility]IT Administration Promethazine HCl/Codeine 10 ml 09/12/18 17:27 09/15/18 06:08 Phenergan/Codeine Oral Syrup PO 10 ml Q8 PRN Administration Cough Rosuvastatin Calcium 10 mg 09/12/18 22:00 09/12/18 22:17 Crestor PO 10 mg HS HARJIT Administration Zolpidem Tartrate 5 mg 09/12/18 17:30 09/15/18 00:37 Ambien PO 5 mg HS PRN Administration Insomnia Past Psychiatric History - Past Psychiatric History Previous Treatment History: None Pertinent Medical Hx (Current Medical&Sleep Prob, Allergies): Allergies Allergy/AdvReac Type Severity Reaction Status Date / Time No Known Allergies Allergy Verified 09/11/18 15:11 Carvedilol [Coreg] 12.5 mg PO DAILY 09/09/17 Clonazepam 0.5 mg PO DAILY PRN 09/09/17 FLUoxetine [Prozac] 20 mg PO DAILY 09/09/17 Aripiprazole [Abilify] 20 mg PO DAILY 07/21/18 Atorvastatin [Lipitor] 20 mg PO HS 07/21/18 Losartan [Cozaar] 25 mg PO DAILY 07/21/18 Azithromycin 250 mg PO DAILY 09/11/18 Review of Systems - Psychiatric Psychiatric: Anxiety, Depression, Panic Attacks. absent: Auditory Hallucinations, Homicidal Ideation, Suicidal Ideation, Visual Hallucinations Mental Status Examination - Personal Presentation Personal Presentation: Looks stated age - Affect Affect: Constricted - Motor Activity Motor Activity: Calm - Reliability in Providing Information Reliability in Providing Information: Fair - Speech Speech: Organized - Mood Mood: Neutral - Formal Thought Process Formal Thought Process: No Impairment - Cognitive Functions Orientation: Person, Place, Situation, Time Sensorium: Drowsy Attention/Concentration: Attentive Judgement: Imparied, as evidence by: Lack of insight into illness - Risk Risk: Diminished functioning - Strength & Assets Inventory Strength & Assets Inventory: Cooperative - Limitations Limitations: Living alone DSM 5 DX - DSM 5 DSM 5 Diagnosis: Mood disorder, unspecified - Recommended/Plan of Treatment Treatment Recommendations and Plan of Treatment: Continue home Abilify, Prozac, PRN medications, Klonopin, Ambien Recommend avoidance of Ativan and other respiratory depressing agents Psycho-education and support provided Teach healthy lifestyle methods Further recs per Dr. Lopez Discussed with Dr. Lopez, -Itzel Gates, PGY-1 31 min - Smoking Cessation Smoking Cessation Initiated: Yes
--- NOTE | 2018-09-15 17:18 | US ---
HISTORY: elevated lFTS, PV ? COMPARISON: CT abdomen and pelvis without contrast performed 09/14/18 TECHNIQUE: Sonographic evaluation of the abdomen. FINDINGS: LIVER: Measures 16.6 cm in sagittal dimension. Echogenic liver may be seen in setting of hepatic parenchymal disease or fatty infiltration. No focal hepatic mass identified. The main portal vein appears patent with normal directional flow. Intrahepatic inferior vena cava and left, middle, and right hepatic veins appear patent with normal hepatic venous waveforms. No intrahepatic bile duct dilatation. GALLBLADDER: No gallstones. No gallbladder wall thickening. Negative sonographic Dia's sign as assessed by the bilingual receptionist. COMMON BILE DUCT: Measures 3 mm. PANCREAS: Not well visualized. RIGHT KIDNEY: Measures 12.2 x 5.6 x 5.9cm. No obstructing calculus or hydronephrosis identified. LEFT KIDNEY: Measures 11.3 x 5.6 x 4.8cm. No obstructing calculus or hydronephrosis identified. SPLEEN: Measures approximately 8.3 cm. AORTA: Limited views appear unremarkable. IVC: Limited views appear unremarkable. OTHER FINDINGS: Incidental note is made of small right pleural effusion. IMPRESSION: Echogenic liver may be seen in setting of hepatic parenchymal disease or fatty infiltration. Patent hepatic vasculature with appropriate directional flow. Incidental note is made of small right pleural effusion.
--- NOTE | 2018-09-15 19:07 | CP.PCM.PN ---
Subjective - Date & Time of Evaluation Date of Evaluation: 09/15/18 Time of Evaluation: 19:03 - Subjective Subjective: PT ALERT, FEELS BETTER., NO SOB. AMBULATING., S/P MILD HEMOPTYSIS LAST NIGHT, NO MORE TODAY. ROS; OTHERWISE NEG. Objective - Vital Signs/Intake and Output Vital Signs (last 24 hours): Temp Pulse Resp BP Pulse Ox 98.1 F 86 20 132/93 H 95 09/15/18 15:00 09/15/18 15:00 09/15/18 15:00 09/15/18 15:00 09/15/18 15:00 Intake and Output: 09/15/18 09/16/18 18:59 06:59 Intake Total 2240 Balance 2240 - Medications Medications: Current Medications Al Hydrox/Mg Hydrox/Simethicone (Maalox 30 Ml) 30 ml PO Q6 PRN PRN Reason: Indigestion / Heartburn Last Admin: 09/15/18 11:27 Dose: 30 ml Albuterol/Ipratropium (Duoneb 3 Mg/0.5 Mg (3 Ml) Ud) 3 ml INH RQ6 [facility] Last Admin: 09/15/18 08:16 Dose: 3 ml Aripiprazole (Abilify) 20 mg PO DAILY [facility] Last Admin: 09/15/18 09:40 Dose: 20 mg Aspirin (Ecotrin) 81 mg PO DAILY [facility] Last Admin: 09/15/18 09:40 Dose: 81 mg Carvedilol (Coreg) 12.5 mg PO DAILY [facility] Last Admin: 09/15/18 09:40 Dose: 12.5 mg Clonazepam (Klonopin) 0.5 mg PO DAILY PRN PRN Reason: depression Last Admin: 09/15/18 11:26 Dose: 0.5 mg Enoxaparin Sodium (Lovenox) 40 mg SC DAILY [facility] Last Admin: 09/15/18 09:40 Dose: 40 mg Famotidine (Pepcid) 20 mg PO BID [facility] Last Admin: 09/15/18 17:50 Dose: 20 mg Fluoxetine HCl (Prozac) 20 mg PO DAILY [facility] Last Admin: 09/15/18 09:40 Dose: 20 mg Azithromycin 500 mg/ Sodium (Chloride) 250 mls @ 250 mls/hr IVPB DAILY [facility]; Protocol Last Admin: 09/15/18 11:00 Dose: 250 mls/hr Ceftriaxone Sodium 1 gm/ (Sodium Chloride) 100 mls @ 100 mls/hr IVPB DAILY [facility]; Protocol Last Admin: 09/15/18 10:00 Dose: 100 mls/hr Sodium Chloride (Sodium Chloride 0.9%) 1,000 mls @ 75 mls/hr IV .[id number] [facility]JIT Last Admin: 09/15/18 05:48 Dose: 75 mls/hr Losartan Potassium (Cozaar) 25 mg PO DAILY [facility] Last Admin: 09/15/18 09:40 Dose: 25 mg Pantoprazole Sodium (Protonix Ec Tab) 40 mg PO DAILY [facility] Last Admin: 09/15/18 09:39 Dose: 40 mg Polyethylene Glycol (Miralax) 17 gm PO DAILY [facility] Last Admin: 09/15/18 09:41 Dose: 17 gm Promethazine HCl/Codeine (Phenergan/Codeine Oral Syrup) 10 ml PO Q8 PRN PRN Reason: Cough Last Admin: 09/15/18 06:08 Dose: 10 ml Rosuvastatin Calcium (Crestor) 10 mg PO HS [facility]JIT Last Admin: 09/12/18 22:17 Dose: 10 mg Zolpidem Tartrate (Ambien) 5 mg PO HS PRN PRN Reason: Insomnia Last Admin: 09/15/18 00:37 Dose: 5 mg - Labs Labs: 09/15/18 07:26 09/15/18 07:23 - Constitutional Appears: Non-toxic, No Acute Distress - Head Exam Head Exam: ATRAUMATIC, NORMOCEPHALIC - Eye Exam Eye Exam: EOMI - ENT Exam ENT Exam: Mucous Membranes Moist - Neck Exam Neck Exam: Normal Inspection - Respiratory Exam Respiratory Exam: Decreased Breath Sounds, Rhonchi. absent: Wheezes Additional comments: RIGHT RHONCHI >L - Cardiovascular Exam Cardiovascular Exam: RRR, +S1, +S2 - GI/Abdominal Exam GI & Abdominal Exam: Soft. absent: Tenderness Additional comments: OBESE - Rectal Exam Rectal Exam: Deferred - Extremities Exam Extremities Exam: absent: Calf Tenderness, Pedal Edema - Back Exam Back Exam: absent: CVA tenderness (L), CVA tenderness (R) - Neurological Exam Neurological Exam: Alert, Awake, CN II-XII Intact, Normal Gait, Oriented x3 - Psychiatric Exam Psychiatric exam: Normal Mood - Skin Skin Exam: absent: Rash Assessment and Plan (1) COPD exacerbation Status: Acute (2) HERI (obstructive sleep apnea) Status: Acute (3) Pneumonia Status: Acute (4) Rhabdomyolysis Status: Acute (5) CAD (coronary artery disease) Status: Acute (6) HTN (hypertension) Status: Acute (7) Hypercholesteremia Status: Acute - Assessment and Plan (Free Text) Assessment: RESP STATUS IMPROVING, HEMOPTYSIS RESOLVING., CTA REVIEWED, NEG PE +RIGHT INF ILT. CONT IV AB. MONITOR O2 SAT. CONT PULM TOILET., VASC EVAL NOTED., GI EVAL NOTED. PSYCH EVAL NOTED. DISCUSSED WITH STAFF AT LENGTH.
--- NOTE | 2018-09-15 19:54 | CP.PCM.PN ---
Subjective - Date & Time of Evaluation Date of Evaluation: 09/15/18 - Subjective Subjective: patient examined today no nausea no vomiting no dizziness c/o ocugh still preestn now costipation tih some abd discomfrt started on laxative no diarrhea no shortness of breath Objective - Vital Signs/Intake and Output Vital Signs (last 24 hours): Temp Pulse Resp BP Pulse Ox 98.1 F 86 20 132/93 H 95 09/15/18 15:00 09/15/18 15:00 09/15/18 15:00 09/15/18 15:00 09/15/18 15:00 Intake and Output: 09/15/18 09/16/18 18:59 06:59 Intake Total 2240 Balance 2240 - Medications Medications: Current Medications Al Hydrox/Mg Hydrox/Simethicone (Maalox 30 Ml) 30 ml PO Q6 PRN PRN Reason: Indigestion / Heartburn Last Admin: 09/15/18 11:27 Dose: 30 ml Albuterol/Ipratropium (Duoneb 3 Mg/0.5 Mg (3 Ml) Ud) 3 ml INH RQ6 [facility] Last Admin: 09/15/18 08:16 Dose: 3 ml Aripiprazole (Abilify) 20 mg PO DAILY [facility] Last Admin: 09/15/18 09:40 Dose: 20 mg Aspirin (Ecotrin) 81 mg PO DAILY [facility] Last Admin: 09/15/18 09:40 Dose: 81 mg Carvedilol (Coreg) 12.5 mg PO DAILY [facility] Last Admin: 09/15/18 09:40 Dose: 12.5 mg Clonazepam (Klonopin) 0.5 mg PO DAILY PRN PRN Reason: depression Last Admin: 09/15/18 11:26 Dose: 0.5 mg Enoxaparin Sodium (Lovenox) 40 mg SC DAILY [facility] Last Admin: 09/15/18 09:40 Dose: 40 mg Famotidine (Pepcid) 20 mg PO BID [facility] Last Admin: 09/15/18 17:50 Dose: 20 mg Fluoxetine HCl (Prozac) 20 mg PO DAILY [facility] Last Admin: 09/15/18 09:40 Dose: 20 mg Azithromycin 500 mg/ Sodium (Chloride) 250 mls @ 250 mls/hr IVPB DAILY [facility]; Protocol Last Admin: 09/15/18 11:00 Dose: 250 mls/hr Ceftriaxone Sodium 1 gm/ (Sodium Chloride) 100 mls @ 100 mls/hr IVPB DAILY [facility]; Protocol Last Admin: 09/15/18 10:00 Dose: 100 mls/hr Sodium Chloride (Sodium Chloride 0.9%) 1,000 mls @ 75 mls/hr IV .[id number] [facility] Last Admin: 09/15/18 05:48 Dose: 75 mls/hr Losartan Potassium (Cozaar) 25 mg PO DAILY [facility] Last Admin: 09/15/18 09:40 Dose: 25 mg Pantoprazole Sodium (Protonix Ec Tab) 40 mg PO DAILY [facility] Last Admin: 09/15/18 09:39 Dose: 40 mg Polyethylene Glycol (Miralax) 17 gm PO DAILY [facility] Last Admin: 09/15/18 09:41 Dose: 17 gm Promethazine HCl/Codeine (Phenergan/Codeine Oral Syrup) 10 ml PO Q8 PRN PRN Reason: Cough Last Admin: 09/15/18 06:08 Dose: 10 ml Rosuvastatin Calcium (Crestor) 10 mg PO HS [facility] Last Admin: 09/12/18 22:17 Dose: 10 mg Zolpidem Tartrate (Ambien) 5 mg PO HS PRN PRN Reason: Insomnia Last Admin: 09/15/18 00:37 Dose: 5 mg - Labs Labs: 09/15/18 07:26 09/15/18 07:23 - Constitutional Appears: Well - Head Exam Head Exam: ATRAUMATIC, NORMAL INSPECTION, NORMOCEPHALIC - Eye Exam Eye Exam: EOMI, Normal appearance, PERRL Pupil Exam: NORMAL ACCOMODATION, PERRL - ENT Exam ENT Exam: Mucous Membranes Moist, Normal Exam - Neck Exam Neck Exam: Full ROM, Normal Inspection. absent: Lymphadenopathy - Respiratory Exam Respiratory Exam: Decreased Breath Sounds - Cardiovascular Exam Cardiovascular Exam: REGULAR RHYTHM, +S1, +S2 - GI/Abdominal Exam GI & Abdominal Exam: Soft, Diminished Bowel Sounds - Rectal Exam Rectal Exam: Deferred - Neurological Exam Neurological Exam: Oriented x3 Assessment and Plan (1) COPD exacerbation Status: Acute (2) Failure of outpatient treatment Status: Acute (3) HERI (obstructive sleep apnea) Status: Acute (4) Pneumonia Status: Acute (5) Rhabdomyolysis Status: Acute (6) CAD (coronary artery disease) Status: Acute (7) Chest discomfort Status: Acute (8) Chest pain Status: Acute (9) HTN (hypertension) Status: Acute (10) Hypercholesteremia Status: Acute (11) Influenza-like illness Status: Acute (12) Ischemic cardiomyopathy Status: Acute (13) Leg swelling Status: Acute (14) Otitis externa Status: Acute (15) Otitis media Status: Acute (16) Shingles Status: Acute (17) URI (upper respiratory infection) Status: Acute (18) Viral syndrome Status: Acute - Assessment and Plan (Free Text) Plan: mumtaz siddiqui azithromycin ceftriaxone sodium coreg cozaar crestorduoneb ecotrin klonopin lovenox phengergan/codeine oral syrup protonix ec tab prozac sodium chloride moderate complexity of care plan discussed with patient
[2018-09-16 00:42] VITALS: O2SAT 96
[2018-09-16] MEDS: Albuterol-Ipratrop 3 mg / 0.5 (3 ml) UD INH SCH ×4 (02:12→13:55)
--- NOTE | 2018-09-16 06:14 | CON ---
DATE: 09/15/2018 REQUESTED BY: Claudia Morfin MD PREOPERATIVE DIAGNOSIS: Bilateral common iliac artery aneurysms measuring 1.8 and 2.2 cm. HISTORY OF PRESENT ILLNESS: The patient is a 53-year-old man who is admitted to the hospital for other reasons. I was asked to see for evaluation of 1.8 to 2.2 iliac artery aneurysms discovered on a CAT scan done of his abdomen. PAST MEDICAL HISTORY: Significant for back surgery for which he had surgery and for which he is considered disabled. He also had a pacemaker inserted. He denied any coronary interventions such as a bypass or a stent placement. SOCIAL HISTORY: He does not smoke, drink or use drugs. He is disabled. FAMILY HISTORY: No one to his knowledge has had an abdominal aortic or even a cerebral aneurysm. REVIEW OF SYSTEMS: A system review was obtained particularly in regard to GI and and all the other complaints and he did not have much except to be clear about the problems with his back and the fact that he has had a pacemaker inserted. PHYSICAL EXAMINATION: VITAL SIGNS: He is 5 feet 3 inches tall, weighs 250 pounds. He has a BMI of 44.3 kg/m2. His general physical exam is unremarkable in the sense that he has all peripheral pulses of both upper and lower extremities. He does not have any palpable aneurysms and he does not have any palpable popliteal aneurysm. IMPRESSION: This is a man who has asymptomatic small iliac artery aneurysm. This does require a close followup. He is only 53 years old and has a long life ahead of him. This needs to be followed and I discussed this, gave him my card, told him to follow up in the office, so that we can go over further discussion regarding his problem and if the need arose for intervention. Emiliano Johnson Jr., MD
[2018-09-16] MEDS: Sodium Chloride 0.9% 1,000 ML IV SCH (06:46)
[2018-09-16 08:00] VITALS: PULSE 86; TEMP 97.8
[2018-09-16 08:03] LABS: ALB/GLOB RATIO 1.1 (1.0-2.1); ALBUMIN 3.4 g/dL (3.5-5.0); ALT/SGPT 200 U/L (21-72); AST/SGOT 136 U/L (17-59); BLOOD UREA NITROGEN 13 mg/dL (9-20); CALCIUM 8.6 mg/dl (8.6-10.4); GFR NON-AFRICAN AMERICAN > 60
[2018-09-16] MEDS: Azithromycin 500 MG in Sodium Chloride 0.9% 250 ML IVPB SCH (09:17)
[2018-09-16] MEDS: POLYETHYLENE GLYCOL 3350 17 GM/Dose PACKET PO SCH (09:18)
[2018-09-16] MEDS: Enoxaparin 40 mg Syringe SC SCH (09:18)
[2018-09-16] MEDS: Pantoprazole 40 mg EC Tab PO SCH (09:20)
--- NOTE | 2018-09-16 10:38 | CP.PCM.PN ---
<Jemal,Elyse - Last Filed: 09/16/18 10:35> Subjective - Date & Time of Evaluation Date of Evaluation: 09/16/18 Time of Evaluation: 07:00 - Subjective Subjective: GI Fellow PGY5 Progress Note Pt seen and evaluated at bedside, pt feels alittle better after PPI but still having GERD. Pt tolerating diet with no N/V. ROS: A 12pt ROS was negative except as above. Objective - Vital Signs/Intake and Output Vital Signs (last 24 hours): Temp Pulse Resp BP Pulse Ox 97.8 F 86 20 152/93 H 96 09/16/18 07:59 09/16/18 07:59 09/16/18 07:59 09/16/18 09:19 09/16/18 07:59 Intake and Output: 09/16/18 09/16/18 06:59 18:59 Intake Total 1960 Balance 1960 - Medications Medications: Current Medications Al Hydrox/Mg Hydrox/Simethicone (Maalox 30 Ml) 30 ml PO Q6 PRN PRN Reason: Indigestion / Heartburn Last Admin: 09/15/18 19:57 Dose: 30 ml Albuterol/Ipratropium (Duoneb 3 Mg/0.5 Mg (3 Ml) Ud) 3 ml INH RQ6 [facility] Last Admin: 09/16/18 08:28 Dose: 3 ml Aripiprazole (Abilify) 20 mg PO DAILY [facility] Last Admin: 09/16/18 09:18 Dose: 20 mg Aspirin (Ecotrin) 81 mg PO DAILY [facility] Last Admin: 09/16/18 09:19 Dose: 81 mg Carvedilol (Coreg) 12.5 mg PO DAILY [facility] Last Admin: 09/16/18 09:19 Dose: 12.5 mg Clonazepam (Klonopin) 0.5 mg PO DAILY PRN PRN Reason: depression Last Admin: 09/15/18 11:26 Dose: 0.5 mg Enoxaparin Sodium (Lovenox) 40 mg SC DAILY [facility] Last Admin: 09/16/18 09:18 Dose: 40 mg Famotidine (Pepcid) 20 mg PO BID [facility] Last Admin: 09/16/18 09:19 Dose: 20 mg Fluoxetine HCl (Prozac) 20 mg PO DAILY [facility] Last Admin: 09/16/18 09:19 Dose: 20 mg Azithromycin 500 mg/ Sodium (Chloride) 250 mls @ 250 mls/hr IVPB DAILY [facility]; Protocol Last Admin: 09/16/18 09:17 Dose: 250 mls/hr Ceftriaxone Sodium 1 gm/ (Sodium Chloride) 100 mls @ 100 mls/hr IVPB DAILY [facility]; Protocol Last Admin: 09/16/18 09:17 Dose: 100 mls/hr Sodium Chloride (Sodium Chloride 0.9%) 1,000 mls @ 75 mls/hr IV .[id number] [facility] Last Admin: 09/16/18 06:46 Dose: Not Given Ketorolac Tromethamine (Toradol) 15 mg IVP Q8 PRN PRN Reason: Pain, Mild (1-3) Last Admin: 09/16/18 06:49 Dose: 15 mg Losartan Potassium (Cozaar) 25 mg PO DAILY [facility] Last Admin: 09/16/18 09:19 Dose: 25 mg Pantoprazole Sodium (Protonix Ec Tab) 40 mg PO DAILY [facility] Last Admin: 09/16/18 09:20 Dose: 40 mg Polyethylene Glycol (Miralax) 17 gm PO DAILY [facility] Last Admin: 09/16/18 09:18 Dose: Not Given Promethazine HCl/Codeine (Phenergan/Codeine Oral Syrup) 10 ml PO Q8 PRN PRN Reason: Cough Last Admin: 09/15/18 06:08 Dose: 10 ml Rosuvastatin Calcium (Crestor) 10 mg PO HS [facility] Last Admin: 09/12/18 22:17 Dose: 10 mg Zolpidem Tartrate (Ambien) 5 mg PO HS PRN PRN Reason: Insomnia Last Admin: 09/15/18 21:03 Dose: 5 mg - Labs Labs: 09/15/18 07:26 09/16/18 07:15 - Constitutional Appears: Non-toxic, No Acute Distress - Head Exam Head Exam: ATRAUMATIC, NORMAL INSPECTION, NORMOCEPHALIC - Eye Exam Eye Exam: EOMI, Normal appearance, PERRL - ENT Exam ENT Exam: Mucous Membranes Moist - Neck Exam Neck Exam: Full ROM, Normal Inspection - Respiratory Exam Respiratory Exam: Clear to Ausculation Bilateral, NORMAL BREATHING PATTERN - Cardiovascular Exam Cardiovascular Exam: REGULAR RHYTHM, RRR, +S1, +S2 - GI/Abdominal Exam GI & Abdominal Exam: Distended, Firm, Soft, Normal Bowel Sounds. absent: Guarding, Rigid, Tenderness - Rectal Exam Rectal Exam: Deferred - Extremities Exam Extremities Exam: Full ROM, Normal Inspection - Neurological Exam Neurological Exam: Alert, Awake, Oriented x3 - Psychiatric Exam Psychiatric exam: Normal Affect, Normal Mood - Skin Skin Exam: Dry, Intact, Normal Color, Warm Assessment and Plan - Assessment and Plan (Free Text) Assessment: 1. Abdominal pain 2. GERD 3. Hx of NASID use 4. Constipation 5. Elevated LFTs 6. CAP Plan: -Pt with GERD and NSAID use ddx PUD, gastritis, esophagitis -Recommend PPI daily and H2 santos prn -Avoid NSAIDs -Mirax daily for constipation -Pt with elevated LFTs from this admission, fatty liver vs medication induced with azithromycin, hepatitis panel negative, abd US with no PV thrombus, cirrhosis, mass lesion, only fatty liver -Avoid hepatotoxic agents --Pt will benefit from EGD as an outpatient once CAP improved <Emmett Stanford - Last Filed: 09/16/18 11:21> Objective - Vital Signs/Intake and Output Vital Signs (last 24 hours): Temp Pulse Resp BP Pulse Ox 97.8 F 86 20 152/93 H 96 09/16/18 07:59 09/16/18 07:59 09/16/18 07:59 09/16/18 09:19 09/16/18 07:59 Intake and Output: 09/16/18 09/16/18 06:59 18:59 Intake Total 1960 Balance 1960 - Medications Medications: Current Medications Al Hydrox/Mg Hydrox/Simethicone (Maalox 30 Ml) 30 ml PO Q6 PRN PRN Reason: Indigestion / Heartburn Last Admin: 09/16/18 11:07 Dose: 30 ml Albuterol/Ipratropium (Duoneb 3 Mg/0.5 Mg (3 Ml) Ud) 3 ml INH RQ6 [facility] Last Admin: 09/16/18 08:28 Dose: 3 ml Aripiprazole (Abilify) 20 mg PO DAILY [facility] Last Admin: 09/16/18 09:18 Dose: 20 mg Aspirin (Ecotrin) 81 mg PO DAILY [facility] Last Admin: 09/16/18 09:19 Dose: 81 mg Carvedilol (Coreg) 12.5 mg PO DAILY [facility] Last Admin: 05/02/19 09:19 Dose: 12.5 mg Clonazepam (Klonopin) 0.5 mg PO DAILY PRN PRN Reason: depression Last Admin: 09/15/18 11:26 Dose: 0.5 mg Enoxaparin Sodium (Lovenox) 40 mg SC DAILY [facility] Last Admin: 09/16/18 09:18 Dose: 40 mg Famotidine (Pepcid) 20 mg PO BID [facility] Last Admin: 09/16/18 09:19 Dose: 20 mg Fluoxetine HCl (Prozac) 20 mg PO DAILY [facility] Last Admin: 09/16/18 09:19 Dose: 20 mg Azithromycin 500 mg/ Sodium (Chloride) 250 mls @ 250 mls/hr IVPB DAILY [facility]; Protocol Last Admin: 09/16/18 09:17 Dose: 250 mls/hr Ceftriaxone Sodium 1 gm/ (Sodium Chloride) 100 mls @ 100 mls/hr IVPB DAILY [facility]; Protocol Last Admin: 09/16/18 09:17 Dose: 100 mls/hr Sodium Chloride (Sodium Chloride 0.9%) 1,000 mls @ 75 mls/hr IV .[id number] [facility] Last Admin: 09/16/18 06:46 Dose: Not Given Ketorolac Tromethamine (Toradol) 15 mg IVP Q8 PRN PRN Reason: Pain, Mild (1-3) Last Admin: 09/16/18 06:49 Dose: 15 mg Losartan Potassium (Cozaar) 25 mg PO DAILY [facility] Last Admin: 09/16/18 09:19 Dose: 25 mg Pantoprazole Sodium (Protonix Ec Tab) 40 mg PO DAILY [facility] Last Admin: 09/16/18 09:20 Dose: 40 mg Polyethylene Glycol (Miralax) 17 gm PO DAILY [facility] Last Admin: 09/16/18 09:18 Dose: Not Given Promethazine HCl/Codeine (Phenergan/Codeine Oral Syrup) 10 ml PO Q8 PRN PRN Reason: Cough Last Admin: 09/15/18 06:08 Dose: 10 ml Rosuvastatin Calcium (Crestor) 10 mg PO HS [facility] Last Admin: 09/12/18 22:17 Dose: 10 mg Zolpidem Tartrate (Ambien) 5 mg PO HS PRN PRN Reason: Insomnia Last Admin: 09/15/18 21:03 Dose: 5 mg - Labs Labs: 09/15/18 07:26 09/16/18 07:15 Attending/Attestation - Attestation I have personally seen and examined this patient.: Yes I have fully participated in the care of the patient.: Yes I have reviewed all pertinent clinical information, including history, physical exam and plan: Yes Notes (Text): 09/16/18 11:16 I have seen and examined patient with GI fellow. No acute events overnight, he is seen sitting in chair comfortably. He denies abdominal pain, nausea, vomiting, fever/chills. He consumed his breakfast tray in entirety. Review of vitals from today shows elevated BP. Dyspnea, pneumonia GERD Abdominal pain Transaminitis - Diet as tolerated - Continue with antibiotic therapy as per medical team - Continue with PPI therapy - LFTs stable, continue to monitor. Viral hepatitis panel negative, awaiting results from autoimmune panel. - Maintain bowel regimen to prevent constipation - Patient would benefit from EGD/colonoscopy electively as outpatient following resolution of acute infectious process. He would also require close outpatient follow up of elevated LFTs within 1 week. Office contact information provided to patient, will sign off case. Please reconsult as necessary, thank you.
[2018-09-16] MEDS: Aluminum Hydroxide/Magnesium Hydroxide Susp (30 mL) PO PRN (11:07)
[2018-09-16 14:08] VITALS: BP 132/86
--- NOTE | 2018-09-16 14:41 | CP.PCM.PN ---
Subjective - Date & Time of Evaluation Date of Evaluation: 09/16/18 - Subjective Subjective: patient examined today no nausea no vomiting no fever no shortness of breath no diarrhea no dizziness Objective - Vital Signs/Intake and Output Vital Signs (last 24 hours): Temp Pulse Resp BP Pulse Ox 97.8 F 86 20 132/86 96 09/16/18 07:59 09/16/18 07:59 09/16/18 07:59 09/16/18 14:08 09/16/18 07:59 Intake and Output: 09/16/18 09/16/18 06:59 18:59 Intake Total 1960 Balance 1960 - Medications Medications: Current Medications Al Hydrox/Mg Hydrox/Simethicone (Maalox 30 Ml) 30 ml PO Q6 PRN PRN Reason: Indigestion / Heartburn Last Admin: 09/16/18 11:07 Dose: 30 ml Albuterol/Ipratropium (Duoneb 3 Mg/0.5 Mg (3 Ml) Ud) 3 ml INH RQ6 [facility] Last Admin: 09/16/18 13:55 Dose: Not Given Aripiprazole (Abilify) 20 mg PO DAILY [facility] Last Admin: 09/16/18 09:18 Dose: 20 mg Aspirin (Ecotrin) 81 mg PO DAILY [facility] Last Admin: 09/16/18 09:19 Dose: 81 mg Carvedilol (Coreg) 12.5 mg PO BID [facility] Clonazepam (Klonopin) 0.5 mg PO DAILY PRN PRN Reason: depression Last Admin: 09/15/18 11:26 Dose: 0.5 mg Enoxaparin Sodium (Lovenox) 40 mg SC DAILY [facility] Last Admin: 09/16/18 09:18 Dose: 40 mg Famotidine (Pepcid) 20 mg PO BID [facility] Last Admin: 09/16/18 09:19 Dose: 20 mg Fluoxetine HCl (Prozac) 20 mg PO DAILY [facility] Last Admin: 09/16/18 09:19 Dose: 20 mg Azithromycin 500 mg/ Sodium (Chloride) 250 mls @ 250 mls/hr IVPB DAILY [facility]; Protocol Last Admin: 09/16/18 09:17 Dose: 250 mls/hr Ceftriaxone Sodium 1 gm/ (Sodium Chloride) 100 mls @ 100 mls/hr IVPB DAILY [facility]; Protocol Last Admin: 09/16/18 09:17 Dose: 100 mls/hr Sodium Chloride (Sodium Chloride 0.9%) 1,000 mls @ 75 mls/hr IV .[id number] [facility] Last Admin: 09/16/18 06:46 Dose: Not Given Ketorolac Tromethamine (Toradol) 15 mg IVP Q8 PRN PRN Reason: Pain, Mild (1-3) Last Admin: 09/16/18 06:49 Dose: 15 mg Losartan Potassium (Cozaar) 25 mg PO DAILY [facility] Last Admin: 09/16/18 09:19 Dose: 25 mg Pantoprazole Sodium (Protonix Ec Tab) 40 mg PO DAILY [facility] Last Admin: 09/16/18 09:20 Dose: 40 mg Polyethylene Glycol (Miralax) 17 gm PO DAILY [facility] Last Admin: 09/16/18 09:18 Dose: Not Given Promethazine HCl/Codeine (Phenergan/Codeine Oral Syrup) 10 ml PO Q8 PRN PRN Reason: Cough Last Admin: 09/15/18 06:08 Dose: 10 ml Rosuvastatin Calcium (Crestor) 10 mg PO HS [facility] Last Admin: 09/12/18 22:17 Dose: 10 mg Zolpidem Tartrate (Ambien) 5 mg PO HS PRN PRN Reason: Insomnia Last Admin: 09/15/18 21:03 Dose: 5 mg - Labs Labs: 09/15/18 07:26 09/16/18 07:15 - Constitutional Appears: Well - Head Exam Head Exam: ATRAUMATIC, NORMAL INSPECTION, NORMOCEPHALIC - Eye Exam Eye Exam: EOMI, Normal appearance, PERRL Pupil Exam: NORMAL ACCOMODATION, PERRL - ENT Exam ENT Exam: Mucous Membranes Moist, Normal Exam - Neck Exam Neck Exam: Full ROM, Normal Inspection. absent: Lymphadenopathy - Respiratory Exam Respiratory Exam: Decreased Breath Sounds - Cardiovascular Exam Cardiovascular Exam: REGULAR RHYTHM, +S1, +S2 - GI/Abdominal Exam GI & Abdominal Exam: Soft, Diminished Bowel Sounds - Rectal Exam Rectal Exam: Deferred - Neurological Exam Neurological Exam: Oriented x3 Assessment and Plan (1) COPD exacerbation Status: Acute (2) Failure of outpatient treatment Status: Acute (3) HERI (obstructive sleep apnea) Status: Acute (4) Pneumonia Status: Acute (5) Rhabdomyolysis Status: Acute (6) CAD (coronary artery disease) Status: Acute (7) Chest discomfort Status: Acute (8) Chest pain Status: Acute (9) HTN (hypertension) Status: Acute (10) Hypercholesteremia Status: Acute (11) Influenza-like illness Status: Acute (12) Ischemic cardiomyopathy Status: Acute (13) Leg swelling Status: Acute (14) Otitis externa Status: Acute (15) Otitis media Status: Acute (16) Shingles Status: Acute (17) URI (upper respiratory infection) Status: Acute (18) Viral syndrome Status: Acute - Assessment and Plan (Free Text) Plan: mumtaz siddiqui azithromycin ceftriaxone sodium coreg cozaar crestorduoneb ecotrin klonopin lovenox phengergan/codeine oral syrup protonix ec tab prozac sodium chloride toradol medications reviewed labs reviewed vitals reviewed plan discussed with patient and family moderate complexity of care
--- NOTE | 2018-09-16 15:01 | CP.PCM.PN ---
Subjective - Date & Time of Evaluation Date of Evaluation: 09/16/18 Time of Evaluation: 14:53 (//) - Subjective Subjective: Pt seen today, states feels better, comfortable sitting in a chair, denies any chest pain, sob, dizziness. VSS. Labs reviewed. Objective - Vital Signs/Intake and Output Vital Signs (last 24 hours): Temp Pulse Resp BP Pulse Ox 97.8 F 86 20 132/86 96 09/16/18 07:59 09/16/18 07:59 09/16/18 07:59 09/16/18 14:08 09/16/18 07:59 Intake and Output: 09/16/18 09/16/18 06:59 18:59 Intake Total 1960 Balance 1960 - Medications Medications: Current Medications Al Hydrox/Mg Hydrox/Simethicone (Maalox 30 Ml) 30 ml PO Q6 PRN PRN Reason: Indigestion / Heartburn Last Admin: 09/16/18 11:07 Dose: 30 ml Albuterol/Ipratropium (Duoneb 3 Mg/0.5 Mg (3 Ml) Ud) 3 ml INH RQ6 [facility] Last Admin: 09/16/18 13:55 Dose: Not Given Aripiprazole (Abilify) 20 mg PO DAILY [facility] Last Admin: 09/16/18 09:18 Dose: 20 mg Aspirin (Ecotrin) 81 mg PO DAILY [facility] Last Admin: 09/16/18 09:19 Dose: 81 mg Carvedilol (Coreg) 12.5 mg PO BID [facility] Clonazepam (Klonopin) 0.5 mg PO DAILY PRN PRN Reason: depression Last Admin: 09/15/18 11:26 Dose: 0.5 mg Enoxaparin Sodium (Lovenox) 40 mg SC DAILY [facility] Last Admin: 09/16/18 09:18 Dose: 40 mg Famotidine (Pepcid) 20 mg PO BID [facility] Last Admin: 09/16/18 09:19 Dose: 20 mg Fluoxetine HCl (Prozac) 20 mg PO DAILY [facility] Last Admin: 09/16/18 09:19 Dose: 20 mg Azithromycin 500 mg/ Sodium (Chloride) 250 mls @ 250 mls/hr IVPB DAILY [facility]; Pro tocol Last Admin: 09/16/18 09:17 Dose: 250 mls/hr Ceftriaxone Sodium 1 gm/ (Sodium Chloride) 100 mls @ 100 mls/hr IVPB DAILY [facility]; Protocol Last Admin: 09/16/18 09:17 Dose: 100 mls/hr Sodium Chloride (Sodium Chloride 0.9%) 1,000 mls @ 75 mls/hr IV .[id number] [facility] Last Admin: 09/16/18 06:46 Dose: Not Given Ketorolac Tromethamine (Toradol) 15 mg IVP Q8 PRN PRN Reason: Pain, Mild (1-3) Last Admin: 09/16/18 06:49 Dose: 15 mg Losartan Potassium (Cozaar) 25 mg PO DAILY [facility] Last Admin: 09/16/18 09:19 Dose: 25 mg Pantoprazole Sodium (Protonix Ec Tab) 40 mg PO DAILY [facility] Last Admin: 09/16/18 09:20 Dose: 40 mg Polyethylene Glycol (Miralax) 17 gm PO DAILY [facility] Last Admin: 09/16/18 09:18 Dose: Not Given Promethazine HCl/Codeine (Phenergan/Codeine Oral Syrup) 10 ml PO Q8 PRN PRN Reason: Cough Last Admin: 09/15/18 06:08 Dose: 10 ml Rosuvastatin Calcium (Crestor) 10 mg PO HS [facility] Last Admin: 09/12/18 22:17 Dose: 10 mg Zolpidem Tartrate (Ambien) 5 mg PO HS PRN PRN Reason: Insomnia Last Admin: 09/15/18 21:03 Dose: 5 mg - Labs Labs: 09/15/18 07:26 09/16/18 07:15 Assessment and Plan - Assessment and Plan (Free Text) Assessment: 53-year-old male with a history of anxiety, hypertension, came into the ER because of Flu like symptoms, shortness of breath and cough. Pt was seen and examined. VVS. Labs reviewed. Pt has no complaints and symptoms subsided. Pt will continue on PO antibiotics. Discussed with Dr. Maria Alejandra Henriquez to discharge pt home. Spoke to pt and pt understood to follow up with physicians and continue medications. INSTRUCTIONS GIVEN TO PATIENT FOLLOW-UP WITH DR. Maria Alejandra HENRIQUEZ IN 1 WEEK FOLLOW-UP WITH DR. CAMPOS IN 1-2 WEEKS FOLLOW-UP WITH PMD IN 3-5 DAYS TO DISCUSS HIGH ALT(200) TO REDRAW LFTS AND IF HE SHOULD RESUME LIPITOR RESUME ALL HOME MEDICATIONS ACTIVITY TOLERATED START PRESCRIPTION ORDERED COREG 12.5MG BID AUGMENTIN 875MG/125MG BID X 5DAYS MUCINEX 1 TAB PO Q12H X 5 DAYS PRN COUGH
--- NOTE | 2018-09-16 17:38 | IP.NPCORE ---
Heart Failure Core Measure - Heart Failure Ejection Fraction: 40 % or Greater (EF 53%) Left Ventricular Function to be assessed after discharge: No ABIODUN Inhibitor Prescribed: No Contraindication/Reason for not providing: pt on ARB Beta-Tejinder Prescribed: Carvedilol Angiotensin II Receptor Tejinder Prescribed: Yes AnticoagulationTherapy for Atrial Fibrillation/Atrialflutter: No Contraindication/Reason for not providing: pt EF greater than 40 Hydralazine Nitrate Prescribed: No Contraindication/Reason for not providing: pt EF >40 Implantable Cardioverter Defibrillator Therapy: Yes Cardiac Resynchronization Therapy Prescribed: No Contraindication/Reason for not providing: not indicated - Follow up Will be discharged to: Home Follow Up Date (must be within 7 days from discharge): 09/17/18
--- NOTE | 2018-09-16 18:45 | CP.PCM.DIS ---
Provider - Provider Date of Admission: 09/11/18 16:46 Attending physician: Claudia Morfin MD Consults: 09/11/18 17:55 Pulmonology Consult Routine Comment: Consulting Provider: Juan Ugalde Consulting Physician: Juan Ugalde Reason for Consult: pneumonia 09/13/18 15:16 Physician Consult Routine Comment: Consulting Provider: Brielle Campos Consulting Physician: Brielle Campos Reason for Consult: chest discomfort, pneumonia, elevated CK Additional Comments: CAD, PACEMAKER 09/14/18 22:00 Psychiatry Consult Routine Comment: Consulting Provider: Aundrea Lopez Consulting Physician: Aundrea Lopez Reason for Consult: anxiety/panic attacks 09/15/18 10:26 Physician Consult Routine Comment: Consulting Provider: Emiliano Johnson Jr. Consulting Physician: Emiliano Johnson Jr. Reason for Consult: Dilatation B/L iliac arteries Time Spent in preparation of Discharge (in minutes): 30 Diagnosis - Discharge Diagnosis (1) COPD exacerbation Status: Acute (2) Failure of outpatient treatment Status: Acute (3) HERI (obstructive sleep apnea) Status: Acute (4) Pneumonia Status: Acute (5) Rhabdomyolysis Status: Acute (6) CAD (coronary artery disease) Status: Acute (7) Chest discomfort Status: Acute (8) Chest pain Status: Acute (9) HTN (hypertension) Status: Acute (10) Hypercholesteremia Status: Acute (11) Influenza-like illness Status: Acute (12) Ischemic cardiomyopathy Status: Acute (13) Leg swelling Status: Acute (14) Otitis externa Status: Acute (15) Otitis media Status: Acute (16) Shingles Status: Acute (17) URI (upper respiratory infection) Status: Acute (18) Viral syndrome Status: Acute Hospital Course - Lab Results Lab Results: Micro Results 09/11/18 15:00 Blood-Venous Blood Culture - Final NO GROWTH AFTER 5 DAYS 09/11/18 15:00 Blood-Venous Gram Stain - Final TEST NOT PERFORMED 09/11/18 15:45 Blood-Venous Blood Culture - Final NO GROWTH AFTER 5 DAYS 09/11/18 15:45 Blood-Venous Gram Stain - Final TEST NOT PERFORMED 09/12/18 17:26 Sputum Gram Stain - Final 09/12/18 17:26 Sputum Sputum Culture - Final NORMAL ORAL MELIDA Most Recent Lab Values WBC 6.4 K/uL (4.8-10.8) 09/15/18 07:26 RBC 4.13 Mil/uL (4.40-5.90) L 09/15/18 07:26 Hgb 14.5 g/dL (12.0-18.0) 09/15/18 07:26 Hct 42.1 % (35.0-51.0) 09/15/18 07:26 MCV 102.0 fL (80.0-94.0) H 09/15/18 07:26 MCH 35.1 pg (27.0-31.0) H 09/15/18 07:26 MCHC 34.4 g/dL (33.0-37.0) 09/15/18 07:26 RDW 14.2 % (11.5-14.5) 09/15/18 07:26 Plt Count 201 K/uL (130-400) 09/15/18 07:26 MPV 10.9 fL (7.2-11.7) 09/15/18 07:26 Neut % (Auto) 61.7 % (50.0-75.0) 09/15/18 07:26 Lymph % (Auto) 23.9 % (20.0-40.0) 09/15/18 07:26 [place] % (Auto) 11.2 % (0.0-10.0) H 09/15/18 07:26 Eos % (Auto) 2.4 % (0.0-4.0) 09/15/18 07:26 Baso % (Auto) 0.8 % (0.0-2.0) 09/15/18 07:26 Neut # (Auto) 3.9 K/uL (1.8-7.0) 09/15/18 07:26 Lymph # (Auto) 1.5 K/uL (1.0-4.3) 09/15/18 07:26 [place] # (Auto) 0.7 K/uL (0.0-0.8) 09/15/18 07:26 Eos # (Auto) 0.2 K/uL (0.0-0.7) 09/15/18 07:26 Baso # (Auto) 0.1 K/uL (0.0-0.2) 09/15/18 07:26 pO2 26 mm/Hg (30-55) L 09/11/18 16:23 VBG pH 7.42 (7.32-7.43) 09/11/18 16:23 VBG pCO2 43 mmHg (40-60) 09/11/18 16:23 VBG HCO3 25.9 mmol/L 09/11/18 16:23 VBG Total CO2 29.2 mmol/L (22-28) H 09/11/18 16:23 VBG O2 Sat (Calc) 53.9 % (40-65) 09/11/18 16:23 VBG Base Excess 2.9 mmol/L (0.0-2.0) H 09/11/18 16:23 VBG Potassium 3.7 mmol/L (3.6-5.2) 09/11/18 16:23 Sodium 131.0 mmol/l (132-148) L 09/11/18 16:23 Chloride 98.0 mmol/L (98-107) 09/11/18 16:23 Glucose 92 mg/dl (75-110) 09/11/18 16:23 Lactate 1.3 mmol/L (0.7-2.1) 09/11/18 16:23 Sodium 141 mmol/L (132-148) 09/16/18 07:15 Potassium 4.4 mmol/L (3.6-5.2) 09/16/18 07:15 Chloride 105 mmol/L (98-107) 09/16/18 07:15 Carbon Dioxide 25 mmol/L (22-30) 09/16/18 07:15 Anion Gap 15 (10-20) 09/16/18 07:15 BUN 13 mg/dL (9-20) 09/16/18 07:15 Creatinine 0.9 mg/dL (0.8-1.5) 09/16/18 07:15 Est GFR ( Amer) > 60 09/16/18 07:15 Est GFR (Non-Af Amer) > 60 09/16/18 07:15 POC Glucose (mg/dL) 120 mg/dL (65-110) H 09/13/18 12:42 Random Glucose 99 mg/dL (75-110) 09/16/18 07:15 Calcium 8.6 mg/dl (8.6-10.4) 09/16/18 07:15 Total Bilirubin 0.6 mg/dL (0.2-1.3) 09/16/18 07:15 AST 136 U/L (17-59) H 09/16/18 07:15 ALT 200 U/L (21-72) H 09/16/18 07:15 Alkaline Phosphatase 85 U/L (38-126) 09/16/18 07:15 Total Creatine Kinase 741 U/L (44-196) H 09/13/18 12:56 CK-MB (Mass) 3.57 ng/mL (0.0-3.38) H 09/13/18 12:56 Troponin I < 0.0120 ng/mL (0.00-0.120) 09/13/18 12:56 Total Protein 6.6 g/dL (6.3-8.3) 09/16/18 07:15 Albumin 3.4 g/dL (3.5-5.0) L 09/16/18 07:15 Globulin 3.2 gm/dL (2.2-3.9) 09/16/18 07:15 Albumin/Globulin Ratio 1.1 (1.0-2.1) 09/16/18 07:15 Venous Blood Potassium 3.7 mmol/L (3.6-5.2) 09/11/18 16:23 Urine Opiates Screen Positive (NEGATIVE) H 09/15/18 13:36 Urine Methadone Screen Negative (NEGATIVE) 09/15/18 13:36 Ur Barbiturates Screen Negative (NEGATIVE) 09/15/18 13:36 Ur Phencyclidine Scrn Negative (NEGATIVE) 09/15/18 13:36 Ur Amphetamines Screen Negative (NEGATIVE) 09/15/18 13:36 U Benzodiazepines Scrn Negative (NEGATIVE) 09/15/18 13:36 U Oth Cocaine Metabols Negative (NEGATIVE) 09/15/18 13:36 U Cannabinoids Screen Negative (NEGATIVE) 09/15/18 13:36 Anti-Mitochondrial Ab Negative (Negative) 09/15/18 11:51 Anti-Smooth Muscle Ab Negative (Negative) 09/15/18 11:51 Hepatitis A IgM Ab Negative (NEGATIVE) 09/15/18 09:57 Hep Bs Antigen Negative (NEGATIVE) 09/15/18 09:57 Hep B Core IgM Ab Negative (NEGATIVE) 09/15/18 09:57 Hepatitis C Antibody Negative (NEGATIVE) 09/15/18 09:57 - Hospital Course Hospital Course: mumtaz siddiqui azithromycin ceftriaxone sodium coreg cozaar crestorduoneb ecotrin klonopin lovenox phengergan/codeine oral syrup protonix ec tab prozac sodium chloride toradol medications reviewed labs reviewed vitals reviewed plan discussed with patient and family moderate complexity of care For discharge Patient refused to the rehab although wants the patient's to go to rehab As ordered discharge on Augmentin 500 p.o. twice daily and Mucinex Protonix and other medication as ordered Discharge Exam - Head Exam Head Exam: ATRAUMATIC, NORMAL INSPECTION, NORMOCEPHALIC - ENT Exam ENT Exam: Mucous Membranes Moist - Neck Exam Neck exam: Full Rom - Respiratory Exam Respiratory Exam: Decreased Breath Sounds, Rales - Cardiovascular Exam Cardiovascular Exam: REGULAR RHYTHM, +S1, +S2 - GI/Abdominal Exam GI & Abdominal Exam: Diminished Bowel Sounds, Soft - Rectal Exam Rectal Exam: Deferred - Neurological Exam Neurological exam: Oriented x3 - Psychiatric Exam Psychiatric exam: Normal Affect Discharge Plan - Discharge Medications Prescriptions: Amoxicillin/Clavulanate [Augmentin 875 MG-125 MG] 1 tab PO BID 5 Days #10 tab Aspirin [Ecotrin] 81 mg PO DAILY #30 tabec guaiFENesin/Dextromethorphan [guaiFENesin/DM 600-30 mg] 1 tab PO Q12H PRN 5 Days #10 tab PRN Reason: Cough Pantoprazole [Protonix EC Tab] 40 mg PO DAILY 30 Days ect - Follow Up Plan Condition: GOOD Disposition: HOME/ ROUTINE Instructions: Pneumonia, Adult (DC), Exacerbation of COPD (DC), Rhabdomyolysis (DC), Amoxicillin and Clavulanate, Guaifenesin and Dextromethorphan Additional Instructions: FOLLOW-UP WITH DR. Maria Alejandra MORFIN IN 1 WEEK FOLLOW-UP WITH DR. CAMPOS IN 1-2 WEEKS FOLLOW-UP WITH PMD IN 3-5 DAYS TO DISCUSS HIGH ALT(200) TO REDRAW LFTS AND IF HE SHOULD RESUME LIPITOR RESUME ALL HOME MEDICATIONS ACTIVITY TOLERATED START PRESCRIPTION ORDERED COREG 12.5MG BID AUGMENTIN 875MG/125MG BID X 5DAYS MUCINEX 1 TAB PO Q12H X 5 DAYS PRN COUGH Referrals: Laura Morfin MD [Staff Provider] - Brielle Campos MD [Staff Provider] -
== END 2018-09-16 15:05 | disposition home or self-care (01) | DRG 190 ==
LOC: C.ER 15:02 → C.9E 16:46 → C.3T 17:22 → C.9E 17:24 → C.3T 18:12
PROVIDERS: ADMIT Internal Medicine Nephrology; ATTEND Internal Medicine Nephrology
DX: J44.0 Chronic obstructive pulmonary disease with (acute) lower respiratory infection (principal); J18.9 Pneumonia, unspecified organism; M62.82 Rhabdomyolysis; J44.1 Chronic obstructive pulmonary disease with (acute) exacerbation; I25.5 Ischemic cardiomyopathy; I10 Essential (primary) hypertension; G47.33 Obstructive sleep apnea (adult) (pediatric); I72.3 Aneurysm of iliac artery; I25.10 Atherosclerotic heart disease of native coronary artery without angina pectoris; N40.0 Benign prostatic hyperplasia without lower urinary tract symptoms; F41.0 Panic disorder [episodic paroxysmal anxiety]; K21.9 Gastro-esophageal reflux disease without esophagitis; R07.89 Other chest pain; Z68.41 Body mass index [BMI] 40.0-44.9, adult; B02.9 Zoster without complications; F39 Unspecified mood [affective] disorder; R79.89 Other specified abnormal findings of blood chemistry; R74.0 Nonspecific elevation of levels of transaminase and lactic acid dehydrogenase [LDH]; G89.29 Other chronic pain; E66.9 Obesity, unspecified; E78.5 Hyperlipidemia, unspecified; E78.00 Pure hypercholesterolemia, unspecified; F17.210 Nicotine dependence, cigarettes, uncomplicated; K59.00 Constipation, unspecified; I25.2 Old myocardial infarction; Z95.810 Presence of automatic (implantable) cardiac defibrillator; Z95.5 Presence of coronary angioplasty implant and graft; Z98.1 Arthrodesis status; Z79.899 Other long term (current) drug therapy